=== PATIENT | male | born 1950 | race Caucasian/White ===

== ENCOUNTER → 2018-07-02 11:26 | Outpatient (CLI) | payer OTHER, SELFPAY ==
[2018-07-02 12:10] LABS: Add Manual Diff / Slide Review NO; Basophils Absolute Auto 0 /uL (0-100); Basophils Percent Auto 0.9 % (0-2); Eosinophils Absolute Auto 200 /uL (0-450); Eosinophils Percent Auto 4.7 % (2-4); Hematocrit 43.8 % (41-53); Hemoglobin 14.9 g/dL (13.5-17.5); Lymphocytes Absolute Auto 2100 /uL (1100-4500); Lymphocytes Percent Auto 40.2 % (25-40); Mean Corpuscular Hemoglobin 31.4 PG (26-34); Mean Corpuscular Volume 92.5 fL (80-100); Monocytes Absolute Auto 700 /uL (0-900); Monocytes Percent Auto 12.5 % (3-14); Neutrophils Absolute Auto 2200 /uL (1500-7000); Neutrophils Percent Auto 41.7 % (50-75); Platelet Count 160 X10^3/uL (150-400); Red Blood Cell Count 4.73 X10^6/uL (4.5-5.9); Red Cell Distribution Width 12.9 % (11.6-14.8); White Blood Cell Count 5.2 X10^3/uL (4.5-11.0)
[2018-07-02 12:20] LABS: Alanine Aminotransferase 47 IU/L (21-72); Albumin 4.5 g/dL (3.5-5.0); Albumin Globulin Ratio 1.4 (1.0-2.8); Alkaline Phosphatase 69 U/L (38-126); Aspartate Aminotransferase 51 IU/L (17-59); Bilirubin Total 0.7 mg/dL (0.2-1.3); Blood Urea Nitrogen 19 mg/dL (9-20); Calcium 9.7 mg/dL (8.4-10.2); Carbon Dioxide 25 mmol/L (22-32); Chloride 104 mmol/L (98-107); Cholesterol 238 mg/dL (140-199); Estimated Glomerular Filt Rate > 60.0 mL/min (>60); Globulin 3.2 g/dL (1.7-4.1); Glucose 109 mg/dL (80-110); HDL Cholesterol 63 mg/dL (40-60); HEMOLYSIS < 15 (0-50); LDL Cholesterol Calculated 155 mg/dL (<100); Potassium 4.4 mmol/L (3.4-5.1); Sodium 139 mmol/L (137-145); Total Protein 7.7 g/dL (6.3-8.2); Triglycerides 100 mg/dL (35-150)
[2018-07-02 12:51] LABS: Prostate Specific Antigen Scrn 0.784 ng/mL (0.1-4.0)
[2018-07-02 13:31] LABS: TSH w/ Reflex to FT4 2.02 uIU/mL (0.47-4.68)
== END ==
PROVIDERS: Family Provider Family Medicine; PCP Family Medicine; Visit Provider Family Medicine
DX: E78.5 Hyperlipidemia, unspecified (principal); E66.9 Obesity, unspecified; Z12.5 Encounter for screening for malignant neoplasm of prostate
CPT/HCPCS: 80053; 80061; 84443; 85025; G0103

== ENCOUNTER → 2018-09-27 09:24 | Outpatient (CLI) | payer OTHER, SELFPAY ==
[2018-09-27 10:07] LABS: Cholesterol 261 mg/dL (140-199); Glucose 110 mg/dL (80-110); HDL Cholesterol 90 mg/dL (40-60); LDL Cholesterol Calculated 146 mg/dL (<100); Triglycerides 123 mg/dL (35-150)
== END ==
PROVIDERS: PCP Family Medicine; Visit Provider Family Medicine
DX: E78.5 Hyperlipidemia, unspecified (principal); R73.03 Prediabetes
CPT/HCPCS: 36415; 80061; 82947

== ENCOUNTER 2019-05-19 23:50 | Emergency (ER) | payer OTHER, SELFPAY ==
--- NOTE | 2019-05-19 23:55 | ED_ITS ---
HPI - GI Bleed General Chief complaint: GI Bleed Stated complaint: bleeding from rectum Time Seen by Provider: 05/19/19 23:54 Source: patient and family Mode of arrival: Ambulatory Limitations: no limitations History of Present Illness HPI Narrative: 68-year-old male nonsmoker with history of lower extremity varicose veins presents with his and a chief complaint of painless rectal bleeding this evening. He states that he was preparing to have a bowel movement when he felt something drip on his leg and noted it was blood at which point he came to . He denies any dizziness, weakness or lightheadedness. He has had no diaphoresis, chest pain or shortness of breath. He denies any history of the same. He takes no blood thinners and states his last colonoscopy was 2 years ago and had no significant findings. He does admit to some firm stools alternating with diarrhea lately and has strain on the toilet, additionally he had a 5 [address] ride. He denies any abdominal pain. MD complaint: blood on toilet paper Onset (ago): minute(s) Pain Consistency: constant Severity: mild Relieving factors: none Exacerbating factors: none Treatments Prior to Arrival: none Related Data Home Medications Medication Instructions Recorded Confirmed omeprazole 20 mg PO QDAY #0 05/02/16 04/24/19 [calcium/magnesium] #0 03/27/17 04/24/19 [potassium otc] #0 03/27/17 04/24/19 vit C,E,zinc,copper-kokam3e 250 1 cap PO DAILY 08/15/18 04/24/19 mg-lutein 5 mg-zeaxanthin 1 mg capsule naproxen sodium 220 mg capsule 220 mg PO BID PRN 03/29/19 04/24/19 psyllium husk 3.4 gram/5.4 gram 1 tbsp PO DAILY 03/29/19 04/24/19 oral powder Previous Rx's Medication Instructions Recorded hydroxyzine HCl 25 mg tablet 25 mg PO BID PRN 30 Days #60 tab 04/24/19 hydrocortisone [Anusol-HC] 1 applictn CA BID-QID PRN #30 gram 05/20/19 Allergies Allergy/AdvReac Type Severity Reaction Status Date / Time No Known Drug Allergies Allergy Verified 04/24/19 15:21 Review of Systems Constitutional Constitutional: Denies chills, Denies fatigue, Denies fever(s), Denies frequent falls, Denies lethargy and Denies weakness Eyes Eyes: Denies change in vision, Denies eye discharge, Denies irritation and Denies loss of vision ENT Ears, Nose, Mouth, and Throat: Denies change in voice, Denies dizziness, Denies neck pain, Denies sore throat and Denies throat swelling Cardiovascular Cardiovascular: Denies chest pain, Denies irregular heart rhythm, Denies lightheadedness, Denies palpitations, Denies dyspnea, Denies dyspnea on exertion and Denies orthopnea Respiratory Respiratory: Denies cough, Denies dyspnea, Denies dyspnea on exertion and Denies wheezing Gastrointestinal Gastrointestinal: Denies abdominal pain, Denies change in bowel habits, Denies diarrhea, Denies nausea and Denies vomiting Comments: Bright red blood per rectum Genitourinary Genitourinary: Denies hematuria, Denies flank pain, Denies urinary incontinence and Denies urinary urgency Musculoskeletal Musculoskeletal: Denies back pain, Denies muscle weakness, Denies neck pain, Denies numbness and Denies tingling Integumentary/Breasts Skin/Breast: Denies pruritus, Denies erythema, Denies rash and Denies wounds Neurologic Neurologic: Denies behavioral changes, Denies confusion, Denies dizziness, Denies frequent falls, Denies loss of vision, Denies numbness, Denies tingling and Denies weakness Psychiatric Psychiatric: Denies anxiety, Denies behavioral changes, Denies confusion, Denies depression, Denies homicidal ideation and Denies suicidal ideation Endocrine Endocrine: Denies fatigue, Denies flushing and Denies palpitations Hematologic/Lymphatic Hematologic/Lymphatic: Denies easy bruising Allergic/Immunologic Allergic/Immunologic: Denies urticaria, Denies throat swelling and Denies wheezing Patient History Medical History Acne (Chronic 1961) Chicken pox (Resolved) Colon polyps (Resolved 2016) Eczema (Chronic 1950) GERD (gastroesophageal reflux disease) (Chronic) Hemorrhoids (Chronic) Hernia (Resolved 1987) Mumps (Resolved) Peripheral vascular disease (Chronic) Surgical History Anesthesia (Resolved) History of carpal tunnel repair (Resolved 04/26/17) History of colonoscopy with polypectomy (Resolved 2016) Status post hernia repair (Resolved 1997) Family History Brother Age: 75 Crohn's disease without complication, unspecified gastrointestinal tract location Father Alzheimer's dementia without behavioral disturbance, unspecified timing of dementia onset Tobacco use disorder Brother No problems noted. Grandfather No problems noted. Mother Hip fracture Social History Smoking Status: Never smoker Exam Narrative Exam Narrative: GEN: 68-year-old male appears stated age AOx3 and in mild distress EYES: Pupils are equal, round, and reactive to light and accommodation. Extraoccular muscles are intact bilaterally. There is no subconjunctival hemorrhage or exudate. CHEST: Lungs are clear to auscultation bilaterally and free of wheezes, rales, or rhonchi. Heart rate is regular rhythm, there are no murmurs, clicks, rubs, or gallops. There is no chest wall tenderness. ABD: Abdomen is soft and nontender. There is no guarding or rebound. Bowel sounds are normal in all 4 quadrants. There is no mass or organomegaly. RECTAL: Small external hemorrhoid with minimal bleeding. Small clout wiped away and mild bleeding noted. No thrombus. Rectal otherwise normal without pain or bleeding EXT: Full painless ROM of all extremities with no loss of sensation or strength. SKIN: Warm, pink, and dry. No erythema or rash Initial Vital Signs Initial Vital Signs: Vital Signs Temperature 97.5 F L 05/19/19 23:57 Pulse Rate 76 05/19/19 23:57 Respiratory Rate 18 05/19/19 23:57 Blood Pressure 168/94 H 05/19/19 23:57 Pulse Oximetry 97 05/19/19 23:57 Course Vital Signs Vital signs: Vital Signs - 8 hr 05/19/19 23:57 Temperature 97.5 F L Pulse Rate 76 Respiratory Rate 18 Blood Pressure 168/94 H Pulse Oximetry 97 Discharge Plan Departure Patient Disposition: Home Clinical Impression: Bleeding external hemorrhoids Instructions: DI for Hemorrhoids Activity Restrictions/Additional Instructions: *You have been diagnosed with [bleeding external hemorrhoid] *What to do: *Take medications as directed: Your prescription was sent to [facility]. There are multiple bwht-[id number] medications such as preparation H. also consider Sitz baths and a hemorrhoid donut *Follow up with your primary care provider in 2-3 days, call for an appointment. Let them know you were seen in the Emergency Department and that we ask that you be seen in follow up *Return to ER if you should have any new, worsening or concerning symptoms Prescriptions: New hydrocortisone [Anusol-HC] 2.5 % cream with perineal applicator 1 applictn CA BID-QID PRN (Reason: hemorrhoids) Qty: 30 RF: 0 No Action omeprazole 20 MG capsule,delayed release(DR/EC) 20 mg PO QDAY Qty: 0 RF: 0 [calcium/magnesium] Qty: 0 RF: 0 [potassium otc] Qty: 0 RF: 0 Ocuvite Adult 50 Plus 250-5-1 mg capsule 1 cap PO DAILY RF: 0 Metamucil 3.4 gram/5.4 gram powder 1 tbsp PO DAILY RF: 0 naproxen sodium [Aleve] 220 mg capsule 220 mg PO BID PRNRF: 0 hydroxyzine HCl 25 mg tablet 25 mg PO BID PRN (Reason: itching) 30 Days Qty: 60 RF: 0 Referrals: Emily Charles DO [Primary Care Provider] -
[2019-05-19 23:57] VITALS: BP 168/94; PULSE 76; RESP 18; TEMP 36.4; O2SAT 97
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
== END 2019-05-20 00:31 | disposition home or self-care (01) ==
PROVIDERS: Emergency Provider Emergency Medicine; PCP Family Medicine
DX: K64.4 Residual hemorrhoidal skin tags (principal); K62.5 Hemorrhage of anus and rectum
CPT/HCPCS: 99282

== ENCOUNTER → 2019-06-21 14:14 | Outpatient (CLI) | payer MEDICARE, SELFPAY ==
[2019-06-21 16:08] LABS: Blood Urea Nitrogen 15 mg/dL (9-20); Calcium 9.9 mg/dL (8.4-10.2); Carbon Dioxide 28 mmol/L (22-32); Chloride 100 mmol/L (98-107); Estimated Glomerular Filt Rate > 60.0 mL/min (>60); Glucose 122 mg/dL (80-110); HEMOLYSIS < 15 (0-50); Potassium 4.4 mmol/L (3.4-5.1); Sodium 138 mmol/L (137-145)
== END ==
PROVIDERS: PCP Family Medicine; Visit Provider Family Medicine
DX: R25.2 Cramp and spasm (principal)
CPT/HCPCS: 36415; 80048; 83735

== ENCOUNTER → 2019-08-26 09:20 | Outpatient (CLI) | payer MEDICARE, SELFPAY ==
[2019-08-26 10:19] LABS: Free T4, Direct Thyroxine 1.01 ng/dL (0.78-2.19)
[2019-08-26 10:33] LABS: Thyroid Stimulating Hormone 2.88 uIU/mL (0.47-4.68)
== END ==
PROVIDERS: PCP Family Medicine; Referring Provider Family Medicine; Visit Provider Family Medicine
DX: R53.83 Other fatigue (principal)
CPT/HCPCS: 36415; 84439; 84443; 84481

== ENCOUNTER → 2019-09-11 12:32 | Outpatient (CLI) | payer MEDICARE, SELFPAY ==
--- NOTE | 2019-09-11 12:34 | DI.MRI.S_ITS ---
PROCEDURE: MR BRAIN (IAC) WWO CON INDICATIONS: joint pain and parestesias TECHNIQUE: Noncontrast sagittal T1 spin echo, axial FLAIR, axial gradient echo, axial diffusion and ADC through the brain. Axial thin-slice 3D CISS, coronal TruFISP, axial T1 spin echo with fat saturation through the internal auditory canals. After the administration of contrast, thin slice axial and coronal T1 spin echo with fat saturation through the internal auditory canals, and axial T1 spin echo with fat saturation through the brain. COMPARISON: None. FINDINGS: Image quality: Excellent. Cerebellopontine angles: No cerebellopontine angle masses. Inner ear structures appear normally formed. No suspicious enhancement in the internal auditory canal or along the course of the 7th cranial nerve. CSF spaces: Ventricles are normal in size and shape. No extra-axial fluid collections. Basal cisterns are patent. Brain: No intracranial bleeds or mass effects. Guillory-white matter interface is intact. No abnormal intracranial enhancement. Diffusion weighted images demonstrate no acute ischemic insults. Brainstem appears normal. Normal intravascular flow voids are present. Skull and face: Calvarial marrow signal is normal. Orbits appear normal. Sinuses: Sinuses and mastoids are clear. IMPRESSION: Normal for age, source of current symptoms is not found. No skull base mass lesion or evidence of cranial nerve inflammation is seen. Minimal identifiable microvascular atherosclerotic change is seen within the deep white matter of each hemisphere. Dictated by: Jero Jenkins M.D. on 09/11/2019 at 14:21 Approved by: Jero Jenkins M.D. on 09/11/2019 at 14:24
== END ==
PROVIDERS: PCP Family Medicine; Referring Provider Family Medicine; Visit Provider Family Medicine
DX: M25.50 Pain in unspecified joint (principal); R20.2 Paresthesia of skin
CPT/HCPCS: 70553

== ENCOUNTER → 2019-09-16 11:24 | Outpatient (CLI) | payer MEDICARE, SELFPAY ==
--- NOTE | 2019-09-16 11:26 | DI.US.S_ITS ---
PROCEDURE: US SOFT TISSUE HEAD AND NECK INDICATIONS: TMJ TECHNIQUE: Real-time scanning was performed of the neck region of interest, with image documentation. Doppler imaging was also employed. COMPARISON: [facility], MR, MR BRAIN ([facility]) WWO CON, 09/11/2019, 12:52. FINDINGS: Scanning is performed at the area of clinical concern involving the left jaw to the left temporal region. Within this area, no masses or abnormal fluid collections are seen. A normal appearing lymph node can be seen. Comparison images were obtained of the right side and no significant abnormality can be seen. IMPRESSION: No masses or other significant abnormality can be seen within the area of clinical concern ultrasound. Dictated by: Bienvenido Sandoval M.D. on 09/16/2019 at 11:45 Approved by: Bienvenido Sandoval M.D. on 09/16/2019 at 11:47
== END ==
PROVIDERS: PCP Family Medicine; Referring Provider Family Medicine; Visit Provider Family Medicine
DX: M26.602 Left temporomandibular joint disorder, unspecified (principal)
CPT/HCPCS: 76536

== ENCOUNTER → 2019-12-25 12:16 | Outpatient (CLI) | payer MEDICARE, SELFPAY ==
[2019-12-25 13:44] LABS: Alanine Aminotransferase 38 IU/L (<50); Albumin 4.4 g/dL (3.5-5.0); Albumin Globulin Ratio 1.6 (1.0-2.8); Alkaline Phosphatase 77 U/L (38-126); Aspartate Aminotransferase 51 IU/L (17-59); BUN Creatinine Ratio 15.7 (6-22); Bilirubin Total 0.7 mg/dL (0.2-1.3); Blood Urea Nitrogen 14 mg/dL (9-20); Calcium 9.8 mg/dL (8.4-10.2); Carbon Dioxide 28 mmol/L (22-32); Chloride 104 mmol/L (98-107); Cholesterol 248 mg/dL (140-199); Estimated Glomerular Filt Rate > 60.0 mL/min (>60); Globulin 2.7 g/dL (1.7-4.1); Glucose 112 mg/dL (80-110); HDL Cholesterol 68 mg/dL (40-60); HEMOLYSIS < 15 (0-50); LDL Cholesterol Calculated 155 mg/dL (<100); Potassium 4.3 mmol/L (3.4-5.1); Sodium 138 mmol/L (137-145); Total Protein 7.1 g/dL (6.3-8.2); Triglycerides 125 mg/dL (35-150)
== END ==
PROVIDERS: PCP Family Medicine; Referring Provider Family Medicine; Visit Provider Family Medicine
DX: E66.9 Obesity, unspecified (principal); E78.5 Hyperlipidemia, unspecified; R03.0 Elevated blood-pressure reading, without diagnosis of hypertension; R73.03 Prediabetes
CPT/HCPCS: 36415; 80053; 80061

== ENCOUNTER → 2019-12-26 12:01 | Outpatient (CLI) | payer MEDICARE, SELFPAY ==
[2019-12-30 00:41] LABS: COVID19 Sendout Not Detected (Not Detected)
== END ==
PROVIDERS: PCP Family Medicine; Visit Provider Physician Assistant
DX: J02.9 Acute pharyngitis, unspecified (principal)
CPT/HCPCS: 87635

== ENCOUNTER → 2020-10-15 09:11 | Outpatient (CLI) | payer OTHER, SELFPAY ==
[2020-10-15 11:16] LABS: Alanine Aminotransferase 23 IU/L (<50); Albumin 4.5 g/dL (3.5-5.0); Albumin Globulin Ratio 1.5 (1.0-2.8); Alkaline Phosphatase 85 U/L (38-126); Aspartate Aminotransferase 36 IU/L (17-59); BUN Creatinine Ratio 13.4 (6-22); Bilirubin Total 0.8 mg/dL (0.2-1.3); Blood Urea Nitrogen 11 mg/dL (9-20); Calcium 9.8 mg/dL (8.4-10.2); Carbon Dioxide 25 mmol/L (22-32); Chloride 101 mmol/L (98-107); Cholesterol 273 mg/dL (140-199); Estimated Glomerular Filt Rate > 60.0 mL/min (>60); Glucose 120 mg/dL (80-110); HDL Cholesterol 86 mg/dL (40-60); HEMOLYSIS < 15 (0-50); LDL Cholesterol Calculated 157 mg/dL (<100); Sodium 135 mmol/L (137-145); Total Protein 7.5 g/dL (6.3-8.2); Triglycerides 152 mg/dL (35-150)
== END ==
PROVIDERS: PCP Family Medicine; Referring Provider Family Medicine; Visit Provider Family Medicine
DX: E66.9 Obesity, unspecified (principal); I10 Essential (primary) hypertension; E78.5 Hyperlipidemia, unspecified; R73.03 Prediabetes; S03.40XA Sprain of jaw, unspecified side, initial encounter
CPT/HCPCS: 36415; 80053; 80061

== ENCOUNTER → 2021-04-12 11:08 | Outpatient (CLI) | payer OTHER, SELFPAY ==
[2021-04-12 12:21] LABS: Alanine Aminotransferase 27 IU/L (<50); Albumin 4.6 g/dL (3.5-5.0); Albumin Globulin Ratio 1.4 (1.0-2.8); Alkaline Phosphatase 78 U/L (38-126); Aspartate Aminotransferase 48 IU/L (17-59); BUN Creatinine Ratio 14.9 (6-22); Bilirubin Total 0.2 mg/dL (0.2-1.3); Blood Urea Nitrogen 15 mg/dL (9-20); Calcium 9.6 mg/dL (8.4-10.2); Carbon Dioxide 25 mmol/L (22-32); Chloride 104 mmol/L (98-107); Estimated Glomerular Filt Rate > 60.0 mL/min (>60); Globulin 3.2 g/dL (1.7-4.1); Glucose 103 mg/dL (80-110); HEMOLYSIS < 15 (0-50); Sodium 140 mmol/L (137-145); Total Protein 7.8 g/dL (6.3-8.2)
[2021-04-12 14:55] LABS: Microalbumin Urine Random 1.5 mg/dL (0-1.6)
[2021-04-12 14:56] LABS: Creatinine Urine Random 117.8 mg/dL; Microalbumi Creatinin Ratio Ur 12.7 ug/mg CR (<30)
== END ==
PROVIDERS: PCP Family Medicine; Referring Provider Family Medicine; Visit Provider Family Medicine
DX: E66.9 Obesity, unspecified (principal); E78.5 Hyperlipidemia, unspecified; I10 Essential (primary) hypertension; R73.03 Prediabetes
CPT/HCPCS: 36415; 80053; 82043; 82570

== ENCOUNTER → 2021-06-01 09:11 | Outpatient (CLI) | payer OTHER, SELFPAY ==
[2021-06-02 09:36] LABS: Interpretation Negative (Negative)
== END ==
PROVIDERS: PCP Family Medicine; Referring Provider Family Medicine; Visit Provider Family Medicine
DX: K21.9 Gastro-esophageal reflux disease without esophagitis (principal)
CPT/HCPCS: 83013

== ENCOUNTER → 2021-09-28 09:05 | Outpatient (CLI) | payer OTHER, SELFPAY ==
[2021-09-28 10:17] LABS: Add Manual Diff / Slide Review NO; Basophils Absolute Auto 0 /uL (0-100); Basophils Percent Auto 0.8 % (0-2); Eosinophils Absolute Auto 200 /uL (0-450); Eosinophils Percent Auto 4.2 % (2-4); Hematocrit 38.5 % (41-53); Hemoglobin 12.6 g/dL (13.5-17.5); Lymphocytes Absolute Auto 1100 /uL (1100-4500); Lymphocytes Percent Auto 20.1 % (25-40); Mean Corpuscular HGB Conc 32.7 % (30-36); Mean Corpuscular Hemoglobin 26.9 PG (26-34); Mean Corpuscular Volume 82.2 fL (80-100); Monocytes Absolute Auto 900 /uL (0-900); Monocytes Percent Auto 15.6 % (3-14); Neutrophils Absolute Auto 3300 /uL (1500-7000); Neutrophils Percent Auto 59.3 % (50-75); Platelet Count 186 X10^3/uL (150-400); Red Blood Cell Count 4.68 X10^6/uL (4.5-5.9); Red Cell Distribution Width 15.9 % (11.6-14.8); White Blood Cell Count 5.5 X10^3/uL (4.5-11.0)
[2021-09-28 10:32] LABS: Alanine Aminotransferase 18 IU/L (<50); Albumin 4.7 g/dL (3.5-5.0); Albumin Globulin Ratio 1.4 (1.0-2.8); Alkaline Phosphatase 88 U/L (38-126); Aspartate Aminotransferase 27 IU/L (17-59); BUN Creatinine Ratio 12.2 (6-22); Bilirubin Total 0.6 mg/dL (0.2-1.3); Blood Urea Nitrogen 11 mg/dL (9-20); C-Reactive Protein Quant 0.6 mg/dL (<1.0); Calcium 9.5 mg/dL (8.4-10.2); Carbon Dioxide 25 mmol/L (22-32); Chloride 101 mmol/L (98-107); Cholesterol 254 mg/dL (140-199); Estimated Glomerular Filt Rate > 60.0 mL/min (>60); Globulin 3.4 g/dL (1.7-4.1); Glucose 127 mg/dL (80-110); HDL Cholesterol 69 mg/dL (40-60); HEMOLYSIS < 15 (0-50); LDL Cholesterol Calculated 153 mg/dL (<100); Potassium 4.2 mmol/L (3.4-5.1); Sodium 137 mmol/L (137-145); Total Protein 8.1 g/dL (6.3-8.2); Triglycerides 161 mg/dL (35-150)
[2021-09-28 10:49] LABS: Erythrocyte Sedimentation Rate 29 MM/HR (0-15)
== END ==
PROVIDERS: PCP Family Medicine; Referring Provider Family Medicine; Visit Provider Family Medicine
DX: E78.5 Hyperlipidemia, unspecified (principal); I10 Essential (primary) hypertension; R73.03 Prediabetes
CPT/HCPCS: 36415; 80053; 80061; 85025; 85651; 86140

== ENCOUNTER → 2021-11-10 11:29 | Outpatient (CLI) | payer OTHER, SELFPAY ==
[2021-11-12 11:09] LABS: Hemoglobin A1C% w Est Avg Glu 6.1 % (4.0-6.0)
[2021-11-12 11:21] LABS: HEMOLYSIS < 15 (0-50); Iron 79 ug/dL (49-181)
[2021-11-12 11:32] LABS: Percent Iron Saturation 18 % (20-50); Total Iron Binding Capacity 443 ug/dL (261-462); Transferrin 368 mg/dL (206-381)
[2021-11-12 11:52] LABS: TSH w/ Reflex to FT4 2.51 uIU/mL (0.47-4.68)
[2021-11-12 12:50] LABS: Ferritin 11 ng/mL (18-464)
== END ==
PROVIDERS: PCP Family Medicine; Referring Provider Family Medicine; Visit Provider Family Medicine
DX: E78.5 Hyperlipidemia, unspecified (principal); I10 Essential (primary) hypertension; E66.9 Obesity, unspecified; R73.03 Prediabetes
CPT/HCPCS: 36415; 82728; 83036; 83540; 83550; 84443

== ENCOUNTER → 2022-03-24 13:55 | Outpatient (CLI) | payer OTHER, SELFPAY ==
[2022-03-24 15:22] LABS: Add Manual Diff / Slide Review NO; Basophils Absolute Auto 100 /uL (0-100); Eosinophils Absolute Auto 300 /uL (0-450); Eosinophils Percent Auto 5.6 % (2-4); Hematocrit 37.7 % (41-53); Hemoglobin 12.6 g/dL (13.5-17.5); Lymphocytes Absolute Auto 2100 /uL (1100-4500); Lymphocytes Percent Auto 36.2 % (25-40); Mean Corpuscular HGB Conc 33.6 % (30-36); Mean Corpuscular Volume 83.5 fL (80-100); Monocytes Absolute Auto 800 /uL (0-900); Monocytes Percent Auto 13.1 % (3-14); Neutrophils Absolute Auto 2600 /uL (1500-7000); Neutrophils Percent Auto 44.1 % (50-75); Platelet Count 211 X10^3/uL (150-400); Red Blood Cell Count 4.51 X10^6/uL (4.5-5.9); Red Cell Distribution Width 15.4 % (11.6-14.8); White Blood Cell Count 5.8 X10^3/uL (4.5-11.0)
[2022-03-24 15:30] LABS: Hemoglobin A1C% w Est Avg Glu 5.9 % (4.0-6.0)
[2022-03-24 15:42] LABS: Alanine Aminotransferase 27 IU/L (<50); Albumin 4.3 g/dL (3.5-5.0); Albumin Globulin Ratio 1.3 (1.0-2.8); Alkaline Phosphatase 81 U/L (38-126); Aspartate Aminotransferase 44 IU/L (17-59); BUN Creatinine Ratio 13.7 (6-22); Bilirubin Total 0.4 mg/dL (0.2-1.3); Blood Urea Nitrogen 14 mg/dL (9-20); Calcium 9.3 mg/dL (8.4-10.2); Carbon Dioxide 26 mmol/L (22-32); Chloride 102 mmol/L (98-107); Estimated Glomerular Filt Rate > 60 mL/min (>60); Globulin 3.2 g/dL (1.7-4.1); Glucose 110 mg/dL (80-110); HEMOLYSIS < 15 (0-50); Potassium 4.6 mmol/L (3.4-5.1); Sodium 138 mmol/L (137-145); Total Protein 7.5 g/dL (6.3-8.2)
== END ==
PROVIDERS: PCP Family Medicine; Referring Provider Family Medicine; Visit Provider Family Medicine
DX: I10 Essential (primary) hypertension (principal); R05.9 Cough, unspecified
CPT/HCPCS: 36415; 80053; 83036; 85025

== ENCOUNTER → 2022-04-05 09:51 | Outpatient (CLI) | payer OTHER, SELFPAY ==
--- NOTE | 2022-04-05 09:51 | DI.CT.S_ITS ---
PROCEDURE: CT CHEST WO CON INDICATIONS: alf smoker, chronic cough TECHNIQUE: Noncontrast 2.0-2.5 mm thick sections acquired from the pulmonary apices to the posterior costophrenic angles. 7 mm thick axial MIP, and 5 mm coronal and sagittal reformats were then acquired. A low radiation dose technique was utilized. COMPARISON: None. FINDINGS: Image quality: Diagnostic, given the low radiation dose technique. Lungs and pleura: No acute airspace opacities. There is mild peripheral interlobular septal thickening which is more conspicuous on the right than on the left and is more confluent in the upper and mid lungs. No pulmonary nodules. A small region of calcified plaque is present at the right lung base. Mediastinum: Heart size is normal. No pericardial effusion. No mediastinal adenopathy by size criteria. Thoracic aorta and central pulmonary arteries are normal in size. Esophagus is normal in caliber. No hiatal hernia. Bones and chest wall: No suspicious bony lesions. No vertebral body compression fractures. No axillary or supraclavicular adenopathy by size criteria. Thyroid gland is unremarkable. Abdomen: Visualized upper abdomen solid organs and bowel loops appear normal in the absence of contrast. IMPRESSION: 1. Peripheral interlobular septal thickening suggesting early pulmonary fibrosis. 2. Subtle calcified pleural plaque at the right lung base raising the suspicion for prior asbestos exposure. LUNG-RADS 1; annual CT follow-up recommended. Dictated by: Pepper Carrion M.D. on 04/05/2022 at 12:09 Approved by: Pepper Carrion M.D. on 04/05/2022 at 12:15
== END ==
PROVIDERS: PCP Family Medicine; Referring Provider Family Medicine; Visit Provider Family Medicine
DX: R05.9 Cough, unspecified (principal); J92.9 Pleural plaque without asbestos; Z87.891 Personal history of nicotine dependence
CPT/HCPCS: 71250

== ENCOUNTER → 2022-06-22 10:20 | Outpatient (CLI) | payer OTHER, SELFPAY ==
[2022-06-22 13:10] LABS: COVID-19 CEPHEID 4-PLEX PCR Negative (Negative); Influenza A - CEPHEID Flu A NEGATIVE (NEGATIVE); Influenza B - CEPHEID Flu B NEGATIVE (NEGATIVE); Respiratory Syncytial Virus Negative (Negative)
== END ==
PROVIDERS: PCP Family Medicine; Visit Provider Physician Assistant Medical
DX: R05.1 Acute cough (principal)
CPT/HCPCS: 0241U

== ENCOUNTER → 2022-06-25 10:41 | Outpatient (CLI) | payer OTHER, SELFPAY ==
--- NOTE | 2022-06-25 | DI.CT.S_ITS ---
PROCEDURE: CT CHEST HIGH RESOLUTION INDICATIONS: Interstitial pulmonary disease, unspecified. Prior chest CT 04/05/22. 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 TECHNIQUE: Noncontrast 1.0 and 5.0 mm thick contiguous axial sections from the pulmonary apex to the posterior costophrenic angles, with 7 mm thick coronal and sagittal MIP reformats. 1 mm thick dynamic expiratory images acquired through the upper, mid, and lower lungs. 1.0 mm thick axial sections acquired from the leana to the posterior costophrenic angles in the prone end-inspiration position. For radiation dose reduction, the following was used: automated exposure control, adjustment of mA and/or kV according to patient size. COMPARISON: [facility], CT, CT CHEST WO [facility], 04/05/2022, 9:59. FINDINGS: Image quality: Excellent. Lungs: The previously identified nonspecific chronic interstitial prominence is consistent with prior smoking history. There is a new finding of mild patchy alveolitis scattered within the right mid and lower lung in a pattern suggestive of atypical/viral pneumonia. Pleura: No pleural effusions or pneumothorax. Mediastinum: Heart size is normal. No pericardial effusion. Thoracic aorta and central pulmonary arteries are normal in size. Esophagus is normal in caliber. Bones and chest wall: No suspicious bony lesions. No vertebral body compression fractures. Abdomen: Visualized upper abdominal solid organs and bowel loops appear normal. IMPRESSION: No lung mass is seen. Chronic mild interstitial prominence is consistent with longstanding smoking history. New finding of patchy right mid and lower lung alveolitis pattern consistent with possible early manifestation of atypical/viral pneumonia. Dictated by: Jero Jenkins M.D. on 06/25/2022 at 20:26 Approved by: Jero Jenkins M.D. on 06/25/2022 at 20:33
== END ==
PROVIDERS: PCP Family Medicine; Referring Provider Specialist; Visit Provider Specialist
DX: J84.9 Interstitial pulmonary disease, unspecified (principal); Z87.891 Personal history of nicotine dependence
CPT/HCPCS: 71250

== ENCOUNTER 2022-08-01 12:14 | Day surgery (SDC) | payer OTHER, SELFPAY ==
--- NOTE | 2022-08-01 | PATH_ITS ---
[facility] Accession Number: [id number] No. of containers..05 Tissue . 01 Material submitted: . PART A: duodenum - DUODENDUM PART B: stomach - ANTRUM PART C: stomach - BODY PART D: esophagus - DISTAL ESOPHAGUS PART E: colon - ASCENDING POLYPS . 01 Diagnosis: A. Duodenum, Biopsy: Duodenal mucosa with no diagnostic abnormality. Negative for active inflammation, features of sprue, dysplasia, or malignancy. . B. Stomach, Antrum, Biopsy: Antral mucosa with mild chronic gastritis. No evidence of Helicobacter organisms on H/E stain. Negative for intestinal metaplasia. Negative for dysplasia or malignancy. . C. Stomach, Body, Biopsy: Body-type mucosa with mild chronic inflammation and proton pump inhibitor-like changes. No evidence of Helicobacter organisms on H/E stain. Negative for intestinal metaplasia. Negative for dysplasia or malignancy. . D. Distal Esophagus, Biopsy: Squamocolumnar junctional mucosa with mild active inflammation. Negative for intestinal metaplasia. Negative for dysplasia and malignancy. . E. Ascending Colon, Polyps, Biopsies: Tubular adenoma in four of five fragments. [facility] 08/05/2022 1243 Local . 01 Electronically signed: . Berkley Fung MD, Pathologist NPI- [id number] . 01 Gross description: . Part A: DUODENDUM: Received in formalin are 2 fragment(s) of moralez, soft tissue measuring 0.3 x 0.2 x 0.1 cm to 0.2 x 0.2 x 0.2 cm submitted entirely in 1 cassette(s) Part B: ANTRUM: Received in formalin is 1 fragment(s) of moralez, soft tissue measuring 0.2 x 0.2 x 0.1 cm submitted entirely in 1 cassette(s) Part C: BODY: Received in formalin are multiple fragment(s) of moralez, soft tissue measuring 0.7 x 0.7 x 0.1 cm in aggregate submitted entirely in 1 cassette(s) Part D: DISTAL ESOPHAGUS: Received in formalin are 2 fragment(s) of moralez, soft tissue measuring 0.2 x 0.1 x 0.1 cm to 0.1 x 0.1 x 0.1 cm submitted entirely in 1 cassette(s) Part E: ASCENDING POLYPS: Received in formalin are multiple fragment(s) of moralez, soft tissue measuring 1.0 x 0.5 x 0.1 cm in aggregate submitted entirely in 1 cassette(s) /CPE 08/02/2022 0601 Local . 01 Pathologist provided ICD-10: D12.2, K21.9, Z86.010 . 01 CPT . 672923, 963480, 891727, [id number], [id number] Specimen Comment: A courtesy copy of this report has been sent to [phone] Performed at: 01 [facility] [address] [place] [address], [place], [place] [id number] MD Fan Chino MD Phone: [phone]
[2022-08-01 12:33] VITALS: BP 147/83; PULSE 83; RESP 16; TEMP 36.1; O2SAT 97; BMI 33.9
[2022-08-01] MEDS: LACTATED RINGERS 1,000 ML 100 ML IV ×2 (12:52→14:18)
--- NOTE | 2022-08-01 13:12 | PM.HP.1 ---
History of Present Illness History of Present Illness Date Patient Seen: 08/01/22 Time Patient Seen: 13:12 Chief complaint: SDC Narrative: I reviewed the office note from April 26, 2022. No significant changes. Patient History Medical History Acid reflux Acne (1961) Chicken pox Colon polyps (2016) Eczema (1950) Essential hypertension GERD (gastroesophageal reflux disease) Hemorrhoids Hernia (1987) Mumps Peripheral vascular disease Small bowel obstruction Surgical History Anesthesia History of carpal tunnel repair (04/26/17) History of colonoscopy with polypectomy (2016) Status post hernia repair (1997) Family & Social History Family History Brother Age: 78 Crohn's disease without complication, unspecified gastrointestinal tract location Father Alzheimer's dementia without behavioral disturbance, unspecified timing of dementia onset Tobacco use disorder Brother No problems noted. Grandfather No problems noted. Mother Hip fracture Social History: household members significant other Tobacco & Substance use: Smoking Status Former smoker alcohol intake current alcohol intake frequency 0-2 drinks per day Substance Use Type former substance user Meds Home Medications and Allergies Home Medications Medication Instructions Recorded Confirmed Type psyllium husk 3.4 gram/5.4 gram 1 tbsp PO DAILY 03/29/19 08/01/22 History oral powder (Metamucil) multivitamin 1 cap PO DAILY 06/21/19 08/01/22 History omeprazole 20 mg capsule,delayed 20 mg PO DAILY 10/19/20 08/01/22 History release amlodipine 10 mg tablet 10 mg PO DAILY #90 tabs 11/08/21 08/01/22 Rx Allergies Allergy/AdvReac Type Severity Reaction Status Date / Time No Known Drug Allergies Allergy Verified 08/01/22 12:52 Review of Systems Review of Systems ROS: Yes All systems reviewed with the patient and are negative except as otherwise documented Exam Vital Signs (past 8 hours): - 08/01/22 12:33 Temperature 97.0 F L Pulse Rate 83 Respiratory Rate 16 Blood Pressure 147/83 H Pulse Oximetry 97 Oxygen Delivery Method Room Air Oxygen Delivery Method Room Air Const General: cooperative HENMT Head: normal to inspection Eyes General: appearance normal, both eyes and all related structures Other: Subconjunctival hemorrhage on the right evident from recent ophthalmologic intervention. Neck Neck: normal visual inspection Chest Chest: normal inspection of the chest Resp Effort & Inspection: normal respiratory effort Cardio Rate: regular rate GI Inspection: normal to inspection Skin General: no rashes or lesions noted Neuro General: patient alert and patient awake Extrem General: normal to inspection and no pedal edema Psych Appearance: grossly normal Assessment & Plan Assessment & Plan narrative: 71-year-old male with a personal history of colon polyps. He also has a history of GERD and anemia. EGD and colonoscopy are pursued today. Time Spent With Patient Critical Care time: I spent a total of [] minutes of critical care time on this patient's care today; this time is exclusive of procedural time.
--- NOTE | 2022-08-01 13:15 | PM.PREOP ---
Pre-operative Note Interval Note History & Physical reviewed/Exam performed by Physician: Yes Changes to H&P: No ASA Class (for procedural sedation): II
--- NOTE | 2022-08-01 14:21 | P.OP.EGD&C_ITS ---
Operative Date/Time/Diagnoses Date of procedure: 08/01/22 Time of procedure: 14:21 Pre-op diagnosis: Anemia GERD history of colon polyps Post-op diagnosis: same Procedure & Clinicians Study performed: EGD with biopsies and colonoscopy with hot snare polypectomy, APC ablation, and cold forceps polypectomy. Same procedure as scheduled: Yes Indications: Anemia, GERD, personal history of colon polyps Surgeon: Jatinder Cherry Procedure Notes SCOAP/Timeout: Done Procedure in detail: After the risks and benefits were explained, written and verbal informed consent was obtained. The patient was brought into the procedure room and placed into the left lateral decubitus position. Please see anesthesia notes for sedation details. The scope was introduced into the mouth through the bite block and advanced under direct visualization to the 2nd portion of the duodenum. The scope was slowly withdrawn carefully examining the mucosa for any defects or lesions. Retroflexed views were accomplished in the stomach. The stomach was decompressed, the scope was then removed from the patient who tolerated the procedure well. The patient was then turned around a digital rectal examination accomplished no significant pathology appreciated. The scope was introduced into the rectum and advanced to the cecum as identified by the appendiceal orifice and ileocecal valve. The scope was slowly withdrawn to carefully examine the mucosa for any defects or lesions. Multiple direct views were made through the dentate line for exclusion of pathology. The colon was decompressed scope removed the patient who tolerated the procedure well. Adult colonoscope Bowel prep adequate Prolonged procedure secondary to challenges with navigation and right colon pathology. Scope withdrawal time: 10 minutes Sedation minutes: 59 Complications: none Impression: 1. Duodenum: This was visually normal from the bulb through the 2nd portion. Biopsies were taken from D2 for exclusion of sprue. 2. Stomach: No gastric outlet obstruction no ulcers no mass lesions. Mild gastropathy was appreciated and biopsies were therefore acquired from the antrum for exclusion of H pylori. The patient had a very nodular proximal stomach with several benign-appearing polyps. Multiple gastric biopsies were taken from the proximal mucosa for histopathologic analysis. 3. Esophagus: The squamocolumnar junction correlated with the top of the gastric folds for the most part. However there was some mild variability to the Z-line suggestive of possible non circumferential short-segment tongues of Barretts with a small island of Colunga's in the distal esophagus. Biopsies were acquired from the salmon-colored mucosa for histopathologic analysis. GE junction was at about 40 cm from the incisors. 4. Colon: Patient had a very lengthy redundant colon. Achieving cecal intubation was challenging requiring a stiffening tyson abdominal pressure and change to supine position. There were 2 subtle nonbleeding approximately 5-6 mm AVMs in the cecum ablated with a straight fire APC probe using 0.8 L per minute and 20 w setting. On the ileocecal valve was a sessile 6-7 mm polyp removed with hot snare. Residual polyp that seemed to have been left behind after the 1st excision was cold snared and then ablated with the tip of the polypectomy snare. There was an additional small diminutive polyp the opposite wall from the ileocecal valve removed with cold forceps and submitted together. Third polyp was thought to exist in this location but after careful inspection I only uncovered what appeared to be a subtle slightly everted shallow diverticulum so this was left alone. Grade 2 hemorrhoids were noted on direct views. Endoscopic diagnosis 1. Gastropathy 2. Gastric nodularity 3. Irregular Z-line 4. 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 Lengthy redundant colon Post-procedure Plan for aftercare: 1. Await histopathology. 2. Repeat colonoscopy 3 years considering findings in the right colon and personal history of colon polyps. 3. Follow up CBC in primary care. Should there be evidence of iron-deficiency anemia that persists, consider capsule endoscopy. 4. Surveillance EGD may be considered following pa thology review. Disposition: PACU
[2022-08-01 14:23] VITALS: BP 122/73; PULSE 60; RESP 15; TEMP 36.6; O2SAT 98
[2022-08-01 14:27] VITALS: BP 111/74; PULSE 61; RESP 15; O2SAT 96
[2022-08-01 14:32] VITALS: BP 126/77; PULSE 69; RESP 12; TEMP 36.6; O2SAT 98
[2022-08-01 14:36] VITALS: BP 126/77; PULSE 63; RESP 17; TEMP 36.6; O2SAT 98
== END 2022-08-01 14:51 | disposition home or self-care (01) ==
PROVIDERS: PCP Family Medicine; Referring Provider Internal Medicine Gastroenterology; Visit Provider Internal Medicine Gastroenterology
PROC: 0DJD8ZZ Inspection of Lower Intestinal Tract, Via Natural or Artificial Opening Endoscopic (ICD-10-PCS; CPT 45378; principal; 2022-08-01 13:15)
PROC: 0DJ08ZZ Inspection of Upper Intestinal Tract, Via Natural or Artificial Opening Endoscopic (ICD-10-PCS; CPT 43235; 2022-08-01 13:15)
DX: D64.9 Anemia, unspecified (principal); Z86.010 Personal history of colon polyps; K21.9 Gastro-esophageal reflux disease without esophagitis; K31.9 Disease of stomach and duodenum, unspecified; K22.70 Barrett's esophagus without dysplasia; Q27.39 Arteriovenous malformation, other site; K57.30 Diverticulosis of large intestine without perforation or abscess without bleeding; K64.1 Second degree hemorrhoids; K29.50 Unspecified chronic gastritis without bleeding; K20.90 Esophagitis, unspecified without bleeding; D12.2 Benign neoplasm of ascending colon
CPT/HCPCS: 43239; 45385; 45388; 45380; J2704; J3010

== ENCOUNTER → 2022-08-11 13:49 | Outpatient (CLI) | payer OTHER, SELFPAY ==
--- NOTE | 2022-08-17 10:15 | P.PFT.S_ITS ---
Pulmonary Function Test Referral & Results Date Patient Seen: 09/08/22 Requesting provider: Brooklynn Cadet Results: The spirometry demonstrates an FVC of 4.09 L which is 87% of predicted. The FEV1 was measured at 2.50 L which is 73% of predicted. The FEV1/FVC ratio was 61 which is 83% of predicted. Following the administration of bronchodilator there was a 14% improvement in FEV1 and a 36% improvement in FEF 25-75%. Lung volumes show an SVC of 4.31 L which is 89% of predicted. The diffusing capacity was measured at 23.76 which is 67% of predicted. No hemoglobin value was provided, so no correction for potential anemia could be made, if appropriate. The maximum voluntary ventilation was normal Interpretation: This study demonstrates mild obstructive lung disease based on reduction FEV1 although FEV1/FVC ratio is relatively preserved there is some evidence of benefit following bronchodilator administration particularly small airway flow as above based on improvement in FEF 25-75% There is a minimal reduction in lung volumes which suggest the possibility of very minimal restrictive lung disease There is a moderate reduction diffusing capacity suggesting disease at the capi llary alveolar level as well Clinical correlation suggested
== END ==
PROVIDERS: PCP Family Medicine; Referring Provider Specialist; Visit Provider Specialist
DX: J84.89 Other specified interstitial pulmonary diseases (principal); Z87.891 Personal history of nicotine dependence
CPT/HCPCS: 94060; 94726; 94729

== ENCOUNTER → 2023-04-03 11:25 | Outpatient (CLI) | payer OTHER, SELFPAY ==
--- NOTE | 2023-04-03 11:27 | DI.RAD.S_ITS ---
PROCEDURE: XR HIP W PEL IF DONE RT 2V INDICATIONS: eval Right hip pain TECHNIQUE: AP pelvis with lateral view(s) of the right hip(s). COMPARISON: None. FINDINGS: Bones: No fractures or dislocations. Mild degenerative changes of the bilateral hips. Pelvic ring appears intact. No suspicious bony lesions. Degenerative changes of the visualized lower lumbar spine and pubic symphysis. Soft tissues: The visualized bowel gas pattern is normal. No suspicious soft tissue calcifications. IMPRESSION: No acute osseous abnormalities. Mild degenerative changes of the bilateral hips. Dictated by: Todd Carlson M.D. on 04/03/2023 at 14:14 Approved by: Todd Carlson M.D. on 04/03/2023 at 14:15
== END ==
PROVIDERS: PCP Family Medicine; Referring Provider Family Medicine; Visit Provider Family Medicine
DX: M25.551 Pain in right hip (principal)
CPT/HCPCS: 73502

== ENCOUNTER 2023-05-31 11:29 | Emergency (ER) | payer OTHER, SELFPAY ==
[2023-05-31] VITALS (13 sets, daily range): BP systolic 127–175; BP diastolic 68–79; PULSE 50–83; RESP 16–18; TEMP 36.3; O2SAT 97–100; BMI 35.9
[2023-05-31 12:21] LABS: Add Manual Diff / Slide Review NO; Basophils Absolute Auto 100 /uL (0-100); Eosinophils Absolute Auto 200 /uL (0-450); Eosinophils Percent Auto 4.4 % (2-4); Lymphocytes Absolute Auto 1700 /uL (1100-4500); Lymphocytes Percent Auto 32.4 % (25-40); Mean Corpuscular HGB Conc 34.2 % (30-36); Mean Corpuscular Hemoglobin 30.6 PG (26-34); Mean Corpuscular Volume 89.3 fL (80-100); Monocytes Absolute Auto 900 /uL (0-900); Monocytes Percent Auto 16.6 % (3-14); Neutrophils Absolute Auto 2300 /uL (1500-7000); Neutrophils Percent Auto 45.6 % (50-75); Platelet Count 161 X10^3/uL (150-400); Red Blood Cell Count 3.92 X10^6/uL (4.5-5.9); Red Cell Distribution Width 14.8 % (11.6-14.8); White Blood Cell Count 5.1 X10^3/uL (4.5-11.0)
[2023-05-31 12:26] LABS: Prothrombin Time 11.7 SECONDS (9.4-12.5)
[2023-05-31 12:29] LABS: PTT Partial Thromboplastin Tim 28 SECONDS (25.1-36.5)
[2023-05-31 12:34] LABS: Alanine Aminotransferase 29 IU/L (<50); Albumin 3.9 g/dL (3.5-5.0); Albumin Globulin Ratio 1.2 (1.0-2.8); Alkaline Phosphatase 83 U/L (38-126); Aspartate Aminotransferase 41 IU/L (17-59); BUN Creatinine Ratio 17.1 (6-22); Bilirubin Total 0.6 mg/dL (0.2-1.3); Blood Urea Nitrogen 13 mg/dL (9-20); Calcium 9.4 mg/dL (8.4-10.2); Carbon Dioxide 23 mmol/L (22-32); Chloride 103 mmol/L (98-107); Estimated Glomerular Filt Rate > 60 mL/min (>60); Globulin 3.2 g/dL (1.7-4.1); Glucose 119 mg/dL (80-110); HEMOLYSIS < 15 (0-50); Potassium 3.7 mmol/L (3.4-5.1); Sodium 135 mmol/L (137-145); Total Protein 7.1 g/dL (6.3-8.2)
--- NOTE | 2023-05-31 19:22 | ED_ITS ---
HPI - GI Bleed General Chief complaint: GI Bleed Stated complaint: sent by PCP for pain in ABD and black stool Time Seen by Provider: 05/31/23 17:01 Source: patient Mode of arrival: Ambulatory History of Present Illness HPI Narrative: Patient is a 72-year-old male who was sent from his primary doctor's office for evaluation of black-colored stool and some lower abdominal pain. The black colored stools happened 2 times this morning. The abdominal discomfort was sharp and intermittent on the right side of his abdomen. No fevers. No nausea vomiting. No urinary symptoms. He does have a history of reflux disease. Is on a proton pump inhibitor. Had an upper endoscopy and colonoscopy within the past 2 years. He states that he does not remember anything being abnormal with them. He is not on blood thinners. Does take an aspirin. Did recently returned from a cruise. He contacted his primary doctor's office to schedule a follow-up appointment to discuss these symptoms and was told to come to the emergency department. Related Data Home Medications Medication Instructions Recorded Confirmed psyllium husk 3.4 gram/5.4 gram 1 tbsp PO DAILY 03/29/19 04/03/23 oral powder (Metamucil) multivitamin 1 cap PO DAILY 06/21/19 04/03/23 omeprazole 20 mg capsule,delayed 20 mg PO DAILY 10/19/20 04/03/23 release Previous Rx's Medication Instructions Recorded amlodipine 10 mg tablet 10 mg PO DAILY #90 tabs 12/29/22 Allergies Allergy/AdvReac Type Severity Reaction Status Date / Time No Known Drug Allergies Allergy Verified 04/03/23 11:18 Review of Systems Constitutional Constitutional: Reports system reviewed and no additional complaints, except as documented Cardiovascular Cardiovascular: Reports system reviewed and no additional complaints, except as documented Respiratory Respiratory: Reports system reviewed and no additional complaints, except as documented Gastrointestinal Gastrointestinal: Reports system reviewed and no additional complaints, except as documented Integumentary/Breasts Skin/Breast: Reports system reviewed and no additional complaints, except as documented Neurologic Neurologic: Reports system reviewed and no additional complaints, except as documented Hematologic/Lymphatic On Anticoagulants: No Patient History Medical History Chronic right hip pain Acid reflux Essential hypertension Small bowel obstruction Peripheral vascular disease Hernia (1987) Colon polyps (2016) GERD (gastroesophageal reflux disease) Hemorrhoids Mumps Chicken pox Acne (1961) Eczema (1950) Surgical History History of colonoscopy with polypectomy (2016) Anesthesia History of carpal tunnel repair (04/26/17) Status post hernia repair (1997) Family History Brother Age: 79 Crohn's disease without complication, unspecified gastrointestinal tract location Father Alzheimer's dementia without behavioral disturbance, unspecified timing of dementia onset Tobacco use disorder Brother No problems noted. Grandfather No problems noted. Mother Hip fracture Social History household members: significant other Smoking Status: Former smoker alcohol intake: current Smoking Status: Former smoker tobacco type: cigarettes alcohol intake frequency: 0-2 drinks per day Substance Use Type: marijuana Exam Initial Vital Signs Initial Vital Signs: Vital Signs Temperature 97.4 F L 05/31/23 11:36 Pulse Rate 75 05/31/23 11:36 Respiratory Rate 18 05/31/23 11:36 Blood Pressure 127/68 05/31/23 11:36 Pulse Oximetry 98 05/31/23 11:36 Oxygen Delivery Method Room Air 05/31/23 11:36 HENMT Head: normal to inspection and atraumatic Resp Effort & Inspection: normal respiratory effort Auscultation: clear to auscultation bilaterally Cardio Rate: regular rate Rhythm: regular rhythm GI Inspection: normal to inspection and non-distended Palpation: soft, No firm and No tender Back/Spine/Pelvis Back: No CVA tenderness Neuro General: patient alert, patient awake and moves all extremities Extrem General: capillary refill normal Course Orders Ordered: ED Orders 05/31/23 19:22 CT abdomen pelvis w con Stat Discontinued Medications Ondansetron HCl (Ondansetron 4 Mg/2 Ml Inj) 4 mg IV NOW PRN PRN Reason: Nausea And Vomiting Ondansetron HCl (Ondansetron 4 Mg Odt) 4 mg SL NOW PRN PRN Reason: Nausea And Vomiting Pantoprazole Sodium (Pantoprazole 40 Mg Vial) 80 mg IV NOW ONE Stop: 05/31/23 11:42 Last Admin: 05/31/23 21:10 Dose: Not Given Documented By: BS Vital Signs Vital signs: Vital Signs - 8 hr 05/31/23 17:30 05/31/23 17:31 05/31/23 17:31 Pulse Rate 83 81 Respiratory Rate Blood Pressure 175/71 H Pulse Oximetry 99 98 Oxygen Delivery Method Room Air 05/31/23 19:01 05/31/23 19:30 05/31/23 21:11 Pulse Rate 50 L 55 L 56 L Respiratory Rate 18 18 16 Blood Pressure 150/73 H 140/71 143/79 H Pulse Oximetry 98 97 98 Oxygen Delivery Method Room Air Room Air Room Air MDM - GI Bleed Medical Records Attestation: I reviewed the patient's medical records. Lab Data Attestation: I reviewed the patient's lab results. 05/31/23 12:03 05/31/23 12:03 Labs: Lab Results 05/31/23 Range/Units 12:03 WBC 5.1 (4.5-11.0) X10^3/uL RBC 3.92 L (4.5-5.9) X10^6/uL Hgb 12.0 L (13.5-17.5) g/dL Hct 35.0 L (41-53) % MCV 89.3 (80-100) fL MCH 30.6 (26-34) PG MCHC 34.2 (30-36) % RDW 14.8 (11.6-14.8) % Plt Count 161 (150-400) X10^3/uL Neut % (Auto) 45.6 L (50-75) % Lymph % (Auto) 32.4 (25-40) % [place] % (Auto) 16.6 H (3-14) % Eos % (Auto) 4.4 H (2-4) % Baso % (Auto) 1.0 (0-2) % Neut # (Auto) 2300 (5731-2673) /uL Lymph # (Auto) 1700 (7563-3014) /uL [place] # (Auto) 900 (0-900) /uL Eos # (Auto) 200 (0-450) /uL Baso # (Auto) 100 (0-100) /uL PT 11.7 (9.4-12.5) SECONDS INR 1.0 (0.9-1.3) APTT 28 (25.1-36.5) SECONDS Sodium 135 L (137-145) mmol/L Potassium 3.7 (3.4-5.1) mmol/L Chloride 103 (98-107) mmol/L Carbon Dioxide 23 (22-32) mmol/L BUN 13 (9-20) mg/dL Creatinine 0.76 (0.66-1.25) mg/dL Estimated GFR > 60 (>60) mL/min BUN/Creatinine Ratio 17.1 (6-22) Glucose 119 H (80-110) mg/dL Calcium 9.4 (8.4-10.2) mg/dL Total Bilirubin 0.6 (0.2-1.3) mg/dL AST 41 (17-59) IU/L ALT 29 (<50) IU/L Alkaline Phosphatase 83 (38-126) U/L Total Protein 7.1 (6.3-8.2) g/dL Albumin 3.9 (3.5-5.0) g/dL Globulin 3.2 (1.7-4.1) g/dL Albumin/Globulin Ratio 1.2 (1.0-2.8) Blood Type O Positive Antibody Screen Negative Point of Care Testing Stool Occult Blood Negative Urine Dip Bedside Urine Glucose Negative Bedside Urine Bilirubin - Negative Bedside Urine Ketone - Negative Urine Specific Barry 1.030 Bedside Urine Occult Blood - Negative Bedside Urine pH 6.0 Bedside Urine Protein - Negative Bedside Urine Urobilinogen - Negative Bedside Urine Nitrite - Negative Bedside Urine Leukocytes - Negative Esterase Imaging Data CT scan - abdomen/pelvis: Radiologist's Impression: PROCEDURE: CT ABDOMEN PELVIS W CON INDICATIONS: Rectal bleeding TECHNIQUE: After the administration of intravenous contrast, axial sections acquired from the lung bases to the pubic symphysis. Coronal and sagittal reformats were performed. For radiation dose reduction, the following was used: automated exposure control, adjustment of mA and/or kV according to patient size. COMPARISON: None. FINDINGS: Image quality: Excellent. Lung bases: Dependent atelectasis. Linear focal calcification along the right hemidiaphragm (2/10, 4/39). Heart: No significant findings. ABDOMEN: Liver: Focal calcification at the right hepatic dome, may represent Unremarkable. Gallbladder: Cholelithiasis. No CT evidence of acute cholecystitis. Biliary ducts: Unremarkable. Pancreas: Unremarkable. Spleen: Unremarkable. Adrenal Glands: Unremarkable. Kidneys and Ureters: Unremarkable. Stomach and Bowel: Stomach is normal. No small bowel obstruction. Scattered colonic diverticula without evidence of acute diverticulitis. No abnormal bowel wall thickening. Normal appearing appendix. Peritoneum: No abnormal intraperitoneal fluid. No free air. Ventral Wall: No hernias. Abdominal Nodes: No retroperitoneal or mesenteric adenopathy by size criteria. Vessels: Aorta and inferior vena cava are normal in size. PELVIS: Pelvic Organs: Unremarkable. Bladder: Unremarkable. Pelvic Nodes: No enlarged lymph nodes. Miscellaneous: No hernias are seen. Bones: No acute or suspicious osseous abnormality. IMPRESSION: No acute findings in the abdomen or pelvis to explain patient's symptoms. Minimal scattered colonic diverticula without CT evidence of acute diverticulitis. Cholelithiasis. No CT evidence of acute cholecystitis. ECG Data Attestation: I personally reviewed and interpreted this ECG as follows: Interpretation: Sinus rhythm Ventricular rate is 71 Normal axis Normal QRS Normal QTC No ST T wave changes MDM Narrative Medical decision making narrative: Vital signs unremarkable. Not anemic requiring transfusion. Not tachycardic. Not hypotensive. CT scan shows no acute pathology. It is reassuring that he is had an unremarkable colonoscopy within the past 2 years. Does have a history of reflux disease. Is on a proton pump inhibitor. We did discuss the possibility of this being a stomach ulcer and the limitations of CT scans picking up these times diagnoses. There was no indication for admission to indication for is appropriate antibiotics. Will have him contact his primary doctor for follow-up to discuss whether not he should have another colonoscopy or endoscopy. He was given return precautions. He expressed understanding and agreement. Discharge Plan Departure Patient Disposition: Home Clinical Impression: Melena Activity Restrictions/Additional Instructions: I do recommend that you continue with your omeprazole like we discussed. Contact your primary doctor for follow-up. You can also contact the providers who did your prior colonoscopy/endoscopy for follow-up as well. Return to the emergency department for new symptoms. Prescriptions: No Action amlodipine 10 mg tablet 10 mg PO DAILY Qty: 90 1RF Metamucil 3.4 gram/5.4 gram powder 1 tbsp PO DAILY multivitamin Capsule 1 cap PO DAILY omeprazole 20 mg capsule,delayed release(DR/EC) 20 mg PO DAILY Referrals: Eze Carranza MD [Primary Care Provider] - Stand Alone Forms: Patient Portal/API
== END 2023-05-31 21:11 | disposition home or self-care (01) ==
PROVIDERS: Emergency Medicine; Emergency Provider Emergency Medicine; PCP Family Medicine
DX: K92.1 Melena (principal); R10.30 Lower abdominal pain, unspecified; I10 Essential (primary) hypertension; Z87.891 Personal history of nicotine dependence
CPT/HCPCS: 36415; 74177; 80053; 81003; 82272; 85025; 85610; 85730; 86850; 86900; 86901; 93005; 93010; 99284; Q9967

== ENCOUNTER → 2023-06-24 08:54 | Outpatient (CLI) | payer OTHER, SELFPAY ==
[2023-06-24 09:18] LABS: Add Manual Diff / Slide Review NO; Basophils Absolute Auto 100 /uL (0-100); Basophils Percent Auto 1.5 % (0-2); Eosinophils Absolute Auto 400 /uL (0-450); Eosinophils Percent Auto 6.8 % (2-4); Hematocrit 39.2 % (41-53); Hemoglobin 13.2 g/dL (13.5-17.5); Lymphocytes Absolute Auto 2700 /uL (1100-4500); Lymphocytes Percent Auto 44.4 % (25-40); Mean Corpuscular HGB Conc 33.5 % (30-36); Mean Corpuscular Hemoglobin 29.1 PG (26-34); Mean Corpuscular Volume 86.8 fL (80-100); Monocytes Absolute Auto 700 /uL (0-900); Monocytes Percent Auto 12.1 % (3-14); Neutrophils Absolute Auto 2100 /uL (1500-7000); Neutrophils Percent Auto 35.2 % (50-75); Platelet Count 197 X10^3/uL (150-400); Red Blood Cell Count 4.52 X10^6/uL (4.5-5.9); Red Cell Distribution Width 14.2 % (11.6-14.8)
[2023-06-24 09:59] LABS: HEMOLYSIS < 15 (0-50); Iron 51 ug/dL (49-181)
[2023-06-24 10:09] LABS: Alanine Aminotransferase 30 IU/L (<50); Albumin 4.4 g/dL (3.5-5.0); Albumin Globulin Ratio 1.2 (1.0-2.8); Alkaline Phosphatase 81 U/L (38-126); Aspartate Aminotransferase 35 IU/L (17-59); BUN Creatinine Ratio 11.6 (6-22); Bilirubin Total 0.6 mg/dL (0.2-1.3); Blood Urea Nitrogen 10 mg/dL (9-20); Calcium 9.7 mg/dL (8.4-10.2); Carbon Dioxide 25 mmol/L (22-32); Cholesterol 221 mg/dL (140-199); Estimated Glomerular Filt Rate > 60 mL/min (>60); Globulin 3.6 g/dL (1.7-4.1); Glucose 107 mg/dL (80-110); HEMOLYSIS < 15 (0-50); Triglycerides 190 mg/dL (35-150)
[2023-06-24 10:11] LABS: Percent Iron Saturation 13 % (20-50); Total Iron Binding Capacity 385 ug/dL (261-462); Transferrin 324 mg/dL (206-381)
[2023-06-24 10:23] LABS: Chloride 104 mmol/L (98-107); HDL Cholesterol 62 mg/dL (40-60); LDL Cholesterol Calculated 121 mg/dL (<100); Sodium 138 mmol/L (137-145)
[2023-06-24 10:36] LABS: Ferritin 12 ng/mL (18-464)
[2023-06-24 10:47] LABS: Potassium 4.3 mmol/L (3.4-5.1)
[2023-06-26 08:16] LABS: Apolipoprotein B 108 mg/dL (<90)
== END ==
LOC: LAB 08:55
PROVIDERS: PCP Family Medicine; Referring Provider Family Medicine; Visit Provider Family Medicine
DX: E78.5 Hyperlipidemia, unspecified (principal); Z72.89 Other problems related to lifestyle; I10 Essential (primary) hypertension; R73.03 Prediabetes
CPT/HCPCS: 36415; 80053; 80061; 82172; 82728; 83540; 83550; 85025

== ENCOUNTER → 2023-10-26 10:43 | Outpatient (CLI) | payer OTHER, SELFPAY ==
--- NOTE | 2023-10-26 10:44 | DI.RAD.S_ITS ---
PROCEDURE: XR LUMBAR SPINE 2-3V INDICATIONS: LBP TECHNIQUE: 3 views of the lumbar spine were acquired. COMPARISON: [facility], CT, CT ABDOMEN PELVIS W CON, 05/31/2023, 19:27. FINDINGS: Bones: 5 [id number] vertebrae are present. There is normal bony alignment. Small vertebral body osteophytes. Lower lumbar spine facet joint hypertrophy. No vertebral body compression fractures. No suspicious bony lesions. Soft tissues: Overlying bowel gas pattern is normal. No suspicious soft tissue calcifications. IMPRESSION: Mild degenerative changes. Not significantly changed. Dictated by: Cj Covarrubias M.D. on 10/26/2023 at 12:42 Approved by: Cj Covarrubias M.D. on 10/26/2023 at 12:44
[2023-10-26 11:46] LABS: Add Manual Diff / Slide Review NO; Basophils Absolute Auto 0 /uL (0-100); Eosinophils Absolute Auto 300 /uL (0-450); Eosinophils Percent Auto 5.6 % (2-4); Hematocrit 34.9 % (41-53); Hemoglobin 11.6 g/dL (13.5-17.5); Lymphocytes Absolute Auto 1800 /uL (1100-4500); Lymphocytes Percent Auto 34.4 % (25-40); Mean Corpuscular HGB Conc 33.1 % (30-36); Mean Corpuscular Volume 81.5 fL (80-100); Monocytes Absolute Auto 800 /uL (0-900); Neutrophils Absolute Auto 2200 /uL (1500-7000); Platelet Count 208 X10^3/uL (150-400); Red Blood Cell Count 4.28 X10^6/uL (4.5-5.9); Red Cell Distribution Width 15.5 % (11.6-14.8); White Blood Cell Count 5.1 X10^3/uL (4.5-11.0)
[2023-10-26 12:17] LABS: Alanine Aminotransferase 20 IU/L (<50); Albumin 4.7 g/dL (3.5-5.0); Albumin Globulin Ratio 1.4 (1.0-2.8); Alkaline Phosphatase 103 U/L (38-126); Aspartate Aminotransferase 32 IU/L (17-59); BUN Creatinine Ratio 12.6 (6-22); Bilirubin Total 0.4 mg/dL (0.2-1.3); Blood Urea Nitrogen 11 mg/dL (9-20); Calcium 9.1 mg/dL (8.4-10.2); Carbon Dioxide 26 mmol/L (22-32); Chloride 104 mmol/L (98-107); Estimated Glomerular Filt Rate > 60 mL/min (>60); Globulin 3.3 g/dL (1.7-4.1); Glucose 130 mg/dL (80-110); HEMOLYSIS < 15 (0-50); Potassium 4.1 mmol/L (3.4-5.1); Sodium 137 mmol/L (137-145)
[2023-10-26 12:44] LABS: Prostate Specific Antigen Scrn 0.744 ng/mL (0.1-4.0)
[2023-10-26 12:48] LABS: Ferritin 9 ng/mL (18-464)
== END ==
PROVIDERS: PCP Family Medicine; Referring Provider Family Medicine; Visit Provider Family Medicine
DX: Z00.00 Encounter for general adult medical examination without abnormal findings (principal); Z12.5 Encounter for screening for malignant neoplasm of prostate; M47.816 Spondylosis without myelopathy or radiculopathy, lumbar region; J61 Pneumoconiosis due to asbestos and other mineral fibers; D64.9 Anemia, unspecified; J84.10 Pulmonary fibrosis, unspecified; E78.5 Hyperlipidemia, unspecified; I10 Essential (primary) hypertension; K92.1 Melena; R73.03 Prediabetes; R19.7 Diarrhea, unspecified; M54.50 Low back pain, unspecified
CPT/HCPCS: 36415; 72100; 80053; 82728; 85025; G0103

== ENCOUNTER → 2023-11-04 09:39 | Outpatient (CLI) | payer OTHER, SELFPAY ==
[2023-11-09 17:15] LABS: Calprotectin, Stool 82 ug/g (0-120)
[2023-11-10 10:09] LABS: Pancreatic Elastase, Fecal 228 (>200)
== END ==
PROVIDERS: PCP Family Medicine; Referring Provider Family Medicine; Visit Provider Family Medicine
DX: Z00.00 Encounter for general adult medical examination without abnormal findings (principal); J61 Pneumoconiosis due to asbestos and other mineral fibers; J84.10 Pulmonary fibrosis, unspecified; D64.9 Anemia, unspecified; E78.5 Hyperlipidemia, unspecified; I10 Essential (primary) hypertension; K92.1 Melena; R73.03 Prediabetes; R19.7 Diarrhea, unspecified
CPT/HCPCS: 82656; 83993; 87045; 87324

== ENCOUNTER → 2023-11-06 16:48 | Outpatient (CLI) | payer OTHER, SELFPAY ==
--- NOTE | 2023-11-06 16:36 | DI.MRI.S_ITS ---
PROCEDURE: MR LUMBAR SPINE WO CON INDICATIONS: LBP, paresthesias in his lower extremity TECHNIQUE: Noncontrast sagittal T1 spin echo and T2 fast echo, sagittal STIR, and T2 fast spin echo through the lumbar spine. In cases with scoliosis, additional coronal T2 fast spin echo may be performed. COMPARISON: [facility], CR, XR LUMBAR SPINE 2-3V, 10/26/2023, 10:49. FINDINGS: Image quality: Excellent. Alignment and Curvature: There is trace retrolisthesis of L2 on L3, L3 on L4. Bone Marrow: Marrow is of normal overall signal. No acute vertebral body compression fractures. Spinal Cord: Conus medullaris terminates at the L1 level. Visualized cord demonstrates normal signal and size. Paraspinous Soft Tissues: No paravertebral masses. Discs: Wkqi-uo-hmeghpbv disc desiccation most prominent L4-5. T12-L1: Minimal disc bulge without spinal stenosis. Minimal left foraminal narrowing with facet and ligamentum flavum hypertrophy. L1-L2: Minimal disc bulge without spinal stenosis. Mild bilateral foraminal narrowing with facet and ligamentum flavum hypertrophy. L2-L3: Mild disc bulge with gloo-vr-ovzphpsi spinal stenosis. Moderate bilateral foraminal narrowing with facet and ligamentum flavum hypertrophy. L3-L4: Mild disc bulge with hndb-nh-papbyyka spinal stenosis. Gxrl-by-tprlvzvh bilateral foraminal narrowing with facet and ligamentum flavum hypertrophy. Mild epidural lipomatosis. L4-L5: Mild disc bulge with moderate spinal stenosis. Moderate bilateral foraminal narrowing, right greater than left with facet and ligamentum flavum hypertrophy. L5-S1: Mild disc bulge without spinal stenosis. Moderate to severe right and amjl-yi-gdlaoxyp left foraminal narrowing with facet and ligamentum flavum hypertrophy. IMPRESSION: Multilevel disc bulges. Multilevel spinal stenosis most severe at L4-5 secondary to disc bulge with contributing effect of facet/ligamentum flavum arthropathy. Multilevel foraminal narrowing most severe at L5-S1 secondary to facet/ligamentum flavum arthropathy. Dictated by: Tona Menendez M.D. on 11/07/2023 at 9:18 Approved by: Tona Menendez M.D. on 11/07/2023 at 9:35
== END ==
LOC: MRI 16:48
PROVIDERS: PCP Family Medicine; Referring Provider Family Medicine; Visit Provider Family Medicine
DX: M51.36 Other intervertebral disc degeneration, lumbar region (principal); M51.37 Other intervertebral disc degeneration, lumbosacral region; M48.061 Spinal stenosis, lumbar region without neurogenic claudication; M48.07 Spinal stenosis, lumbosacral region; M47.816 Spondylosis without myelopathy or radiculopathy, lumbar region; M47.817 Spondylosis without myelopathy or radiculopathy, lumbosacral region; M54.50 Low back pain, unspecified; R20.2 Paresthesia of skin
CPT/HCPCS: 72148

== ENCOUNTER → 2023-11-14 | Outpatient (CLI) | payer OTHER, SELFPAY ==
--- NOTE | 2023-11-17 20:52 | DI.NM.S_ITS ---
DATE OF SERVICE: 11/14/2023 PROCEDURE: Exercise treadmill stress and rest myocardial perfusion imaging with gating to assess ejection fraction and regional wall motion. ORDERING PROVIDER: Dr. Eze Carranza INDICATIONS: The patient is a 73-year-old obese male with pulmonary fibrosis and exertional dyspnea and fatigue. CARDIAC STRESS: The patient was able to exercise for a total of 4 minutes 14 seconds on a standard Matteo protocol suggesting moderately reduced exercise capacity with an ZORAIDA of +25%, achieving 5.3 METS. He had a normal heart rate and blood pressure response to exercise, achieving a maximum heart rate of 140 bpm (96% of his predicted maximum). His oxygen saturation was 92% at peak exercise. He had no chest discomfort or other anginal symptoms. His resting ECG shows sinus rhythm with occasional PVCs but fairly normal ST segments. With stress, there are no significant ST-segment shifts and his PVCs appear to improve. At 3 minutes of exercise, at a heart rate of 128 BPM, 24.5 millicuries of technetium-99m Myoview was injected and he was imaged 15 minutes later using a gated SPECT acquisition protocol. Three days earlier while at rest, he had been injected with 25.2 millicuries of technetium- 99m Myoview, was imaged 15 minutes later, again using a gated SPECT acquisition protocol. FINDINGS: 1. Raw data. There is marginal tracer uptake with some attenuation artifact noted, likely due to the patient's body habitus. The lung/heart ratio is elevated at 0.57, which could be a sign of pulmonary congestion, but is not visually evident and thus is nonspecific. The TID ratio is normal at 0.80. 2. Quantitated gated SPECT: Post-stress ejection fraction is estimated at 66% without any focal wall motion abnormality and specifically the inferior wall has good contractility. The resting ejection fraction is 69% with moderately increased left ventricular volumes with resting an end-diastolic volume of 150 mL. 3. Myocardial perfusion imaging: Post-stress supine images show a fairly normal myocardial perfusion pattern except for a very subtle inferior defect that completely resolves on the prone images, most consistent with diaphragmatic attenuation artifact. There are no other perfusion defects. The resting images show a fairly similar perfusion pattern, although with slight improvement in the inferior wall. IMPRESSION: 1. Probable normal myocardial perfusion study. 2. Mild, slightly reversible inferior perfusion defect that completely resolves on prone imaging, most consistent with diaphragmatic attenuation artifact. A small volume of mild ischemia in the inferior wall cannot be entirely excluded but is unlikely and still is low risk. 3. Normal left ventricular systolic function without focal wall motion abnormality, although with moderately increased left ventricular volumes. 4. Moderately reduced exercise capacity without angina or ECG evidence of ischemia. He had rare PVCs at rest that resolved with exercise. Oxygen saturation remained at 92% at peak exercise. Fabian Westfall - RS/honey/[employer] doc#: [id number]/job#: [id number] dd: 11/17/2023 13:16:00 dt: 11/17/2023 20:26:00 DICTATING /COPIES TO: William Montano MD; Eze Carranza, NED MNE: ZACHARY;
== END ==
PROVIDERS: PCP Family Medicine; Referring Provider Family Medicine; Visit Provider Family Medicine
DX: R06.09 Other forms of dyspnea (principal); R53.82 Chronic fatigue, unspecified
CPT/HCPCS: 78452; 93017; A9502

== ENCOUNTER → 2023-11-21 13:25 | Outpatient (CLI) | payer OTHER, SELFPAY ==
[2023-11-23 23:10] LABS: C difficie Toxins A and B, EIA Negative (Negative)
== END ==
PROVIDERS: PCP Family Medicine; Referring Provider Family Medicine; Visit Provider Family Medicine
DX: Z00.00 Encounter for general adult medical examination without abnormal findings (principal); J61 Pneumoconiosis due to asbestos and other mineral fibers; J84.10 Pulmonary fibrosis, unspecified; D64.9 Anemia, unspecified; E78.5 Hyperlipidemia, unspecified; I10 Essential (primary) hypertension; K92.1 Melena; R73.03 Prediabetes; R19.7 Diarrhea, unspecified
CPT/HCPCS: 87324

== ENCOUNTER → 2023-11-22 15:45 | Outpatient (CLI) | payer OTHER, SELFPAY ==
[2023-11-22 16:32] LABS: Add Manual Diff / Slide Review NO; Basophils Absolute Auto 0 /uL (0-100); Basophils Percent Auto 0.8 % (0-2); Eosinophils Absolute Auto 200 /uL (0-450); Eosinophils Percent Auto 3.9 % (2-4); Hematocrit 34.6 % (41-53); Hemoglobin 11.5 g/dL (13.5-17.5); Lymphocytes Absolute Auto 2600 /uL (1100-4500); Lymphocytes Percent Auto 41.9 % (25-40); Mean Corpuscular HGB Conc 33.2 % (30-36); Mean Corpuscular Hemoglobin 27.2 PG (26-34); Mean Corpuscular Volume 81.9 fL (80-100); Monocytes Absolute Auto 900 /uL (0-900); Monocytes Percent Auto 14.8 % (3-14); Neutrophils Absolute Auto 2400 /uL (1500-7000); Neutrophils Percent Auto 38.6 % (50-75); Platelet Count 201 X10^3/uL (150-400); Red Blood Cell Count 4.22 X10^6/uL (4.5-5.9); Red Cell Distribution Width 16.1 % (11.6-14.8); White Blood Cell Count 6.2 X10^3/uL (4.5-11.0)
[2023-11-22 16:54] LABS: Hemoglobin A1C% w Est Avg Glu 5.9 % (4.0-6.0)
[2023-11-22 16:57] LABS: HEMOLYSIS < 15 (0-50); Iron 169 ug/dL (49-181)
[2023-11-22 17:03] LABS: Alanine Aminotransferase 25 IU/L (<50); Albumin 4.5 g/dL (3.5-5.0); Albumin Globulin Ratio 1.6 (1.0-2.8); Alkaline Phosphatase 88 U/L (38-126); Aspartate Aminotransferase 42 IU/L (17-59); BUN Creatinine Ratio 16.5 (6-22); Bilirubin Total 0.7 mg/dL (0.2-1.3); Blood Urea Nitrogen 16 mg/dL (9-20); Calcium 9.1 mg/dL (8.4-10.2); Carbon Dioxide 26 mmol/L (22-32); Chloride 103 mmol/L (98-107); Estimated Glomerular Filt Rate > 60 mL/min (>60); Globulin 2.8 g/dL (1.7-4.1); Glucose 124 mg/dL (80-110); HEMOLYSIS < 15 (0-50); Potassium 4.1 mmol/L (3.4-5.1); Sodium 134 mmol/L (137-145); Total Protein 7.3 g/dL (6.3-8.2)
[2023-11-22 17:09] LABS: Percent Iron Saturation 43 % (20-50); Total Iron Binding Capacity 390 ug/dL (261-462); Transferrin 313 mg/dL (206-381)
== END ==
PROVIDERS: PCP Family Medicine; Referring Provider Family Medicine; Visit Provider Family Medicine
DX: D64.9 Anemia, unspecified (principal); R73.03 Prediabetes; I10 Essential (primary) hypertension; R73.9 Hyperglycemia, unspecified; E66.9 Obesity, unspecified
CPT/HCPCS: 36415; 80053; 83036; 83540; 83550; 85025

== ENCOUNTER → 2024-03-14 10:11 | Outpatient (CLI) | payer OTHER, SELFPAY ==
--- NOTE | 2024-03-14 10:12 | DI.ECHO.S_ITS ---
[facility]+ [facility] : : [address] : [place] : : [id number] : : Phone: [phone] Echocardiogram Report + + :Name: DAIN ROLLE Study Date: 03/14/2024 Height: 72 in : :Hospital ReadingLocation: Weight: 230 lb : : Gender: Male BSA: 2.3 m2 : :: 1950 Age: 73 yrs BP: 120/70 mmHg: :Reason For Study: OTHER FORMS OF DYPSNEA : :Ordering Physician: SUBHASH, : :SANDRA Performed By: Alok Manuel : :Referring: SANDRA CULLEN : + + Interpretation Summary Left ventricular wall thickness is mildly increased. The ejection fraction is estimated to be 50-55%. Diastolic function could not be accurately assessed due to contradictory data. The left atrium is mildly dilated. The right ventricle is normal in size and function. No significant valvular abnormalities. Pulmonary artery pressures cannot be estimated because of the lack of a measurable TR jet velocity but the IVC suggests a CVP of around 3 mmHg. The ascending aorta is mildly enlarged, 4.1 cm. Procedure: A two-dimensional transthoracic echocardiogram with color flow and Doppler was performed. The study quality was technically good. There is no prior echocardiogram noted for this patient. The patient was in normal sinus rhythm during the exam. Left Ventricle: The left ventricle is normal in size. Left ventricular wall thickness is mildly increased. There is no ventricular septal defect visualized. The ejection fraction is estimated to be 50-55%. There are no focal wall motion abnormalities. Diastolic function could not be accurately assessed due to contradictory data. Right Ventricle: The right ventricle is normal in size and function. Atria: The left atrium is mildly dilated. Right atrial size is normal. There is no Doppler evidence for an atrial septal defect. Mitral Valve: The mitral valve is normal in structure and function. There is trace mitral regurgitation. Aortic Valve: The aortic valve is trileaflet. The aortic valve opens well. The aortic valve is mildly calcified. There is no aortic valve stenosis. No aortic regurgitation is present. Tricuspid Valve: The tricuspid valve is normal in structure and function. There is trace tricuspid regurgitation. Pulmonary artery pressures cannot be estimated because of the lack of a measurable TR jet velocity but the IVC suggests a CVP of around 3 mmHg. Pulmonic Valve: The pulmonic valve is normal in structure and function. There is trace pulmonic regurgitation. Great Vessels: The aortic root is mildly dilated. The ascending aorta is mildly enlarged. The pulmonary artery is normal size. The IVC is of normal diameter and collapses greater than 50% with a sniff. This suggests a low right atrial pressure of 3 mm Hg. Pericardium/ Pleura There is no pericardial effusion. There is no pleural effusion. MMode/2D Measurements & Calculations LVIDd: 4.8 cm LVOT diam: 2.3 cm LVIDs: 3.0 cm Ao root diam: 4.0 cm FS: 38.1 % asc Aorta Diam: 4.1 cm EPSS: 0.89 cm Ao Arch Diam (Prox Trans): 2.4 cm IVSd: 1.1 cm LVPWd: 1.1 cm LV davis. diameter/BSA (cm/m^2): 2.1 LV sys. diameter/BSA (cm/m^2): 1.3 LA A2 area: 26.2 cm2 RA long axis: 5.2 cm LA A4 area: 27.9 cm2 RA area: 14.3 cm2 LA length (vol): 6.9 cm RA vol: 33.5 ml LA vol: 89.6 ml RA : 14.8 ml/m2 LA vol index: 39.6 ml/m2 IVC diam: 1.8 cm RVD1 (basal): 3.7 cm RVD2 (mid): 2.9 cm TAPSE: 2.4 cm Doppler Measurements & Calculations Ao V2 max: 112.8 cm/sec LVOT Max Pancho: 74.2 cm/sec Ao V2 mean: 79.9 cm/sec LV V1 max P.2 mmHg Ao max P.1 mmHg LV V1 VTI: 19.0 cm Ao mean P.8 mmHg BALJINDER(I,D): 3.1 cm2 Ao V2 VTI: 26.5 cm BALJINDER(V,D): 2.8 cm2 sev ratio: 0.72 BALJINDER indexed to BSA (cm^2/m^2): 1.4 MV E max pancho: 53.1 cm/sec TR max pancho: 198.2 cm/sec MV A max pancho: 78.6 cm/sec TR max P.7 mmHg MV E/A: 0.68 PA V2 max: 65.0 cm/sec Med Peak E' Pancho: 5.5 cm/sec PA V2 mean: 48.1 cm/sec E/E' med: 9.6 PA mean P.0 mmHg Lat Peak E' Pancho: 5.8 cm/sec PA pr(Accel): 36.2 mmHg E/E' lat: 9.2 E/e' average: 9.4 MV dec time: 0.35 sec SV(LVOT): 81.6 ml Reading Physician:12:55 PM
== END ==
PROVIDERS: PCP Family Medicine; Referring Provider Family Medicine; Visit Provider Family Medicine
DX: I77.810 Thoracic aortic ectasia (principal); I77.89 Other specified disorders of arteries and arterioles; R06.09 Other forms of dyspnea; R53.82 Chronic fatigue, unspecified
CPT/HCPCS: 93306

== ENCOUNTER → 2024-04-23 09:49 | Outpatient (CLI) | payer OTHER, SELFPAY ==
[2024-04-23 11:17] LABS: Add Manual Diff / Slide Review NO; Basophils Absolute Auto 0 /uL (0-100); Basophils Percent Auto 0.7 % (0-2); Eosinophils Absolute Auto 400 /uL (0-450); Eosinophils Percent Auto 5.7 % (2-4); Hematocrit 43.3 % (41-53); Hemoglobin 14.8 g/dL (13.5-17.5); Lymphocytes Absolute Auto 2200 /uL (1100-4500); Lymphocytes Percent Auto 33.4 % (25-40); Mean Corpuscular HGB Conc 34.2 % (30-36); Mean Corpuscular Hemoglobin 30.9 PG (26-34); Mean Corpuscular Volume 90.3 fL (80-100); Monocytes Absolute Auto 800 /uL (0-900); Monocytes Percent Auto 12.7 % (3-14); Neutrophils Absolute Auto 3200 /uL (1500-7000); Neutrophils Percent Auto 47.5 % (50-75); Platelet Count 220 X10^3/uL (150-400); Red Cell Distribution Width 13.7 % (11.6-14.8); White Blood Cell Count 6.6 X10^3/uL (4.5-11.0)
[2024-04-23 11:42] LABS: Alanine Aminotransferase 15 IU/L (<50); Albumin 4.3 g/dL (3.5-5.0); Albumin Globulin Ratio 1.3 (1.0-2.8); Alkaline Phosphatase 67 U/L (38-126); Aspartate Aminotransferase 24 IU/L (17-59); BUN Creatinine Ratio 14.4 (6-22); Bilirubin Total 0.6 mg/dL (0.2-1.3); Blood Urea Nitrogen 15 mg/dL (9-20); Calcium 10.1 mg/dL (8.4-10.2); Carbon Dioxide 27 mmol/L (22-32); Chloride 102 mmol/L (98-107); Cholesterol 194 mg/dL (140-199); Estimated Glomerular Filt Rate > 60 mL/min (>60); Globulin 3.3 g/dL (1.7-4.1); Glucose 105 mg/dL (80-110); HDL Cholesterol 52 mg/dL (40-60); HEMOLYSIS < 15 (0-50); Iron 96 ug/dL (49-181); LDL Cholesterol Calculated 114 mg/dL (<100); Sodium 136 mmol/L (137-145); Total Protein 7.6 g/dL (6.3-8.2); Triglycerides 142 mg/dL (35-150)
[2024-04-23 11:53] LABS: Percent Iron Saturation 29 % (20-50); Total Iron Binding Capacity 332 ug/dL (261-462); Transferrin 281 mg/dL (206-381)
[2024-04-23 12:14] LABS: Ferritin 25 ng/mL (18-464)
== END ==
PROVIDERS: PCP Family Medicine; Referring Provider Family Medicine; Visit Provider Family Medicine
DX: R73.03 Prediabetes (principal); D64.9 Anemia, unspecified; J84.10 Pulmonary fibrosis, unspecified; I83.93 Asymptomatic varicose veins of bilateral lower extremities; R73.9 Hyperglycemia, unspecified; I10 Essential (primary) hypertension; E66.9 Obesity, unspecified; Z68.30 Body mass index [BMI] 30.0-30.9, adult
CPT/HCPCS: 36415; 80053; 80061; 82728; 83540; 83550; 85025

== ENCOUNTER → 2024-11-25 07:21 | Outpatient (CLI) | payer MEDICARE, SELFPAY ==
[2024-11-25 07:57] LABS: Add Manual Diff / Slide Review NO; Basophils Absolute Auto 0 /uL (0-100); Eosinophils Absolute Auto 300 /uL (0-450); Eosinophils Percent Auto 6.6 % (2-4); Hematocrit 39.8 % (41-53); Hemoglobin 13.7 g/dL (13.5-17.5); Lymphocytes Absolute Auto 2300 /uL (1100-4500); Lymphocytes Percent Auto 48.9 % (25-40); Mean Corpuscular HGB Conc 34.4 % (30-36); Mean Corpuscular Hemoglobin 32.2 PG (26-34); Mean Corpuscular Volume 93.7 fL (80-100); Monocytes Absolute Auto 600 /uL (0-900); Monocytes Percent Auto 13.4 % (3-14); Neutrophils Absolute Auto 1400 /uL (1500-7000); Neutrophils Percent Auto 30.1 % (50-75); Platelet Count 169 X10^3/uL (150-400); Red Blood Cell Count 4.25 X10^6/uL (4.5-5.9); Red Cell Distribution Width 12.9 % (11.6-14.8); White Blood Cell Count 4.8 X10^3/uL (4.5-11.0)
[2024-11-25 08:14] LABS: Alanine Aminotransferase 20 IU/L (<50); Albumin 4.3 g/dL (3.5-5.0); Albumin Globulin Ratio 1.7 (1.0-2.8); Alkaline Phosphatase 78 U/L (38-126); Aspartate Aminotransferase 30 IU/L (17-59); BUN Creatinine Ratio 23.7 (6-22); Bilirubin Total 0.8 mg/dL (0.2-1.3); Blood Urea Nitrogen 23 mg/dL (9-20); Calcium 9.7 mg/dL (8.4-10.2); Carbon Dioxide 23 mmol/L (22-32); Chloride 107 mmol/L (98-107); Cholesterol 247 mg/dL (140-199); Estimated Glomerular Filt Rate > 60 mL/min (>60); Globulin 2.5 g/dL (1.7-4.1); Glucose 113 mg/dL (70-99); HDL Cholesterol 73 mg/dL (40-60); HEMOLYSIS < 15 (0-50); LDL Cholesterol Calculated 147 mg/dL (<100); Potassium 4.6 mmol/L (3.4-5.1); Sodium 140 mmol/L (137-145); Total Protein 6.8 g/dL (6.3-8.2); Triglycerides 133 mg/dL (35-150)
[2024-11-25 08:40] LABS: TSH w/ Reflex to FT4 1.99 uIU/mL (0.47-4.68)
[2024-11-25 08:43] LABS: Prostate Specific Antigen Scrn 0.308 ng/mL (0.1-4.0)
[2024-11-26 05:14] LABS: Apolipoprotein B 115 mg/dL (<90)
[2024-11-26 10:51] LABS: Creatinine Urine Random 77.19 mg/dL
[2024-11-26 11:02] LABS: Microalbumin Urine Random < 0.6 mg/dL (0-1.6)
== END ==
PROVIDERS: PCP Family Medicine; Referring Provider Family Medicine; Visit Provider Family Medicine
DX: Z12.5 Encounter for screening for malignant neoplasm of prostate (principal); J01.00 Acute maxillary sinusitis, unspecified; I10 Essential (primary) hypertension; R73.9 Hyperglycemia, unspecified; J06.9 Acute upper respiratory infection, unspecified
CPT/HCPCS: 36415; 80053; 80061; 82043; 82172; 82570; 84443; 85025; G0103

== ENCOUNTER 2025-04-14 06:09 | Inpatient (IN) | payer MEDICARE, SELFPAY ==
[2025-04-14] VITALS (12 sets, daily range): BP systolic 169–207; BP diastolic 79–110; PULSE 68–89; RESP 12–21; TEMP 34.6–37.1; O2SAT 92–98; BMI 31.8; BMI 33.6
--- NOTE | 2025-04-14 06:19 | EKG_ITS ---
[address] [address] Test Date: 2025-04-14 Pat Name: Fabian Westfall Department: Room: Gender: Male Manager Psychiatry: LEAH ETHEL : 1950 Requested By: Order Number: [id number] Reading MD: Wilfred Timmons Measurements Intervals [place] Rate: 70 P: 57 ND: 184 QRS: 54 QRSD: 84 T: 39 QT: 402 QTc: 434 Interpretive Statements Sinus rhythm with occasional premature ventricular complexes Septal infarct , age undetermined Electronically Signed On 04-14-2025 14:47:25 PDT by Wilfred Timmons
[2025-04-14] MEDS: ONDANSETRON 4 MG/2 ML INJ IV (06:25)
--- NOTE | 2025-04-14 06:28 | ED_ITS ---
HPI - Abdominal Pain <Abdirahman Stubbs MD - Last Filed: 04/16/25 06:38> General Chief Complaint: Abdominal Pain Stated Complaint: Abdominal Pain Time Seen by Provider: 04/14/25 06:23 Source: patient Mode of arrival: Ambulatory History of Present Illness HPI narrative: 74-year-old male with no prior medical history presents with mid abdominal pain that started around 11 last yesterday evening and is progressively getting worse. She has some nausea and 1 case of vomiting along with it. He denies any other symptoms. He claims to have had a similar episode approximately 5 years ago that sounds like a small bowel obstruction. Related Data Home Medications ?Medication ?Instructions ?Recorded ?Confirmed omeprazole 20 mg capsule,delayed 20 mg PO DAILY 04/14/25 release naproxen sodium 220 mg tablet 440 mg PO DAILY PRN pain 04/14/25 04/14/25 (Aleve) Previous Rx's ?Medication ?Instructions ?Recorded tirzepatide (weight loss) 5 mg/0.5 5 mg (0.5 mL) SUBCU T QWEEK #2 mL 12/19/24 mL subcutaneous solution (Zepbound) tirzepatide (weight loss) 7.5 7.5 mg (0.5 mL) SUBCUT Q WEEK #2 mL 12/26/24 mg/0.5 mL subcutaneous solution (Zepbound) Allergies Allergy/AdvReac Type Severity Reaction Status Date / Time No Known Drug Allergies Allergy Verified 04/14/25 06:19 <Jatinder Mackey MD - Last Filed: 04/14/25 15:34> History of Present Illness HPI narrative: 74-year-old male with no prior medical history presents with mid abdominal pain that started around 11 last yesterday evening and is progressively getting worse. She has some nausea and 1 case of vomiting along with it. He denies any other symptoms. He claims to have had a similar episode approximately 5 years ago that sounds like a small bowel obstruction. I assumed his care at 7:00 a.m. shift change. Verified history as above. No fevers. Previous left inguinal hernia repair. No urinary symptoms. No chest pain or shortness of breath. Did not require surgery for his previous bowel obstruction, pain was improved with initial treatment in the emergency department. States he had a bowel movement earlier this morning, has not been passing gas since. Review of Systems <Abdirahman Stubbs MD - Last Filed: 04/16/25 06:38> Review of Systems ROS Unobtainable: All systems reviewed & are unremarkable except as noted in HPI and below Patient History <Abdirahman Stubbs MD - Last Filed: 04/16/25 06:38> Medical History (Updated 04/15/25 @ 07:01 by Marquis Mendoza MD) Small bowel obstruction History of melena Chronic right hip pain Acid reflux Essential hypertension Peripheral vascular disease Hernia (1987) Colon polyps (2016) GERD (gastroesophageal reflux disease) Hemorrhoids Mumps Chicken pox Acne (1961) Eczema (1950) Surgical History (Updated 04/14/25 @ 19:11 by Harish Timmons MD) H/O vein stripping History of colonoscopy with polypectomy (2016) Anesthesia History of carpal tunnel repair (04/26/17) Status post hernia repair (1997) Family History Brother Age: 81 Crohn's disease without complication, unspecified gastrointestinal tract location Father Alzheimer's dementia without behavioral disturbance, unspecified timing of dementia onset Tobacco use disorder Brother No problems noted. Grandfather No problems noted. Mother Hip fracture Social History household members: significant other Smoking Status: Former smoker alcohol intake: current Smoking Status: Former smoker tobacco type: cigarettes alcohol intake frequency: 0-2 drinks per day Exam <Abdirahman Stubbs MD - Last Filed: 04/16/25 06:38> Narrative Exam Narrative: General: Patient appears to be in mild distress Head: normocephalic, atraumatic, HEENT: Pupils equal round reactive, eyes tracking well, neck supple, no JVD Heart: regular rate and rhythm, no murmurs, rubs, or gallops heard Lungs: clear to auscultation, no adventitious sounds Abdomen: soft , tenderness to palpation in mid abdominal area, no rebound, no guarding, decreased bowel sounds Neurological: no focal neurological signs, moving all extremities well, alert and oriented x3, Psych: good judgment ,good insight, mood is normal. Initial Vital Signs Initial Vital Signs: Vital Signs Temperature 94.3 F L 04/14/25 06:19 Pulse Rate 83 04/14/25 06:19 Respiratory Rate 17 04/14/25 06:19 Blood Pressure 207/110 H 04/14/25 06:19 Pulse Oximetry 97 04/14/25 06:19 Oxygen Delivery Method Room Air 04/14/25 06:19 <Jatinder Mackey MD - Last Filed: 04/14/25 15:34> Initial Vital Signs Initial Vital Signs: Vital Signs Temperature 94.3 F L 04/14/25 06:19 Pulse Rate 83 04/14/25 06:19 Respiratory Rate 17 04/14/25 06:19 Blood Pressure 207/110 H 04/14/25 06:19 Pulse Oximetry 97 04/14/25 06:19 Oxygen Delivery Method Room Air 04/14/25 06:19 Course <Abdirahman Stubbs MD - Last Filed: 04/16/25 06:38> Orders Ordered: Enoxaparin Sodium (Enoxaparin 40 Mg/0.4 Ml Syringe) 40 mg SUBCUT DAILY [facility] Last Admin: 04/15/25 08:12 Dose: Not Given Documented By: NELLY Hydromorphone HCl (Hydromorphone Hcl 0.5 Mg/0.5 Ml Syringe) 0.5 mg IV Q2H PRN PRN Reason: Pain, Severe (7-10) Last Admin: 04/15/25 20:09 Dose: 0.5 mg Documented By: Admin: 04/15/25 15:50 Dose: 0.5 mg Documented By: Admin: 04/15/25 03:22 Dose: 0.5 mg Documented By: Admin: 04/14/25 22:40 Dose: 0.5 mg Documented By: Admin: 04/14/25 12:55 Dose: 0.5 mg Documented By: KAUSHAL Sodium Chloride (Normal Saline 0.9%) 1,000 mls @ 125 mls/hr IV CONT [facility] Last Admin: 04/16/25 01:25 Dose: 125 mls/hr Documented By: Infusion: 04/16/25 01:25 Dose: Infused Documented By: Admin: 04/15/25 17:30 Dose: 125 mls/hr Documented By: Infusion: 04/15/25 17:28 Dose: Infused Documented By: Admin: 04/15/25 08:16 Dose: 125 mls/hr Documented By: Infusion: 04/15/25 06:13 Dose: Infused Documented By: Admin: 04/14/25 22:13 Dose: 125 mls/hr Documented By: Infusion: 04/14/25 20:50 Dose: Infused Documented By: Admin: 04/14/25 12:50 Dose: 125 mls/hr Documented By: KAUSHAL Ceftriaxone Sodium 2,000 mg/ (Sodium Chloride) 100 mls @ 200 mls/hr IV Q24H [facility] Last Infusion: 04/15/25 17:28 Dose: Infused Documented By: Admin: 04/15/25 15:50 Dose: 200 mls/hr Documented By: Infusion: 04/14/25 16:48 Dose: Infused Documented By: Admin: 04/14/25 15:37 Dose: 200 mls/hr Documented By: NELLY Metronidazole (Flagyl) 500 mg in 100 mls @ 100 mls/hr IV Q6H [facility] Last Infusion: 04/16/25 02:24 Dose: Infused Documented By: Admin: 04/16/25 01:24 Dose: 100 mls/hr Documented By: Infusion: 04/15/25 21:08 Dose: Infused Documented By: Admin: 04/15/25 20:08 Dose: 100 mls/hr Documented By: Infusion: 04/15/25 18:42 Dose: Infused Documented By: Admin: 04/15/25 17:29 Dose: 100 mls/hr Documented By: Infusion: 04/15/25 12:59 Dose: Infused Documented By: Admin: 04/15/25 08:16 Dose: 100 mls/hr Documented By: Infusion: 04/15/25 04:20 Dose: Infused Documented By: Admin: 04/15/25 03:20 Dose: 100 mls/hr Documented By: Infusion: 04/14/25 21:50 Dose: Infused Documented By: Admin: 04/14/25 20:50 Dose: 100 mls/hr Documented By: Infusion: 04/14/25 17:59 Dose: Infused Documented By: Admin: 04/14/25 16:50 Dose: 100 mls/hr Documented By: NELLY Naloxone HCl (Naloxone 0.4 Mg/Ml Vial) 0.2 mg IV Q2MIN PRN PRN Reason: Opiate Reversal Ondansetron HCl (Ondansetron 4 Mg/2 Ml Inj) 4 mg IV NOW PRN PRN Reason: Nausea And Vomiting Last Admin: 04/14/25 06:25 Dose: 4 mg Documented By: TRUONG Ondansetron HCl (Ondansetron 4 Mg Odt) 4 mg PO NOW PRN PRN Reason: Nausea And Vomiting Ondansetron HCl (Ondansetron 4 Mg/2 Ml Inj) 4 mg IV Q8HR PRN PRN Reason: Nausea And Vomiting Pantoprazole Sodium (Pantoprazole Dr 20 Mg Tablet) 20 mg PO 0600 [facility] Discontinued Medications Bupivacaine HCl/Epinephrine Bitart (Bupivacaine 0.25% W/ Epi (Pf) 30 Ml Vial) 60 ml INJ NOW ONE Stop: 04/15/25 12:16 Last Admin: 04/15/25 12:05 Dose: 60 ml Documented By: EVANGELISTA Hydromorphone HCl (Hydromorphone 1 Mg/Ml Syringe) 0 mg IV Q5MIN PRN PRN Reason: Pain, Moderate (4-6) Hydromorphone HCl (Hydromorphone 1 Mg/Ml Syringe) 0 mg IV Q5MIN PRN PRN Reason: Pain, Mild (1-3) Hydromorphone HCl (Hydromorphone 1 Mg/Ml Syringe) 0 mg IV Q5MIN PRN PRN Reason: Pain, Severe (7-10) Sodium Chloride (Normal Saline 0.9%) 1,000 mls @ 1,000 mls/hr IV BOLUS ONE Stop: 04/14/25 08:16 Last Infusion: 04/14/25 11:22 Dose: Infused Documented By: Admin: 04/14/25 07:21 Dose: 1,000 mls/hr Documented By: EB Lactated Ringer's (Lactated Ringers) 1,000 mls @ 42 mls/hr IV CONT [facility] Last Infusion: 04/15/25 15:56 Dose: Infused Documented By: Infusion: 04/15/25 13:00 Dose: 0 mls/hr Documented By: Admin: 04/15/25 11:00 Dose: 42 mls/hr Documented By: TP Acetaminophen (Ofirmev) 1,000 mg in 100 mls @ 400 mls/hr IV NOW ONE Stop: 04/15/25 12:31 Last Infusion: 04/15/25 12:10 Dose: Infused Documented By: Admin: 04/15/25 12:05 Dose: 400 mls/hr Documented By: RYLEY Iopamidol (Iopamidol 30 Ml Vial) 30 ml INJ NOW ONE Stop: 04/15/25 12:29 Last Admin: 04/15/25 12:28 Dose: 30 ml Documented By: EVANGELISTA Morphine Sulfate (Morphine 2 Mg/Ml Inj) 2 mg IV NOW ONE Stop: 04/14/25 06:29 Last Admin: 04/14/25 06:36 Dose: Not Given Documented By: TRUONG Morphine Sulfate (Morphine 4 Mg/Ml Inj) 4 mg IV NOW ONE Stop: 04/14/25 06:33 Last Admin: 04/14/25 06:35 Dose: 4 mg Documented By: TRUONG Ondansetron HCl (Ondansetron 4 Mg/2 Ml Inj) 4 mg IV NOW PRN PRN Reason: Nausea And Vomiting Vital Signs Vital signs: Vital Signs - 8 hr 04/14/25 06:19 04/14/25 06:21 04/14/25 06:30 Temperature 94.3 F L Pulse Rate 83 74 75 Respiratory Rate 17 12 Blood Pressure 207/110 H Pulse Oximetry 97 95 98 Oxygen Delivery Method Room Air 04/14/25 06:30 04/14/25 06:59 04/14/25 06:59 Temperature Pulse Rate 82 Respiratory Rate 19 Blood Pressure 200/80 H 176/84 H Pulse Oximetry 96 Oxygen Delivery Method 04/14/25 07:00 04/14/25 07:00 Temperature Pulse Rate 83 Respiratory Rate 21 Blood Pressure 169/79 H Pulse Oximetry 98 Oxygen Delivery Method <Jatinder Mackey MD - Last Filed: 04/14/25 15:34> Orders Ordered: Enoxaparin Sodium (Enoxaparin 40 Mg/0.4 Ml Syringe) 40 mg SUBCUT DAILY [facility] Last Admin: 04/15/25 08:12 Dose: Not Given Documented By: NELLY Hydromorphone HCl (Hydromorphone Hcl 0.5 Mg/0.5 Ml Syringe) 0.5 mg IV Q2H PRN PRN Reason: Pain, Severe (7-10) Last Admin: 04/15/25 20:09 Dose: 0.5 mg Documented By: Admin: 04/15/25 15:50 Dose: 0.5 mg Documented By: Admin: 04/15/25 03:22 Dose: 0.5 mg Documented By: Admin: 04/14/25 22:40 Dose: 0.5 mg Documented By: Admin: 04/14/25 12:55 Dose: 0.5 mg Documented By: KAUSHAL Sodium Chloride (Normal Saline 0.9%) 1,000 mls @ 125 mls/hr IV CONT [facility] Last Admin: 04/16/25 01:25 Dose: 125 mls/hr Documented By: Infusion: 04/16/25 01:25 Dose: Infused Documented By: Admin: 04/15/25 17:30 Dose: 125 mls/hr Documented By: Infusion: 04/15/25 17:28 Dose: Infused Documented By: Admin: 04/15/25 08:16 Dose: 125 mls/hr Documented By: Infusion: 04/15/25 06:13 Dose: Infused Documented By: Admin: 04/14/25 22:13 Dose: 125 mls/hr Documented By: Infusion: 04/14/25 20:50 Dose: Infused Documented By: Admin: 04/14/25 12:50 Dose: 125 mls/hr Documented By: KAUSHAL Ceftriaxone Sodium 2,000 mg/ (Sodium Chloride) 100 mls @ 200 mls/hr IV Q24H [facility] Last Infusion: 04/15/25 17:28 Dose: Infused Documented By: Admin: 04/15/25 15:50 Dose: 200 mls/hr Documented By: Infusion: 04/14/25 16:48 Dose: Infused Documented By: Admin: 04/14/25 15:37 Dose: 200 mls/hr Documented By: NELLY Metronidazole (Flagyl) 500 mg in 100 mls @ 100 mls/hr IV Q6H [facility] Last Infusion: 04/16/25 02:24 Dose: Infused Documented By: Admin: 04/16/25 01:24 Dose: 100 mls/hr Documented By: Infusion: 04/15/25 21:08 Dose: Infused Documented By: Admin: 04/15/25 20:08 Dose: 100 mls/hr Documented By: Infusion: 04/15/25 18:42 Dose: Infused Documented By: Admin: 04/15/25 17:29 Dose: 100 mls/hr Documented By: Infusion: 04/15/25 12:59 Dose: Infused Documented By: Admin: 04/15/25 08:16 Dose: 100 mls/hr Documented By: Infusion: 04/15/25 04:20 Dose: Infused Documented By: Admin: 04/15/25 03:20 Dose: 100 mls/hr Documented By: Infusion: 04/14/25 21:50 Dose: Infused Documented By: Admin: 04/14/25 20:50 Dose: 100 mls/hr Documented By: Infusion: 04/14/25 17:59 Dose: Infused Documented By: Admin: 04/14/25 16:50 Dose: 100 mls/hr Documented By: NELLY Naloxone HCl (Naloxone 0.4 Mg/Ml Vial) 0.2 mg IV Q2MIN PRN PRN Reason: Opiate Reversal Ondansetron HCl (Ondansetron 4 Mg/2 Ml Inj) 4 mg IV NOW PRN PRN Reason: Nausea And Vomiting Last Admin: 04/14/25 06:25 Dose: 4 mg Documented By: TRUONG Ondansetron HCl (Ondansetron 4 Mg Odt) 4 mg PO NOW PRN PRN Reason: Nausea And Vomiting Ondansetron HCl (Ondansetron 4 Mg/2 Ml Inj) 4 mg IV Q8HR PRN PRN Reason: Nausea And Vomiting Pantoprazole Sodium (Pantoprazole Dr 20 Mg Tablet) 20 mg PO 0600 [facility] Discontinued Medications Bupivacaine HCl/Epinephrine Bitart (Bupivacaine 0.25% W/ Epi (Pf) 30 Ml Vial) 60 ml INJ NOW ONE Stop: 04/15/25 12:16 Last Admin: 04/15/25 12:05 Dose: 60 ml Documented By: EVANGELISTA Hydromorphone HCl (Hydromorphone 1 Mg/Ml Syringe) 0 mg IV Q5MIN PRN PRN Reason: Pain, Moderate (4-6) Hydromorphone HCl (Hydromorphone 1 Mg/Ml Syringe) 0 mg IV Q5MIN PRN PRN Reason: Pain, Mild (1-3) Hydromorphone HCl (Hydromorphone 1 Mg/Ml Syringe) 0 mg IV Q5MIN PRN PRN Reason: Pain, Severe (7-10) Sodium Chloride (Normal Saline 0.9%) 1,000 mls @ 1,000 mls/hr IV BOLUS ONE Stop: 04/14/25 08:16 Last Infusion: 04/14/25 11:22 Dose: Infused Documented By: Admin: 04/14/25 07:21 Dose: 1,000 mls/hr Documented By: EB Lactated Ringer's (Lactated Ringers) 1,000 mls @ 42 mls/hr IV CONT [facility] Last Infusion: 04/15/25 15:56 Dose: Infused Documented By: Infusion: 04/15/25 13:00 Dose: 0 mls/hr Documented By: Admin: 04/15/25 11:00 Dose: 42 mls/hr Documented By: TP Acetaminophen (Ofirmev) 1,000 mg in 100 mls @ 400 mls/hr IV NOW ONE Stop: 04/15/25 12:31 Last Infusion: 04/15/25 12:10 Dose: Infused Documented By: Admin: 04/15/25 12:05 Dose: 400 mls/hr Documented By: RC Iopamidol (Iopamidol 30 Ml Vial) 30 ml INJ NOW ONE Stop: 04/15/25 12:29 Last Admin: 04/15/25 12:28 Dose: 30 ml Documented By: BW Morphine Sulfate (Morphine 2 Mg/Ml Inj) 2 mg IV NOW ONE Stop: 04/14/25 06:29 Last Admin: 04/14/25 06:36 Dose: Not Given Documented By: LS Morphine Sulfate (Morphine 4 Mg/Ml Inj) 4 mg IV NOW ONE Stop: 04/14/25 06:33 Last Admin: 04/14/25 06:35 Dose: 4 mg Documented By: LS Ondansetron HCl (Ondansetron 4 Mg/2 Ml Inj) 4 mg IV NOW PRN PRN Reason: Nausea And Vomiting Reevaluation(s) Reevaluation #1: About 7:15 a.m., patient is reexamined. He is in no distress reports it as pain is improved and he is not nauseated presently. Abdomen is mildly distended bowel sounds are diminished abdomen is soft without focal tenderness. Normal respiratory effort normal heart rate. Hypertension was improved. Consultations Consultation #1: Case was discussed with , general surgery who will consult. Requested met by Medicine. Consultation #2: Case discussed with the hospitalist, Dr. Timmons who will admit. Vital Signs Vital signs: Vital Signs - 8 hr 04/14/25 06:19 04/14/25 06:21 04/14/25 06:30 Temperature 94.3 F L Pulse Rate 83 74 75 Respiratory Rate 17 12 Blood Pressure 207/110 H Pulse Oximetry 97 95 98 Oxygen Delivery Method Room Air 04/14/25 06:30 04/14/25 06:59 04/14/25 06:59 Temperature Pulse Rate 82 Respiratory Rate 19 Blood Pressure 200/80 H 176/84 H Pulse Oximetry 96 Oxygen Delivery Method 04/14/25 07:00 04/14/25 07:00 Temperature Pulse Rate 83 Respiratory Rate 21 Blood Pressure 169/79 H Pulse Oximetry 98 Oxygen Delivery Method MDM - Abdominal Pain <Abdirahman Stubbs MD - Last Filed: 04/16/25 06:38> Lab Data 04/15/25 04:35 04/15/25 04:35 Labs: Lab Results 04/14/25 Range/Units 06:23 WBC 16.6 H (4.5-11.0) X10^3/uL RBC 4.95 (4.5-5.9) X10^6/uL Hgb 15.9 (13.5-17.5) g/dL Hct 46.0 (41-53) % MCV 92.9 (80-100) fL MCH 32.1 (26-34) PG MCHC 34.6 (30-36) % RDW 13.3 (11.6-14.8) % Plt Count 210 (150-400) X10^3/uL Neut % (Auto) 71.2 (50-75) % Lymph % (Auto) 18.0 L (25-40) % [place] % (Auto) 8.7 (3-14) % Eos % (Auto) 1.8 L (2-4) % Baso % (Auto) 0.3 (0-2) % Neut # (Auto) 62305 H (8891-2877) /uL Lymph # (Auto) 3000 (2179-2555) /uL [place] # (Auto) 1400 H (0-900) /uL Eos # (Auto) 300 (0-450) /uL Baso # (Auto) 100 (0-100) /uL Sodium 137 (137-145) mmol/L Potassium 3.8 (3.4-5.1) mmol/L Chloride 102 (98-107) mmol/L Carbon Dioxide 22 (22-32) mmol/L BUN 16 (9-20) mg/dL Creatinine 1.00 (0.66-1.25) mg/dL Estimated GFR > 60 (>60) mL/min BUN/Creatinine Ratio 16.0 (6-22) Glucose 204 H (70-99) mg/dL Lactate 2.6 H (0.7-2.1) mmol/L Calcium 9.8 (8.4-10.2) mg/dL Total Bilirubin 0.9 (0.2-1.3) mg/dL AST 33 (17-59) IU/L ALT 25 (<50) IU/L Alkaline Phosphatase 99 (38-126) U/L Troponin I < 0.012 (0.01-0.034) ng/mL Total Protein 8.9 H (6.3-8.2) g/dL Albumin 5.0 (3.5-5.0) g/dL Globulin 3.9 (1.7-4.1) g/dL Albumin/Globulin Ratio 1.3 (1.0-2.8) Lipase 121 (23-300) U/L [facility] Narrative Medical decision making narrative: 74-year-old male with no prior medical history comes in with mid abdominal pain has worsened throughout the evening. Patient being worked up for abdominal pain at this time. Case signed out to next physician Dr Enmanuel Mackey. <Jatinder Mackey MD - Last Filed: 04/14/25 15:34> Lab Data Lab results narrative: Patient has a leukocytosis with a white count of 16.6. Normal hemoglobin and platelets. Chemistries are reassuring although his random glucose is 204. Lactic acid is elevated at 2.6. Lipase is normal. Labs: Lab Results 04/14/25 Range/Units 06:23 WBC 16.6 H (4.5-11.0) X10^3/uL RBC 4.95 (4.5-5.9) X10^6/uL Hgb 15.9 (13.5-17.5) g/dL Hct 46.0 (41-53) % MCV 92.9 (80-100) fL MCH 32.1 (26-34) PG MCHC 34.6 (30-36) % RDW 13.3 (11.6-14.8) % Plt Count 210 (150-400) X10^3/uL Neut % (Auto) 71.2 (50-75) % Lymph % (Auto) 18.0 L (25-40) % [place] % (Auto) 8.7 (3-14) % Eos % (Auto) 1.8 L (2-4) % Baso % (Auto) 0.3 (0-2) % Neut # (Auto) 15475 H (5062-9517) /uL Lymph # (Auto) 3000 (6936-0081) /uL [place] # (Auto) 1400 H (0-900) /uL Eos # (Auto) 300 (0-450) /uL Baso # (Auto) 100 (0-100) /uL Sodium 137 (137-145) mmol/L Potassium 3.8 (3.4-5.1) mmol/L Chloride 102 (98-107) mmol/L Carbon Dioxide 22 (22-32) mmol/L BUN 16 (9-20) mg/dL Creatinine 1.00 (0.66-1.25) mg/dL Estimated GFR > 60 (>60) mL/min BUN/Creatinine Ratio 16.0 (6-22) Glucose 204 H (70-99) mg/dL Lactate 2.6 H (0.7-2.1) mmol/L Calcium 9.8 (8.4-10.2) mg/dL Total Bilirubin 0.9 (0.2-1.3) mg/dL AST 33 (17-59) IU/L ALT 25 (<50) IU/L Alkaline Phosphatase 99 (38-126) U/L Troponin I < 0.012 (0.01-0.034) ng/mL Total Protein 8.9 H (6.3-8.2) g/dL Albumin 5.0 (3.5-5.0) g/dL Globulin 3.9 (1.7-4.1) g/dL Albumin/Globulin Ratio 1.3 (1.0-2.8) Lipase 121 (23-300) U/L Imaging Data CT scan - abdomen/pelvis: My Impression: Independently reviewed CT abdomen and pelvis. There is a gallstone in the neck of the gallbladder. There are no surrounding signs of inflammation to suggest acute cholecystitis on CT. Stomach is mildly distended, there are dilated fluid-filled loops of small bowel. It appears to be that this patient has a small bowel obstruction. Radiologist's Impression: [address] [address] [address] Scan Report Signed Patient: Fabian Westfall MR#: [id number] : 1950 Acct:[id number] Age/Sex: 74 / M Date of Service: 04/14/25 Loc: ICU 229-1 Accession Number: [id number] Procedure: CT abdomen pelvis w con Ordering Provider: Abdirahman Stubbs MD PROCEDURE: CT ABDOMEN PELVIS W CON INDICATIONS: abdominal pain TECHNIQUE: After the administration of intravenous contrast, axial sections acquired from the lung bases to the pubic symphysis. Coronal and sagittal reformats were performed. For radiation dose reduction, the following was used: automated exposure control, adjustment of mA and/or kV according to patient size. COMPARISON: [facility], CT, CT ABDOMEN PELVIS W CON, 05/31/2023, 19:27. FINDINGS: Image quality: Diagnostic. Lower Chest: Coronary artery calcifications. Fluid noted in the lower thoracic esophagus. Wall thickening with calcifications noted in lung bases. ABDOMEN: Liver: No solid mass. Gallbladder: Gallstones without obvious wall thickening or pericholecystic inflammation. Biliary ducts: No biliary dilation. Pancreas: No ductal dilation. Spleen: Size is within normal limits. Adrenal Glands: No adrenal nodules. Kidneys and Ureters: No contour deforming renal masses or enhancing lesions. No renal or ureteral stone. Stomach and Bowel: Colonic diverticulosis noted without wall thickening or pericolonic inflammation. Large bowel is largely decompressed. Normal appendix. Multiple dilated small bowel loops with air-fluid levels and mesenteric edema. Relative transition point in the distal small bowel best seen on image 3, 40 and 2, 87 with associated mild small bowel wall thickening and hyperemia fills. Decompressed distal small bowel in the right lower quadrant on image 113. Peritoneum: Small volume ascites. No pneumoperitoneum. Ventral Wall: No significant ventral hernia. Abdominal Nodes: Aorta and inferior vena cava are normal in size. Moderate atheromatous plaques are noted in the nonaneurysmal abdominal aorta. Vessels: Aorta and inferior vena cava are normal in size. PELVIS: Pelvic Organs: Punctate prostate calcifications are noted. Otherwise unremarkable. Bladder: No bladder wall thickening, accounting for underdistention. Pelvic Nodes: No enlarged lymph nodes. Miscellaneous: Small left inguinal fat containing hernia. No right inguinal hernia during Bones: No aggressive osseous abnormality. Multilevel degenerative disc disease and facet arthopathy noted. IMPRESSION: Multiple dilated small bowel loops with an apparent transition point in the quadrant. Imaging findings concerning for partial small bowel obstruction or less likely ileus. Mesenteric edema noted. Diverticulosis. Normal appendix. No large bowel inflammation. Dictated by: Federica Robertson M.D. on 04/14/2025 at 8:27 Approved by: Federica Robertson M.D. on 04/14/2025 at 8:36 US - abdomen: Radiologist's Impression: [address] [address] Ultrasound Report Signed Patient: Fabian Westfall MR#: [id number] : 1950 Acct:[id number] Age/Sex: 74 / M Date of Service: 04/14/25 Loc: 90A-1 Accession Number: [id number] Procedure: US abdomen limited Ordering Provider: Jatinder Mackey MD PROCEDURE: US ABDOMEN LIMITED INDICATIONS: abd pain gallstone TECHNIQUE: Real-time scanning was performed of the abdominal and retroperitoneal organs, with image documentation. COMPARISON: [facility], CT, CT ABDOMEN PELVIS W CON, 04/14/2025, 6:43. FINDINGS: Liver: The liver demonstrates diffusely increased echotexture without focal abnormalities consistent with chronic hepatocellular disease/hepatic steatosis. Gallbladder: There is a large gallstone lodged within the cystic duct/common bile duct junction. This measures approximately 1.2 cm in size. There is mild wall thickening measuring up to 4 mm. Small amount of pericholecystic fluid. No sonographic Cunha sign reported. Biliary ducts: Intrahepatic bile ducts are non-dilated. Extrahepatic bile duct caliber measures 3 mm. Normal is 6-7 mm or less in diameter, or 10 mm or less post-cholecystectomy. Pancreas: Visualized portions of the pancreas are sonographically normal. Miscellaneous: No free abdominal fluid. IMPRESSION: A 1.2 cm gallstone lodged within the cystic duct/common bile duct junction with wall thickening and small amount of pericholecystic fluid. No reported abnormal sonographic Cunha sign. Findings may represent cholelithiasis with early acute cholecystitis. Dictated by: Pola Anaya M.D. on 04/14/2025 at 8:15 Approved by: Pola Anaya M.D. on 04/14/2025 at 8:18 ECG Data Interpretation: ECG shows sinus rhythm at 70 normal intervals, no acute ST elevation old septal infarct based on Q's in V1 and V2 MDM Narrative Medical decision making narrative: 74-year-old male with no prior medical history comes in with mid abdominal pain has worsened throughout the evening. Patient being worked up for abdominal pain at this time. Case signed out to next physician Dr Enmanuel Mackey. Workup showed evidence of a small-bowel obstruction which is consistent with the history. Differential diagnosis considered but felt less likely includes acute cholecystitis, pancreatitis, perforated viscus, urinary tract infection. Lactic acid is noted to be elevated and he does have a leukocytosis sepsis is considered at this point I have not identified an infectious source and have not started empiric antibiotics in a patient who I do not think he is septic. I have started fluids. General surgery will consult and Medicine will admit. Discharge Plan Departure Patient Disposition: Admitted as Observation Clinical Impression: Complete small bowel obstruction Abdominal pain Qualifiers: Abdominal location: generalized Qualified Code(s): R10.84 - Generalized abdominal pain Admit Date/Time: 04/14/25 07:31 Admit Provider: Harish Timmons
[2025-04-14 06:31] LABS: Add Manual Diff / Slide Review NO; Hematocrit 46.0 % (41-53); Hemoglobin 15.9 g/dL (13.5-17.5); Lymphocytes Absolute Auto 3000 /uL (1100-4500); Mean Corpuscular HGB Conc 34.6 % (30-36); Mean Corpuscular Hemoglobin 32.1 PG (26-34); Mean Corpuscular Volume 92.9 fL (80-100); Platelet Count 210 X10^3/uL (150-400)
[2025-04-14] MEDS: MORPHINE 4 MG/ML INJ IV (06:35)
[2025-04-14 06:41] LABS: Alanine Aminotransferase 25 IU/L (<50); Albumin 5.0 g/dL (3.5-5.0); Albumin Globulin Ratio 1.3 (1.0-2.8); Alkaline Phosphatase 99 U/L (38-126); Blood Urea Nitrogen 16 mg/dL (9-20); Calcium 9.8 mg/dL (8.4-10.2); Carbon Dioxide 22 mmol/L (22-32); Chloride 102 mmol/L (98-107); Estimated Glomerular Filt Rate > 60 mL/min (>60); Globulin 3.9 g/dL (1.7-4.1); Glucose 204 mg/dL (70-99); HEMOLYSIS < 15 (0-50); Lipase 121 U/L (23-300); Potassium 3.8 mmol/L (3.4-5.1); Sodium 137 mmol/L (137-145); Total Protein 8.9 g/dL (6.3-8.2)
[2025-04-14 06:52] LABS: Troponin I < 0.012 ng/mL (0.01-0.034)
--- NOTE | 2025-04-14 07:17 | DI.US.S_ITS ---
PROCEDURE: US ABDOMEN LIMITED INDICATIONS: abd pain gallstone TECHNIQUE: Real-time scanning was performed of the abdominal and retroperitoneal organs, with image documentation. COMPARISON: [facility], CT, CT ABDOMEN PELVIS W CON, 04/14/2025, 6:43. FINDINGS: Liver: The liver demonstrates diffusely increased echotexture without focal abnormalities consistent with chronic hepatocellular disease/hepatic steatosis. Gallbladder: There is a large gallstone lodged within the cystic duct/common bile duct junction. This measures approximately 1.2 cm in size. There is mild wall thickening measuring up to 4 mm. Small amount of pericholecystic fluid. No sonographic Cunha sign reported. Biliary ducts: Intrahepatic bile ducts are non-dilated. Extrahepatic bile duct caliber measures 3 mm. Normal is 6-7 mm or less in diameter, or 10 mm or less post-cholecystectomy. Pancreas: Visualized portions of the pancreas are sonographically normal. Miscellaneous: No free abdominal fluid. IMPRESSION: A 1.2 cm gallstone lodged within the cystic duct/common bile duct junction with wall thickening and small amount of pericholecystic fluid. No reported abnormal sonographic Cunha sign. Findings may represent cholelithiasis with early acute cholecystitis. Dictated by: Pola Anaya M.D. on 04/14/2025 at 8:15 Approved by: Pola Anaya M.D. on 04/14/2025 at 8:18
[2025-04-14 07:20] LABS: Lactate (Lactic Acid) 2.6 mmol/L (0.7-2.1)
[2025-04-14] MEDS: SODIUM CHLORIDE 0.9% 1,000 ML 1000 ML IV (07:21)
--- NOTE | 2025-04-14 07:26 | DI.RAD.S_ITS ---
PROCEDURE: XR CHEST 1V INDICATIONS: abd pain TECHNIQUE: One view of the chest was acquired. COMPARISON: [facility], , CHEST 2 VIEW, 05/02/2016, 10:16. FINDINGS: Surgical changes and devices: None. Lungs and pleura: Lungs are clear. No pleural effusions or pneumothorax. Mediastinum: Mediastinal contours appear normal. Heart size is normal. Bones and chest wall: No suspicious bony lesions. Overlying soft tissues appear unremarkable. IMPRESSION: No acute cardiopulmonary abnormality is seen. Dictated by: Kyle Robertson M.D. on 04/14/2025 at 7:37 Approved by: Kyle Robertson M.D. on 04/14/2025 at 7:37
--- NOTE | 2025-04-14 08:43 | PM.CN.IH.1 ---
History of Present Illness Consult details Date Patient Seen: 04/14/25 Time Patient Seen: 08:43 Chief complaint: Abdominal Pain Reason for consult: SBO Requesting provider: Abdirahman Stubbs Narrative: Surgery consult requested by ED for small bowel obstruction. The patient had inguinal hernia repair but no abdominal surgery in the past. History of small-bowel obstruction that resolved without surgery. The patient developed sharp abdominal pain yesterday with nausea and vomiting. Decreased BM and flatus. WBC 16.6. NLR 3. LFTs normal, lactate 2.6 CT: Multiple dilated small bowel loops with air-fluid levels and mesenteric edema. Relative transition point in the distal small bowel best seen on image 3, 40 and 2, 87 with associated mild small bowel wall thickening and hyperemia fills. Decompressed distal small bowel in the right lower quadrant on image 113. US: A 1.2 cm gallstone lodged within the cystic duct/common bile duct junction with wall thickening and small amount of pericholecystic fluid. No reported abnormal sonographic Cunha sign. Findings may represent cholelithiasis with early acute cholecystitis. Meds Home Medications and Allergies Home Medications ?Medication ?Instructions ?Recorded ?Confirmed ?Type omeprazole 20 mg capsule,delayed 20 mg PO DAILY 10/19/20 11/22/24 History release magnesium citrate 100 mg tablet mg PO 10/26/23 11/22/24 History tirzepatide (weight loss) 5 mg/0.5 5 mg (0.5 mL) SUBCUT QWEEK #2 mL 12/19/24 Rx mL subcutaneous solution (Zepbound) tirzepatide (weight loss) 7.5 7.5 mg (0.5 mL) SUBCUT QWEEK #2 mL 12/26/24 Rx mg/0.5 mL subcutaneous solution (Zepbound) Allergies Allergy/AdvReac Type Severity Reaction Status Date / Time No Known Drug Allergies Allergy Verified 04/14/25 06:19 Exam Vital Signs (past 8 hours): - 04/14/25 06:19 04/14/25 06:21 04/14/25 06:30 Temperature 94.3 F L Pulse Rate 83 74 75 Respiratory Rate 17 12 Blood Pressure 207/110 H Pulse Oximetry 97 95 98 Oxygen Delivery Method Room Air 04/14/25 06:30 04/14/25 06:59 04/14/25 06:59 Temperature Pulse Rate 82 Respiratory Rate 19 Blood Pressure 200/80 H 176/84 H Pulse Oximetry 96 Oxygen Delivery Method 04/14/25 07:00 04/14/25 07:00 Temperature Pulse Rate 83 Respiratory Rate 21 Blood Pressure 169/79 H Pulse Oximetry 98 Oxygen Delivery Method Oxygen Delivery Method Room Air Narrative Exam Narrative: Const General: healthy appearing, comfortable and no acute distress Orientation: alert and oriented x3 HENMT Ears: hearing grossly normal bilaterally Eyes Visual Montoya: normal visual montoya by confrontation Conjunctivae: conjunctivae normal Sclera: sclerae normal EOM: EOM intact bilaterally Resp Effort & Inspection: normal respiratory effort and able to speak in complete sentences Cardio Rate: regular rate GI Palpation: distended, +tympany, diffusely tender but not peritoneal, no abd scars Extrem General: no pedal edema and no calf tenderness Objective Labs 04/14/25 06:23 04/14/25 06:23 Labs: Laboratory Results - last 24 hr 04/14/25 06:23 WBC 16.6 H RBC 4.95 Hgb 15.9 Hct 46.0 MCV 92.9 MCH 32.1 MCHC 34.6 RDW 13.3 Plt Count 210 Neut % (Auto) 71.2 Lymph % (Auto) 18.0 L [place] % (Auto) 8.7 Eos % (Auto) 1.8 L Baso % (Auto) 0.3 Neut # (Auto) 89494 H Lymph # (Auto) 3000 [place] # (Auto) 1400 H Eos # (Auto) 300 Baso # (Auto) 100 Sodium 137 Potassium 3.8 Chloride 102 Carbon Dioxide 22 BUN 16 Creatinine 1.00 Estimated GFR > 60 BUN/Creatinine Ratio 16.0 Glucose 204 H Lactate 2.6 H Calcium 9.8 Total Bilirubin 0.9 AST 33 ALT 25 Alkaline Phosphatase 99 Troponin I < 0.012 Total Protein 8.9 H Albumin 5.0 Globulin 3.9 Albumin/Globulin Ratio 1.3 Lipase 121 [facility] Medical History History of melena Chronic right hip pain Acid reflux Essential hypertension Small bowel obstruction Peripheral vascular disease Hernia (1987) Colon polyps (2016) GERD (gastroesophageal reflux disease) Hemorrhoids Mumps Chicken pox Acne (1961) Eczema (1950) Surgical History History of colonoscopy with polypectomy (2017) Anesthesia History of carpal tunnel repair (04/26/17) Status post hernia repair (1997) Family History Brother Age: 81 Crohn's disease without complication, unspecified gastrointestinal tract location Father Alzheimer's dementia without behavioral disturbance, unspecified timing of dementia onset Tobacco use disorder Brother No problems noted. Grandfather No problems noted. Mother Hip fracture Social History household members: significant other Tobacco & Substance Use Smoking Status: Former smoker alcohol intake: current Assessment & Plan Assessment and plan (1) Cholecystitis with cholelithiasis: Qualifiers: Cholelithiasis location: gallbladder Cholecystitis acuity: acute Biliary obstruction: without biliary obstruction Qualified Code(s): K80.00 - Calculus of gallbladder with acute cholecystitis without obstruction Status: Acute Plan SBO - no prior abd surgery, h/o prior SBO that resolved without surgery, recommend NPO, NGT, gastrografin challenge tomorrow after decompression, recommend electrolyte replacement as indicated (K, Mg, Phos). Cholecystitis - recommend IV antibiotics (ie ceftriaxone/flagyl) based on u/s, elevated WBC, unclear if related to SBO, seems unlikely, monitor improvement on IV abx Will follow Time-Based Coding :: [TOTAL MINUTES] spent with patient and on the chart (including review of chart, obtaining history, exam, reviewing outside data, placing orders, documenting exam and treatment plan, and counseling patient) on [DATE]. PROFEE Charge Codes Inpatient or Observation consultation: [id number]
[2025-04-14 08:48] LABS: Reflexed Lactate in 2 Hours Y
--- NOTE | 2025-04-14 09:17 | DI.RAD.S_ITS ---
PROCEDURE: XR CHEST 1V INDICATIONS: Post NG tube placement TECHNIQUE: One view of the chest was acquired. COMPARISON: [facility], CR, XR CHEST 1V, 04/14/2025, 7:22. FINDINGS: Surgical changes and devices: Interval placement of nasogastric tube. Distal tip is coiled within the expected location of the stomach. Nasogastric tube extends below the level of the gastroesophageal junction. Lungs and pleura: Lungs are clear. No pleural effusions or pneumothorax. Mediastinum: Mediastinal contours appear normal. Heart size is normal. Bones and chest wall: No suspicious bony lesions. Overlying soft tissues appear unremarkable. IMPRESSION: Interval placement of nasogastric tube which appears to be in adequate position. Incidental note of coiling of the distal tip. Dictated by: Pola Anaya M.D. on 04/14/2025 at 9:37 Approved by: Pola Anaya M.D. on 04/14/2025 at 9:38
[2025-04-14 10:21] LABS: Lactate 2HR (Lactic Acid Rflx) 1.5 mmol/L (0.7-2.1)
--- NOTE | 2025-04-14 12:23 | PM.HP.1 ---
History of Present Illness History of Present Illness Date Patient Seen: 04/14/25 Chief complaint: Abdominal Pain Narrative: This is a 74-year-old male with a history of small-bowel obstruction, left inguinal hernia repair, macular degeneration, Zepbound for weight loss and osteoarthritis who presents with nausea/vomiting/abdominal pain beginning at 11:00 p[address] last night. The CT shows a small bowel obstruction and the ultrasound shows cholelithiasis/cholecystitis with a 1.2 cm stone impacted in the cystic duct/common bile duct junction. The white blood count is 16.6. The lipase is 121. The total protein is 8.9. Surgery has seen him and is treating him with NG tube aspiration, bowel rest and antibiotics for the cholecystitis also. Assessment and plan: Small-bowel obstruction, present on admission. Active. -likely related to cholelithiasis/cholecystitis. -being followed by General surgery -NG tube -IV metronidazole/ceftriaxone. -follow leukocytosis and blood cultures. Cholelithiasis/cholecystitis, present on admission. Active. -being followed by General surgery -continue IV metronidazole/ceftriaxone. Enoxaparin for DVT prevention [facility] Medical History (Updated 04/14/25 @ 08:48 by Marquis Mendoza MD) History of melena Chronic right hip pain Acid reflux Essential hypertension Small bowel obstruction Peripheral vascular disease Hernia (1987) Colon polyps (2016) GERD (gastroesophageal reflux disease) Hemorrhoids Mumps Chicken pox Acne (1961) Eczema (1950) Surgical History (Updated 04/14/25 @ 19:11 by Harish Timmons MD) H/O vein stripping History of colonoscopy with polypectomy (2016) Anesthesia History of carpal tunnel repair (04/26/17) Status post hernia repair (1997) Family History Brother Age: 81 Crohn's disease without complication, unspecified gastrointestinal tract location Father Alzheimer's dementia without behavioral disturbance, unspecified timing of dementia onset Tobacco use disorder Brother No problems noted. Grandfather No problems noted. Mother Hip fracture Social History household members: significant other Smoking Status: Former smoker alcohol intake: current Meds Home Medications and Allergies Home Medications ?Medication ?Instructions ?Recorded ?Confirmed ?Type omeprazole 20 mg capsule,delayed 20 mg PO DAILY 10/19/20 04/14/25 History release tirzepatide (weight loss) 5 mg/0.5 5 mg (0.5 mL) SUBCUT QWEEK #2 mL 12/19/24 04/14/25 Rx mL subcutaneous solution (Zepbound) tirzepatide (weight loss) 7.5 7.5 mg (0.5 mL) SUBCUT QWEEK #2 mL 12/26/24 04/14/25 Rx mg/0.5 mL subcutaneous solution (Zepbound) naproxen sodium 220 mg tablet 440 mg PO DAILY PRN pain 04/14/25 04/14/25 History (Aleve) Allergies Allergy/AdvReac Type Severity Reaction Status Date / Time No Known Drug Allergies Allergy Verified 04/14/25 06:19 Review of Systems Review of Systems Narrative: Positive for abdominal pain, nausea, vomiting and toe numbness. Negative for fevers, chills, sweats, coughing, diarrhea, bleeding, rash, headache, sore throat. Exam Vital Signs (past 8 hours): - 04/14/25 06:19 04/14/25 06:21 04/14/25 06:30 Temperature 94.3 F L Pulse Rate 83 74 75 Respiratory Rate 17 12 Blood Pressure 207/110 H Pulse Oximetry 97 95 98 Oxygen Delivery Method Room Air 04/14/25 06:30 04/14/25 06:59 04/14/25 06:59 Temperature Pulse Rate 82 Respiratory Rate 19 Blood Pressure 200/80 H 176/84 H Pulse Oximetry 96 Oxygen Delivery Method 04/14/25 07:00 04/14/25 07:00 Temperature Pulse Rate 83 Respiratory Rate 21 Blood Pressure 169/79 H Pulse Oximetry 98 Oxygen Delivery Method Oxygen Delivery Method Room Air Narrative Exam Narrative: Alert and oriented. Moderate distress from NG tube and abdominal pain. Pupils are equally round and reactive to light and accommodation. Extraocular muscles are intact. Sclerae are pink and nonicteric. No lymph nodes are felt head, neck, supraclavicular area. There is no thyromegaly. JVD is less than 6 cm. NG tube is in the left nostril. No carotid bruits are heard. Lungs are clear to auscultation bilaterally. Heart is regular rate and rhythm without murmur. Abdomen is obese, nontender, no organomegaly, bowel sounds active. Skin has no rash. Cranial nerves 2-12 test intact. Motor function is 5/5 throughout. There is no tremor. Diminished sensation in the feet. Skin is cool to the touch. Objective Labs 04/14/25 06:23 04/14/25 06:23 Labs: Laboratory Results - last 24 hr 04/14/25 04/14/25 06:23 10:00 WBC 16.6 H RBC 4.95 Hgb 15.9 Hct 46.0 MCV 92.9 MCH 32.1 MCHC 34.6 RDW 13.3 Plt Count 210 Neut % (Auto) 71.2 Lymph % (Auto) 18.[address] [place] % (Auto) 8.7 Eos % (Auto) 1.8 L Baso % (Auto) 0.3 Neut # (Auto) 16934 H Lymph # (Auto) 3000 [place] # (Auto) 1400 H Eos # (Auto) 300 Baso # (Auto) 100 Sodium 137 Potassium 3.8 Chloride 102 Carbon Dioxide 22 BUN 16 Creatinine 1.00 Estimated GFR > 60 BUN/Creatinine Ratio 16.0 Glucose 204 H Lactate 2.6 H 1.5 Calcium 9.8 Total Bilirubin 0.9 AST 33 ALT 25 Alkaline Phosphatase 99 Troponin I < 0.012 Total Protein 8.9 H Albumin 5.0 Globulin 3.9 Albumin/Globulin Ratio 1.3 Lipase 121 Assessment & Plan Time-Based Coding :: [TOTAL MINUTES] spent with patient and on the chart (including review of chart, obtaining history, exam, reviewing outside data, placing orders, documenting exam and treatment plan, and counseling patient) on [DATE].
[2025-04-14] MEDS: SODIUM CHLORIDE 0.9% 1,000 ML 125 ML IV ×2 (12:50→22:13)
[2025-04-14 12:59] LABS: MRSA (Nasal) PCR NOT DETECTED (Not Detect)
[2025-04-14] MEDS: cefTRIAXone 2,000 MG in SODIUM CHLORIDE 0.9% 100 ML 200 MG IV (15:37)
[2025-04-14] MEDS: metroNIDAZOLE 500 MG/100 ML PIGGYBACK 100 MG IV ×2 (16:50→20:50)
--- NOTE | 2025-04-14 18:50 | CM.MNRNOTE ---
Admit Note Patient arrived to room at 0949. Walked to bed from stretcher without issue. NG tube in place and connected to LIS. Denies pain, denies nausea. Cell phone at bedside, shoes, wallet, and clothing with pt, declines to lock up any valuables.. BP up to the 180s systolic, Dr. Timmons notified. Oriented to room and to call light/bed/tv controls. Call light within reach, using appropriately to make needs known.
[2025-04-15] VITALS (10 sets, daily range): BP systolic 157–196; BP diastolic 75–92; PULSE 61–84; RESP 15–24; TEMP 36.2–36.5; O2SAT 93–99
--- NOTE | 2025-04-15 | PATH_ITS ---
[facility] Accession Number: [id number] No. of containers..02 Tissue . 01 Material submitted: . PART A: gallbladder - GALLBLADDER PART B: small bowel - SMALL BOWEL MASS . 01 Diagnosis: A. GALLBLADDER, CHOLECYSTECTOMY: Cholelithiasis with mild chronic cholecystitis. No evidence of neoplasm. . B. SMALL BOWEL, SEGMENTAL RESECTION: Well-differntiated neuroendocrine tumor, G2; see case summary. . . CASE SUMMARY - SMALL BOWEL NEUROENDOCRINE TUMOR Specimen Procedure: Segmental resection. Tumor Tumor site: Distal ileum. Histologic type and grade: G2, well-differentiated neuroendocrine tumor. Histologic grade determination Ki-67 labeling index: 3-20%. Tumor size: 1.7 cm in greatest dimension. Tumor focality: Unifocal. Tumor extent: Invades visceral peritoneum. Lymphovascular invasion: Not identified. Perineural invasion: Not identified. Large mesenteric masses: Not identified. Margins Margin status: All margins negative for tumor. Closest margin to tumor: Cannot be determined - unoriented. Distance from tumor to closest margin: 0.4 cm on glass slide. Regional lymph nodes Regional lymph node status: Not applicable - no regional lymph nodes submited or found. Distant metastases: Not applicable. pTNM classification (AJCC version 9) pT category: pT4 pN category: pN not assigned. [facility] 04/30/2025 1029 Local . 01 Comment: B. As part of routine air quality instrument specialist, Dr. Barrett has reviewed part B of this case and agrees with the diagnosis of well-differentiated neuroendocrine tumor, grade 2, extending to the serosa. The findings in this case were discussed between Dr. Mendoza and Dr. Matt on 04/29/2025 at 4:50 p.m. . 01 Electronically signed: . Sam Matt MD, PhD, Pathologist NPI- [id number] . 01 Gross description: . A. Received in formalin with two patient identifiers and gallbladder and consists of an 8.1 x 4.1 x 3.0 cm unopened gallbladder. The serosal surface is moralez-purple with a moderate amount of attached yellow lobulated unremarkable adipose tissue and slightly congested serosal vessels. There is a 0.3 x 0.3 cm clipped probe-patent cystic duct which is inked blue. The specimen is opened to show an intact gallbladder wall that ranges from 0.1 up to 0.2 cm in thickness. The mucosa is moralez-green, finely granular, and free of polyps or masses. The lumen on the gallbladder is filled with approximately 30 mL of green viscous bile and a 3.5 x 2.8 x 2.4 cm aggregate of yellow to green, ovoid, multifaceted gallstones. The attached serosal adipose tissue is further examined to show a yellow, lobulated, unremarkable cut surface. No palpable lymphoid material is appreciated. Ophthalmic Dispenser sections are submitted in cassette A1 to include cystic duct. B. Received in formalin with two patient identifiers and small bowel mass and consists of a 4.5 cm in length by 2.7 cm in diameter segment of small bowel which is stapled at both ends. The serosal surface is moralez-pink, smooth and glistening with a 1.0 x 0.7 cm white, firm, retracted serosal nodule which is further located 0.8 cm from the nearest black-inked stapled resection margin. In addition, there is a 6 cm in length by 1.5 cm in diameter attached segment of mesenteric adipose tissue. The specimen is inked as follows: The resection margins are inked black and blue, the mesenteric radial margin is inked green, and the retracted white firm serosal surface is inked orange. The specimen is opened to show a 1.7 x 1.1 cm, centrally ulcerated white firm focally hemorrhagic nodule which extends 0.4 cm into the underlying bowel wall, however, does not penetrate the bowel wall. This nodular mass is further located 1 cm from the black-inked staple resection margin. The remaining intestinal mucosa is moralez, slightly green, finely granular, and free of additional masses or lesions. The uninvolved bowel wall is uniformly thick and ranges from 0.1 up to 0.2 cm in thickness. The attached mesenteric adipose tissue is further examined to show a yellow lobulated unremarkable cut surface. No satellite nodules or lymph nodes are appreciated. Ophthalmic Dispenser sections are submitted as follows: B1: Tumor to black inked closest resection margin (perpendicular sections). B2: Tumor nodule to orange-inked serosal surface and underlying bowel wall. B3: Tumor nodule to adjacent uninvolved small bowel. B4: Radial mesenteric margin (shave). B5: Blue-inked staple line resection margin. B6: Ophthalmic Dispenser section of uninvolved small bowel. ([id number]) /MRV 04/16/2025 1849 Local . 01 Microscopic: . Sections are of small bowel with a proliferation of epithelioid cells in a nested growth pattern infiltrating through the lamina propria, muscularis propria up to the serosa. The neoplastic cells are strongly and diffusely positive for JAMARCUS (pancytokeratin), chromogranin, synaptophysin, CDX2, and villin immunoreactivity, consistent with a well-differentiated neuroendocrine tumor of gastrointestinal origin. The Ki-67 proliferative index is approximately 5%, consistent with a grade of G2. All controls stains show appropriate reactivity. . * This test was developed and the performance characteristics were validated by [employer]. It has not been cleared or approved by the U.S. Food and Drug Administration. . 01 Pathologist provided ICD-10: K80.60, D3A.012 . 01 CPT . 466012, 076048, Y82901, V55129 Specimen Comment: A courtesy copy of this report has been sent to [facility] Performed at: [address] [address], [place], [place] [id number] MD Fan Chino MD Phone: [phone]
--- NOTE | 2025-04-15 | DI.RAD.S_ITS ---
PROCEDURE: XR CHOLANGIOGRAM OPERATIVE INDICATIONS: lap clayton COMPARISON: [facility], CT, CT ABDOMEN PELVIS W CON, 04/14/2025, 6:43. [facility], US, US ABDOMEN LIMITED, 04/14/2025, 8:04. FINDINGS: Biliary ducts: The surgeon injected contrast into the biliary ducts after cannulation of the cystic duct stump. Visualized intra- and extrahepatic bile ducts are normal in caliber, without strictures. No intraluminal filling defects to suggest retained ductal stones or sludge. No evidence for iatrogenic ductal injury. Duodenum: Contrast flows promptly through the sphincter of Oddi into the duodenum, which appears normal in caliber. IMPRESSION: No evidence of biliary leak. No intraluminal filling defects in the common bile duct. Dictated by: Federica Robertson M.D. on 04/16/2025 at 8:17 Approved by: Federica Robertson M.D. on 04/16/2025 at 8:18
[2025-04-15] MEDS: metroNIDAZOLE 500 MG/100 ML PIGGYBACK 100 MG IV ×4 (03:20→20:08)
[2025-04-15 05:19] LABS: Add Manual Diff / Slide Review NO; Hematocrit 41.0 % (41-53); Hemoglobin 14.1 g/dL (13.5-17.5); Lymphocytes Absolute Auto 1900 /uL (1100-4500); Mean Corpuscular HGB Conc 34.4 % (30-36); Mean Corpuscular Hemoglobin 32.0 PG (26-34); Mean Corpuscular Volume 93.0 fL (80-100); Platelet Count 162 X10^3/uL (150-400)
[2025-04-15 05:33] LABS: Alanine Aminotransferase 18 IU/L (<50); Albumin 4.3 g/dL (3.5-5.0); Albumin Globulin Ratio 1.4 (1.0-2.8); Alkaline Phosphatase 68 U/L (38-126); Blood Urea Nitrogen 11 mg/dL (9-20); Calcium 8.9 mg/dL (8.4-10.2); Carbon Dioxide 25 mmol/L (22-32); Chloride 102 mmol/L (98-107); Estimated Glomerular Filt Rate > 60 mL/min (>60); Globulin 3.1 g/dL (1.7-4.1); Glucose 114 mg/dL (70-99); HEMOLYSIS < 15 (0-50); Potassium 4.0 mmol/L (3.4-5.1); Sodium 136 mmol/L (137-145); Total Protein 7.4 g/dL (6.3-8.2)
--- NOTE | 2025-04-15 06:24 | PC.NURSE ---
pt A&Ox4, up with assist to bathroom, BMx1, abd soft round with BS noted on R side, c/o pain in throat from NG tube, NG draining mod amt thin bile fluid, meds and labs as ordered, call mane within reach, care ongoing
--- NOTE | 2025-04-15 06:59 | PM.PN.IH.1 ---
Subjective Subjective Date Patient Seen: 04/15/25 Time Patient Seen: 06:59 Interval history: No new c/o this morning. Wants NGT out Exam Vital Signs (past 8 hours): Oxygen Delivery Method Room Air Oxygen Flow Rate 0 Narrative Exam Narrative: Const General: comfortable and no acute distress Orientation: alert and oriented x3 Eyes Sclera: sclerae normal, non-icteric Resp Effort & Inspection: normal respiratory effort and able to speak in complete sentences Cardio Rate: regular rate GI Palpation: soft, less distended, non-peritoneal Extrem General: no pedal edema and no calf tenderness Objective Labs 04/15/25 04:35 04/15/25 04:35 Labs: Laboratory Results - last 24 hr 04/14/25 04/14/25 04/14/25 06:23 10:00 11:25 WBC RBC Hgb Hct MCV MCH MCHC RDW Plt Count Neut % (Auto) Lymph % (Auto) [place] % (Auto) Eos % (Auto) Baso % (Auto) Neut # (Auto) Lymph # (Auto) [place] # (Auto) Eos # (Auto) Baso # (Auto) Sodium Potassium Chloride Carbon Dioxide BUN Creatinine Estimated GFR BUN/Creatinine Ratio Glucose Lactate 2.6 H 1.5 Calcium Total Bilirubin AST ALT Alkaline Phosphatase Total Protein Albumin Globulin Albumin/Globulin Ratio Nasal Screen MRSA (PCR) Not detected 04/15/25 04:35 WBC 6.1 D RBC 4.41 L Hgb 14.1 Hct 41.0 MCV 93.0 MCH 32.0 MCHC 34.4 RDW 13.2 Plt Count 162 Neut % (Auto) 51.2 D Lymph % (Auto) 31.3 [place] % (Auto) 13.4 Eos % (Auto) 3.4 Baso % (Auto) 0.7 Neut # (Auto) 3100 Lymph # (Auto) 1900 [place] # (Auto) 800 Eos # (Auto) 200 Baso # (Auto) 0 Sodium 136 L Potassium 4.0 Chloride 102 Carbon Dioxide 25 BUN 11 Creatinine 0.80 Estimated GFR > 60 BUN/Creatinine Ratio 13.8 Glucose 114 H Lactate Calcium 8.9 Total Bilirubin 0.8 AST 25 ALT 18 Alkaline Phosphatase 68 Total Protein 7.4 Albumin 4.3 Globulin 3.1 Albumin/Globulin Ratio 1.4 Nasal Screen MRSA (PCR) [facility] Medical History (Updated 04/15/25 @ 07:01 by Marquis Mendoza MD) Small bowel obstruction History of melena Chronic right hip pain Acid reflux Essential hypertension Peripheral vascular disease Hernia (1987) Colon polyps (2017) GERD (gastroesophageal reflux disease) Hemorrhoids Mumps Chicken pox Acne (2) Eczema (1950) Surgical History (Updated 04/14/25 @ 19:11 by Harish Timmons MD) H/O vein stripping History of colonoscopy with polypectomy (2016) Anesthesia History of carpal tunnel repair (04/26/17) Status post hernia repair (1997) Family History Brother Age: 81 Crohn's disease without complication, unspecified gastrointestinal tract location Father Alzheimer's dementia without behavioral disturbance, unspecified timing of dementia onset Tobacco use disorder Brother No problems noted. Grandfather No problems noted. Mother Hip fracture Social History household members: significant other Smoking Status: Former smoker alcohol intake: current Assessment & Plan Assessment and plan (1) Cholecystitis with cholelithiasis: Qualifiers: Cholelithiasis location: gallbladder Cholecystitis acuity: acute Biliary obstruction: without biliary obstruction Qualified Code(s): K80.00 - Calculus of gallbladder with acute cholecystitis without obstruction Status: Acute Plan Acute cholecystitis Ileus vs SBO Plan lap choley today with cholangiogram. Abdominal distention decreased, NGT output low. Plan to run bowel at lap choley to differentiate ileus vs SBO. The improvement in distention suggests laparoscopy possible. If he does have an adhesive band, could address during laparoscopy. The risks, benefits and options regarding the procedure were explained to the patient in detail. Risk discussion included but not limited to: open incision, bleeding, infection, injury to bile duct, drain, bile leak, abscess. The patient was encouraged to ask questions and they were answered to their satisfaction. The patient understands and is agreeable to proceed. Time-Based Coding :: [TOTAL MINUTES] spent with patient and on the chart (including review of chart, obtaining history, exam, reviewing outside data, placing orders, documenting exam and treatment plan, and counseling patient) on [DATE]. Quality VTE Deep Vein Thrombosis/Pulmonary Embolism Present on Admission: No [facility]H PROFEE Fisher Purse Seine Document charge(s): Yes Charge Codes Subsequent inpatient/observation care: [id number]
[2025-04-15] MEDS: SODIUM CHLORIDE 0.9% 1,000 ML 125 ML IV ×2 (08:16→17:30)
--- NOTE | 2025-04-15 08:32 | PM.PN.1 ---
Subjective Subjective Date Patient Seen: 04/15/25 Interval history: This is a 74-year-old male with a history of small-bowel obstruction, left inguinal hernia repair, macular degeneration, Zepbound for weight loss and osteoarthritis who presents with nausea/vomiting/abdominal pain beginning at 11:00 p[address] last night. The CT shows a small bowel obstruction and the ultrasound shows cholelithiasis/cholecystitis with a 1.2 cm stone impacted in the cystic duct/common bile duct junction. The white blood count is 16.6. The lipase is 121. The total protein is 8.9. Surgery has seen him and is treating him with NG tube aspiration, bowel rest and antibiotics for the cholecystitis also. 04/15: After NG tube relief of the bowel obstruction the patient underwent laparoscopic cholecystectomy today. 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 His CBC and BMP were normal today. Assessment and plan: Small-bowel obstruction, present on admission. Active. -likely related to cholelithiasis/cholecystitis and distal ileum small bowel tumor found during surgery. -laparoscopic cholecystectomy/resection of small bowel tumor and terminal ileum 04/15 -NG tube out now -continue IV metronidazole/ceftriaxone. -follow leukocytosis and blood cultures. Cholelithiasis/cholecystitis, present on admission. Active. -surgical treatment on 04/15 -continue IV metronidazole/ceftriaxone. Enoxaparin for DVT prevention Exam Vital Signs (past 8 hours): Oxygen Delivery Method Room Air Oxygen Flow Rate 0 Narrative Exam Narrative: He is seen postoperatively in his room and appears quite uncomfortable. He is relieved to have the NG tube out. Heart is regular rate and rhythm without murmur. Lungs are clear to auscultation bilaterally. Extremities have no ankle edema. Abdomen remains mildly tender and distended as expected postoperatively. Bowel sounds are soft. Objective Labs 04/15/25 04:35 04/15/25 04:35 Labs: Laboratory Results - last 24 hr 04/14/25 04/14/25 04/15/25 10:00 11:25 04:35 WBC 6.1 D RBC 4.41 L Hgb 14.1 Hct 41.0 MCV 93.0 MCH 32.0 MCHC 34.4 RDW 13.2 Plt Count 162 Neut % (Auto) 51.2 D Lymph % (Auto) 31.3 [place] % (Auto) 13.4 Eos % (Auto) 3.4 Baso % (Auto) 0.7 Neut # (Auto) 3100 Lymph # (Auto) 1900 [place] # (Auto) 800 Eos # (Auto) 200 Baso # (Auto) 0 Sodium 136 L Potassium 4.0 Chloride 102 Carbon Dioxide 25 BUN 11 Creatinine 0.80 Estimated GFR > 60 BUN/Creatinine Ratio 13.8 Glucose 114 H Lactate 1.5 Calcium 8.9 Total Bilirubin 0.8 AST 25 ALT 18 Alkaline Phosphatase 68 Total Protein 7.4 Albumin 4.3 Globulin 3.1 Albumin/Globulin Ratio 1.4 Nasal Screen MRSA (PCR) Not detected [facility] Medical History (Updated 04/15/25 @ 07:01 by Marquis Mendoza MD) Small bowel obstruction History of melena Chronic right hip pain Acid reflux Essential hypertension Peripheral vascular disease Hernia (1987) Colon polyps (2016) GERD (gastroesophageal reflux disease) Hemorrhoids Mumps Chicken pox Acne (1961) Eczema (1950) Surgical History (Updated 04/14/25 @ 19:11 by Harish Timmons MD) H/O vein stripping History of colonoscopy with polypectomy (2016) Anesthesia History of carpal tunnel repair (04/26/17) Status post hernia repair (1997) Family History Brother Age: 81 Crohn's disease without complication, unspecified gastrointestinal tract location Father Alzheimer's dementia without behavioral disturbance, unspecified timing of dementia onset Tobacco use disorder Brother No problems noted. Grandfather No problems noted. Mother Hip fracture Social History household members: significant other Smoking Status: Former smoker alcohol intake: current Assessment & Plan Time-Based Coding :: [TOTAL MINUTES] spent with patient and on the chart (including review of chart, obtaining history, exam, reviewing outside data, placing orders, documenting exam and treatment plan, and counseling patient) on [DATE]. Quality VTE Deep Vein Thrombosis/Pulmonary Embolism Present on Admission: No
[2025-04-15] MEDS: LACTATED RINGERS 1,000 ML 42 ML IV (11:00)
--- NOTE | 2025-04-15 11:15 | SUR.OPER ---
Supine on padded OR bed, head on pillow, left arm secured on padded arm board at <90 degrees abduction, right arm tucked with gel pad at side, legs uncrossed, safety belt at thigh, foot board secured for positioning, final positioning approved by provider.
[2025-04-15] MEDS: BUPivacaine 0.25% W/ EPI (PF) 30 ML VIAL 60 ML INJ (12:05)
[2025-04-15] MEDS: ACETAMINOPHEN IV 1,000 MG/100 ML VIAL 400 MG IV (12:05)
--- NOTE | 2025-04-15 13:25 | PC.NURSE ---
LATE ENTRY for 04/14/25 at 1850: Admit Note Patient arrived to room at 0949. Walked to bed from stretcher without issue. NG tube in place and connected to LIS. Denies pain, denies nausea. Cell phone at bedside, shoes, wallet, and clothing with pt, declines to lock up any valuables.. BP up to the 180s systolic, Dr. Timmons notified. Oriented to room and to call light/bed/tv controls. Call light within reach, using appropriately to make needs known.
--- NOTE | 2025-04-15 13:29 | P.OP_ITS ---
Operative Date/Time/Diagnoses Date of procedure: 04/15/25 Time of procedure: 13:30 Pre-op diagnosis: Acute cholecystitis Post-op diagnosis: other (Acute cholecystitis, small bowel tumor in terminal ileum) Procedure & Clinicians Procedure: Laparoscopic cholecystectomy with intra-operative cholangiogram, resection of small bowel tumor Same procedure(s) as scheduled: Yes Indications: 74yo M presented to ED with SBO, acute cholecystitis Surgeon: Marquis Mendoza Assisted?: Yes Open Tenter Operator: Buster Null Anesthesia Type: General Operative Notes Findings: Acute and chronic cholecystitis, omental adhesions to gallbladder, acute and chronic inflammation, cholangiogram normal, small bowel tumor in distal ileum Closure Type: primary Specimen(s): other (gallbladder, small bowel tumor) Applied: none Estimated Blood Loss (mL): 20 Blood products transfused: none Procedure in detail: After informed consent and satisfactory general endotracheal anesthesia, the abdomen was prepped and draped in the usual sterile manner.? The patient received appropriate preoperative antibiotics and DVT prophylaxis.? Surgical time-out was performed with all team members in agreement.? The pneumoperitoneum was established under direct vision using the Sanders direct trocar cutdown technique.? An 0 Vicryl [id number] suture was placed on the umbilical fascia.? The 10 mm 30 degree lens was inserted and no trauma secondary to the trocar insertion was noted.? We performed bilateral laparoscopic TAP blocks using 25 cc of 0.25% Marcaine with epinephrine.? The additional 10 cc of local was used in the skin and subcutaneous tissues at the incision sites for a total of 60 cc of local.? The patient was placed in reverse Trendelenburg, [id number] position.? The gallbladder had extensive omental adhesions. There was a lot of acute and chronic inflammation and very edematous consistent with cholecystitis. The omental adhesions were taken down carefully with hook cautery. We had to aspirate 100 cc of dark bile to aid in grasping the gallbladder. The fundus of the gallbladder was grasped and retracted over the liver.? The infundibulum was retracted laterally for proper exposure of the cystic duct and artery.? Critical view of safety was achieved with 2 distinct structures entering the gallbladder and segment 5 of the liver posterior.? A cholangiogram was performed using a yellow ureteral catheter through the Borden clamp.? The cystic duct and cystic artery were skeletonized with hook cautery.? A clip was placed on the cystic duct next to the gallbladder.? A ductotomy was made with laparoscopic Metzenbaum scissors.? The cholangiogram was normal.? It demonstrated normal caliber right and left hepatic ducts, common hepatic duct and common bile duct without filling defect, mass or stricture.? The contrast flowed unobstructed into the duodenum.? The cholangiogram catheter was removed and the cystic duct was doubly clipped and divided.? The cystic artery was similarly skeletonized, doubly clipped and divided with laparoscopic Metzenbaum scissors.? The adhesions between the gallbladder and the liver were divided with hook cautery.? The gallbladder was placed into an endo-pouch and removed.? The gallbladder bed and clips were inspected and no bleeding or bile drainage was noted.? Since the patient was admitted with a small-bowel obstruction and transition point, I then ran the bowel from the ileocecal valve. Normal caliber collapsed distal bowel then came to a small bowel tumor and the bowel was dilated proximal to this consistent with partial obstruction. We then widened the infraumbilical incision so that the small bowel tumor could be externalized. We then removed the tumor by windowing the mesentery proximal and distal and divided the bowel with a YOVANI a 75 blue load. The mesentery was controlled with 2-0 Vicryl ties. We then performed the anastomosis by cutting off the stapled corners on the anti mesenteric side and firing a 3rd staple there load to create the [id number] anastomosis. The resulting defect was closed using 3-0 Vicryl running and this was oversewn with a 2nd layer imbricating the suture line with interrupted 3-0 Vicryl suture. A crotch stitch was placed to minimize the risk for leak. The anastomosis was palpably wide open. Hemostasis was good. This anastomosis was then returned to the peritoneal cavity. The trocars were removed and there was no bleeding noted at the trocar sites.? The umbilical fascia was closed using 2-O PDS interrupted without fascical defect. The subcutaneous layer was closed using 3-O Vicryl interrupted. The skin incisions were closed using 4-0 Monocryl in a subcuticular manner.? Dermabond glue was applied as a final dressing.? The estimated blood loss was minimal.? The instrument sponge and needle counts were all correct x2.? The patient tolerated the procedure well and was extubated in the operating room and transported to the recovery area in stable condition. Complications: none Post-operative Condition: stable Disposition: PACU Plan for aftercare: PACU then rivera
--- NOTE | 2025-04-15 13:41 | CM.DANOTE ---
B DCP Assessment note pt is a 74yo M admitted with SBO/cholecystitis with stone. plan is for lap [place] with surgeon this afternoon. had an NG tube, NG tube likely to be dc'd. PROCESS DESCRIPTION WRITER reviewed EMR. per chart, pt lives indep with partner Renu in [place]. no DME at baseline. per RN report, does not anticipate any DCP/CM needs. anticipate home when medically stable Pt in surgery during attempted assessment P: dc home with partner and OP f/u as needed. no identified barriers to safe dc home at this time. will continue to follow as needed in case any barriers should arise LISSETTE Sanchez Discharge Planning/Care Management CM Discharge Assessment Start: 04/14/25 07:36 Freq: Status: Active Protocol: Document 04/15/25 13:40 SL (Rec: 04/15/25 13:41 [id number]) Discharge Planning Assessment Assigned Discharge LISSETTE Saucedo Braille Operator Provider Carlos Carranza [facility] DPOA/Assigned Renu, partner Designee Name Contact Information [phone] Advance Directives? No History Provided By Patient Prior Living House Arrangements Household Members significant other Type of Drives own vehicle transporation used prior to admit Independent with ADL Yes 's Is patient alert and Yes oriented? Discharge Plan Home Referrals Initiated None needed Review Status In Process Please Provide Date 04/15/25 Initial DC Assessment Was Performed Next Review Type Continued Stay Review
[2025-04-15] MEDS: cefTRIAXone 2,000 MG in SODIUM CHLORIDE 0.9% 100 ML 200 MG IV (15:50)
--- NOTE | 2025-04-15 18:10 | PC.NURSE ---
Day Shift Note Pt alert and oriented x3. NPO for surgery, denies pain, NG tube to LIS. Down to surgery at 1020 and returned from PACU at 1400. Alert and oriented, RA in the upper 90s, BP 180s systolic initally but now down to the 160s systolic. Dilaudid IV given for pt report of abdominal pain. 3 lap sites from mid-abdomen to the the right side, incision to umbilicus, all intact, skin glue in place, open to air. Tolerated clear liquid diet without issue, up to bathroom SBA. Call light within reach, using appropriately to make needs known.
[2025-04-16] MEDS: metroNIDAZOLE 500 MG/100 ML PIGGYBACK 100 MG IV ×3 (01:24→15:27)
[2025-04-16] MEDS: SODIUM CHLORIDE 0.9% 1,000 ML 125 ML IV (01:25)
--- NOTE | 2025-04-16 07:49 | PM.PN.IH.1 ---
Subjective Subjective Date Patient Seen: 04/16/25 Time Patient Seen: 07:49 Interval history: POD#1 lap choley, normal cholangiogram, resection small bowel tumor Feels great Tolerated clears without n/v, wants more food, hungry Exam Vital Signs (past 8 hours): Oxygen Delivery Method Room Air Oxygen Flow Rate 0 Const General: comfortable Orientation: alert, awake and oriented x3 Resp Effort & Inspection: normal respiratory effort and able to speak in complete sentences Cardio Rate: regular rate GI Other: ABD: soft, tenderness appropriate for postop, incisions CDI Objective Labs 04/15/25 04:35 04/15/25 04:35 [facility] Medical History (Updated 04/16/25 @ 07:54 by Marquis Mendoza MD) Small bowel obstruction History of melena Chronic right hip pain Acid reflux Essential hypertension Peripheral vascular disease Hernia (1987) Colon polyps (2016) GERD (gastroesophageal reflux disease) Hemorrhoids Mumps Chicken pox Acne (1961) Eczema (1950) Surgical History (Updated 04/14/25 @ 19:11 by Harish Timmons MD) H/O vein stripping History of colonoscopy with polypectomy (2016) Anesthesia History of carpal tunnel repair (04/26/17) Status post hernia repair (1997) Family History Brother Age: 81 Crohn's disease without complication, unspecified gastrointestinal tract location Father Alzheimer's dementia without behavioral disturbance, unspecified timing of dementia onset Tobacco use disorder Brother No problems noted. Grandfather No problems noted. Mother Hip fracture Social History household members: significant other Smoking Status: Former smoker alcohol intake: current Assessment & Plan Assessment and plan (1) Cholecystitis with cholelithiasis: Qualifiers: Cholelithiasis location: gallbladder Cholecystitis acuity: acute Biliary obstruction: without biliary obstruction Qualified Code(s): K80.00 - Calculus of gallbladder with acute cholecystitis without obstruction Status: Acute (2) Small bowel mass: Status: Acute Plan POD#1 lap choley, normal cholangiogram, resection small bowel mass Tolerated clears, advance diet Likely home later today if tolerates diet Await small bowel path Time-Based Coding :: [TOTAL MINUTES] spent with patient and on the chart (including review of chart, obtaining history, exam, reviewing outside data, placing orders, documenting exam and treatment plan, and counseling patient) on [DATE]. Quality VTE Deep Vein Thrombosis/Pulmonary Embolism Present on Admission: No IH PROFEE Field Sales Manager Document charge(s): Yes Charge Codes Subsequent inpatient/observation care: [id number]
[2025-04-16] MEDS: ENOXAPARIN 40 MG/0.4 ML SYRINGE SUBCUT (09:13)
[2025-04-16] MEDS: PANTOPRAZOLE DR 20 MG TABLET PO (09:13)
[2025-04-16 09:16] VITALS: BP 191/77; PULSE 74; RESP 18; O2SAT 96
--- NOTE | 2025-04-16 12:33 | CM.DPNOTE ---
DCP Continued: Reviewed EMR and team rounds for pt?s medical status. Per surgeon, pt progressing well after surgery, advancing diet, and awaiting pathology of tumor that was resected in surgery (possibly could be reviewed outpatient). Per Hospitalist, pt suspected to discharge home today, 04/16 if still feeling well. No discharge needs identified at this time. Plan: Anticipating discharge home with partner to transport on 04/16 or when medically cleared. CM Team will continue to follow for coordination of discharge plans. LUZ Schaeffer
[2025-04-16] MEDS: cefTRIAXone 2,000 MG in SODIUM CHLORIDE 0.9% 100 ML 200 MG IV (14:46)
--- NOTE | 2025-04-16 15:48 | P.DS_ITS ---
History of Present Illness History of Present Illness Date Patient Seen: 04/16/25 Time Patient Seen: 15:48 Chief complaint: Abdominal Pain Narrative: Admitted with acute cholecystitis/SBO Discharge Providers Provider Date of admission: 04/14/25 07:31 Discharge Date: 04/16/25 Primary care physician: Eze Carranza MD Consults: 04/14/25 07:21 Consult to General Surgery Stat Comment: Consulting Provider: Marquis Mendoza Reason for consultation: sbo Has provider been notified: Yes Discharge provider: Marquis Mendoza MD Summary Hospital Course Discharge Diagnosis: Acute cholecystitis, small bowel tumor Hospital Course: Admitted with SBO, found to have acute cholecystitis. 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 Patient tolerated clear liquids that night and regular later same afternoon so was discharged. See d/c instructions. Status at Discharge Cognitive/behavioral status at discharge: oriented Functional status at discharge: independent ambulation Overall status at discharge: patient is progressing back to baseline Time Spent with Patient Time spent: Greater than 30 minutes Exam Vital Signs (past 8 hours): - 04/16/25 08:00 04/16/25 09:16 Pulse Rate 74 Respiratory Rate 18 Blood Pressure 191/77 H Pulse Oximetry 96 Oxygen Delivery Method Room Air Oxygen Flow Rate 0 Oxygen Delivery Method Room Air Oxygen Flow Rate 0 Narrative Exam Narrative: Const General: healthy appearing, comfortable and no acute distress Orientation: alert and oriented x3 HENMT Ears: hearing grossly normal bilaterally Eyes Visual Montoya: normal visual montoya by confrontation Conjunctivae: conjunctivae normal Sclera: sclerae normal EOM: EOM intact bilaterally Resp Effort & Inspection: normal respiratory effort and able to speak in complete sentences Cardio Rate: regular rate GI Palpation: soft, incisions CDI, appropriate tenderness Extrem General: no pedal edema and no calf tenderness Objective Labs 04/15/25 04:35 04/15/25 04:35 [facility] Medical History (Updated 04/16/25 @ 07:54 by Marquis Mendoza MD) Small bowel obstruction History of melena Chronic right hip pain Acid reflux Essential hypertension Peripheral vascular disease Hernia (1987) Colon polyps (2016) GERD (gastroesophageal reflux disease) Hemorrhoids Mumps Chicken pox Acne (1961) Eczema (1950) Surgical History (Updated 04/14/25 @ 19:11 by Harish Timmons MD) H/O vein stripping History of colonoscopy with polypectomy (2016) Anesthesia History of carpal tunnel repair (04/26/17) Status post hernia repair (1997) Family History Brother Age: 81 Crohn's disease without complication, unspecified gastrointestinal tract location Father Alzheimer's dementia without behavioral disturbance, unspecified timing of dementia onset Tobacco use disorder Brother No problems noted. Grandfather No problems noted. Mother Hip fracture Social History household members: significant other Smoking Status: Former smoker alcohol intake: current Discharge Assessment & Plan Assessment and Plan Assessment: S/P laparoscopic cholecystectomy, small bowel resection for acute cholecystitis, small bowel resection Plan of Treatment: Home today F/U in office in 2 weeks Discharge Plan Discharge Plan Patient Disposition: Home Provider Discharge Comment: Diet as tolerated Shower OK, no swimming for 2 weeks No lifting > 10lbs for 6 weeks to reduce risk for hernia Stitches dissolving Skin glue will work itself off in 1-2 weeks Will notify you when we receive report from small bowel mass Please call [phone] to make office appointment in 2 weeks Discharge orders & Medications Prescriptions: New hydrocodone-acetaminophen 5-325 mg tablet 1 tab PO Q4H PRN (Reason: pain) Qty: 10 0RF Continued Zepbound 5 mg/0.5 mL solution 5 mg SUBCUT QWEEK Qty: 2 0RF Zepbound 7.5 mg/0.5 mL solution 7.5 mg SUBCUT QWEEK Qty: 2 1RF omeprazole 20 mg capsule,delayed release(DR/EC) 20 mg PO DAILY naproxen sodium [Aleve] 220 mg tablet 440 mg PO DAILY PRN (Reason: pain) Follow up/Referrals: Eze Carranza MD [Primary Care Provider, Family Practice] Marquis Mendoza MD [Physician, General Surgery] - 2 Weeks Diet/Activity/Treatments Diet: Diet as Tolerated Skin/Wound/Dressing Care Report to your healthcare provider any signs of infection, such as:: chills, fever, night sweats, increased pain, unusual drainage and unusual redness Visit Report/Discharge Packet Instructions: DI for Prescription Opioid Use, DI for Laparoscopic Cholecystectomy Stand Alone Forms: Patient Portal/API, Stroke Signs & Symptoms Discharge Data Primary Care Provider: Eze Carranza Quality VTE Deep Vein Thrombosis/Pulmonary Embolism Present on Admission: No IH PROFEE Charge Codes Discharge inpatient/observation: [id number]
--- NOTE | 2025-04-16 15:51 | P.DS_ITS ---
History of Present Illness History of Present Illness Date Patient Seen: 04/16/25 Chief complaint: Abdominal Pain Narrative: Chief complaint: Abdominal pain small-bowel obstruction and cholecystitis History of present illness: 04/14: 74-year-old male with a history of small-bowel obstruction, left inguinal hernia repair, macular degeneration, Zepbound for weight loss and osteoarthritis who presents with nausea/vomiting/abdominal pain beginning at 11:00 p[address] last night. The CT shows a small bowel obstruction and the ultrasound shows cholelithiasis/cholecystitis with a 1.2 cm stone impacted in the cystic duct/common bile duct junction. The white blood count is 16.6. The lipase is 121. The total protein is 8.9. Surgery has seen him and is treating him with NG tube aspiration, bowel rest and antibiotics for the cholecystitis also. Hospital course: 04/15: Patient underwent cholecystectomy and resection of the distal small bowel tumor: Procedure: Laparoscopic cholecystectomy with intra-operative cholangiogram, resection of small bowel tumor Same procedure(s) as scheduled: Yes 04/16: No complications postoperatively patient tolerating diet passing flatus having bowel movement discharged home Assessment and plan: Small-bowel obstruction, present on admission. Active. -likely related to cholelithiasis/cholecystitis and distal ileum small bowel tumor found during surgery. -laparoscopic cholecystectomy/resection of small bowel tumor and terminal ileum 04/15 Disposition: Discharge to home Time based billing: * 35 minutes were involved in the discharge of this patient including [id number] evaluation review of notes in objective laboratory and imaging Discharge Providers Provider Date of admission: 04/14/25 07:31 Discharge Date: 04/16/25 Primary care physician: Eze Carranza MD Consults: 04/14/25 07:21 Consult to General Surgery Stat Comment: Consulting Provider: Marquis Mendoza Reason for consultation: sbo Has provider been notified: Yes Discharge provider: Jero Krishnan MD Exam Vital Signs (past 8 hours): - 04/16/25 08:00 04/16/25 09:16 Pulse Rate 74 Respiratory Rate 18 Blood Pressure 191/77 H Pulse Oximetry 96 Oxygen Delivery Method Room Air Oxygen Flow Rate 0 Oxygen Delivery Method Room Air Oxygen Flow Rate 0 Objective Labs 04/15/25 04:35 04/15/25 04:35 [facility] Medical History (Updated 04/16/25 @ 07:54 by Marquis Mendoza MD) Small bowel obstruction History of melena Chronic right hip pain Acid reflux Essential hypertension Peripheral vascular disease Hernia (1987) Colon polyps (2017) GERD (gastroesophageal reflux disease) Hemorrhoids Mumps Chicken pox Acne (1961) Eczema (1950) Surgical History (Updated 04/14/25 @ 19:11 by Harish Timmons MD) H/O vein stripping History of colonoscopy with polypectomy (2016) Anesthesia History of carpal tunnel repair (04/26/17) Status post hernia repair (1997) Family History Brother Age: 81 Crohn's disease without complication, unspecified gastrointestinal tract location Father Alzheimer's dementia without behavioral disturbance, unspecified timing of dementia onset Tobacco use disorder Brother No problems noted. Grandfather No problems noted. Mother Hip fracture Social History household members: significant other Smoking Status: Former smoker alcohol intake: current Discharge Assessment & Plan Assessment and Plan Assessment: S/P laparoscopic cholecystectomy, small bowel resection for acute cholecystitis, small bowel resection Plan of Treatment: Home today F/U in office in 2 weeks Discharge Plan Discharge Plan Patient Disposition: Home Provider Discharge Comment: Diet as tolerated Shower OK, no swimming for 2 weeks No lifting > 10lbs for 6 weeks to reduce risk for hernia Stitches dissolving Skin glue will work itself off in 1-2 weeks Will notify you when we receive report from small bowel mass Please call [phone] to make office appointment in 2 weeks Discharge orders & Medications Prescriptions: New hydrocodone-acetaminophen 5-325 mg tablet 1 tab PO Q4H PRN (Reason: pain) Qty: 10 0RF Continued Zepbound 5 mg/0.5 mL solution 5 mg SUBCUT QWEEK Qty: 2 0RF Zepbound 7.5 mg/0.5 mL solution 7.5 mg SUBCUT QWEEK Qty: 2 1RF omeprazole 20 mg capsule,delayed release(DR/EC) 20 mg PO DAILY naproxen sodium [Aleve] 220 mg tablet 440 mg PO DAILY PRN (Reason: pain) Follow up/Referrals: Eze Carranza MD [Primary Care Provider, Family Practice] Marquis Mendoza MD [Physician, General Surgery] - 2 Weeks Visit Report/Discharge Packet Stand Alone Forms: Patient Portal/API, Stroke Signs & Symptoms Discharge Data Primary Care Provider: Eze Carranza VTE Deep Vein Thrombosis/Pulmonary Embolism Present on Admission: No
--- NOTE | 2025-04-16 16:37 | PC.NURSE ---
Discharge Note Patient discharged to home at 1635, escorted to hospital exit by staff member, pt drove self to hospital. Alert and oriented x3, no narcotics administered this shift to patient, denies pain and declines pain medication. Independently walking in halls prior to discharge. Written and verbal d/c instructions given on lap [place], activity restrictions, alcohol restrictions, hydrocodone, follow up, and symptoms of concern. Acknowledged understanding. All belongings with pt including cell phone, wallet, keys, shoes, and clothing.
== END 2025-04-16 16:35 | disposition home or self-care (01) | DRG 330 ==
LOC: ED 06:51 → AC 07:58 → ICU 10:53 → AC 04-16 10:27 → ICU 04-16 10:27
PROVIDERS: Family Medicine; Surgery; Admitting Provider Family Medicine; Emergency Provider Emergency Medicine; PCP Family Medicine; Referring Provider Emergency Medicine; Visit Provider Family Medicine
PROC: 0FT44ZZ Resection of Gallbladder, Percutaneous Endoscopic Approach (ICD-10-PCS; CPT 47563; principal; 2025-04-15 16:15)
DX: K56.51 Intestinal adhesions [bands], with partial obstruction (principal); K80.12 Calculus of gallbladder with acute and chronic cholecystitis without obstruction; K82.8 Other specified diseases of gallbladder; D49.0 Neoplasm of unspecified behavior of digestive system; K21.9 Gastro-esophageal reflux disease without esophagitis; M19.90 Unspecified osteoarthritis, unspecified site; Z87.891 Personal history of nicotine dependence
CPT/HCPCS: 36415; 44120; 47563; 71045; 74177; 74300; 76705; 80053; 83605; 83690; 84484; 85025; 87040; 87797; 93005; 96374; 96375; 99233; 99284; J0131; J0330; J0696; J1100; J1171; J1650; J2272; J2405; J2704; J3010; J7030; J7050; J7120; Q9967

== ENCOUNTER 2025-04-21 15:57 | Observation (INO) | payer MEDICARE, SELFPAY ==
[2025-04-14 15:39] VITALS: BMI 33.6
[2025-04-21] VITALS (11 sets, daily range): BP systolic 138–160; BP diastolic 66–73; PULSE 62–74; RESP 15–23; TEMP 36.1–36.6; O2SAT 98–100; BMI 32.9; BMI 32.8
--- NOTE | 2025-04-21 16:18 | ED_ITS ---
HPI - GI Bleed
--- NOTE | 2025-04-21 16:18 | ED.GIBLEED ---
HPI - GI Bleed General Chief complaint: GI Bleed Stated complaint: Post op, gi bleed Time Seen by Provider: 04/21/25 16:11 Source: patient Mode of arrival: Ambulatory History of Present Illness HPI Narrative: 74y M recent hx of SBO, L inguinal hernia, macular degeneration, zepbound for weight loss, and OA was admitted and discharged for laparoscopic cholecystectomy resection of small bowel tumor presents with blood clots with movements since being discharged numerous bouts for the past 2 days. He missed his call from the surgeon we attempted to call him back but came in today. He denies any headache dizziness chest pain shortness breath hematuria back pain nausea vomiting constipation diarrhea fever chills body aches. He denies any denies any NSAID use or being on any anticoagulants. Other than what is stated 14 point review of system is negative. Related Data Home Medications ?Medication ?Instructions ?Recorded ?Confirmed omeprazole 20 mg capsule,delayed 20 mg PO DAILY 10/19/20 04/17/25 release naproxen sodium 220 mg tablet 440 mg PO DAILY PRN pain 04/14/25 04/17/25 (Aleve) Previous Rx's ?Medication ?Instructions ?Recorded tirzepatide (weight loss) 5 mg/0.5 5 mg (0.5 mL) SUBCUT QWEEK #2 mL 12/19/24 mL subcutaneous solution (Zepbound) tirzepatide (weight loss) 7.5 7.5 mg (0.5 mL) SUBCUT QWEEK #2 mL 12/26/24 mg/0.5 mL subcutaneous solution (Zepbound) hydrocodone 5 mg-acetaminophen 325 1 tab PO Q4H PRN pain #10 tabs 04/16/25 mg tablet Allergies Allergy/AdvReac Type Severity Reaction Status Date / Time No Known Drug Allergies Allergy Verified 04/14/25 06:19 Review of Systems Review of Systems ROS Unobtainable: All systems reviewed & are unremarkable except as noted in HPI and below Patient History Medical History (Updated 04/16/25 @ 07:54 by Marquis Mendoza MD) Small bowel obstruction History of melena Chronic right hip pain Acid reflux Essential hypertension Peripheral vascular disease Hernia (1987) Colon polyps (2016) GERD (gastroesophageal reflux disease) Hemorrhoids Mumps Chicken pox Acne (1961) Eczema (1950) Surgical History (Updated 04/14/25 @ 19:11 by Harish Timmons MD) H/O vein stripping History of colonoscopy with polypectomy (2016) Anesthesia History of carpal tunnel repair (04/26/17) Status post hernia repair (1997) Family History Brother Age: 81 Crohn's disease without complication, unspecified gastrointestinal tract location Father Alzheimer's dementia without behavioral disturbance, unspecified timing of dementia onset Tobacco use disorder Brother No problems noted. Grandfather No problems noted. Mother Hip fracture Social History household members: significant other alcohol intake: current tobacco type: cigarettes alcohol intake frequency: 0-2 drinks per day Exam Narrative Exam Narrative: GENERAL: [74] year old patient appears stated age. Well-developed patient, in mild distress. HEAD: Atraumatic. Normocephalic. EYES: Pupils equal round and reactive. Extraocular motions intact. No scleral icterus. No injection or drainage. ENT: Nose without bleeding, purulent drainage. Throat without erythema, tonsillar hypertrophy or exudate. Airway patent. NECK: Trachea midline. Non tender CARDIOVASCULAR: Regular rate and rhythm without murmurs, gallops, or rubs. RESPIRATORY: Clear to auscultation. Breath sounds equal bilaterally. No wheezes, rales, or rhonchi. GASTROINTESTINAL: Abdomen soft, non-tender, nondistended. Rectal: No anal fissure hemorrhoids seen guaiac-positive EXTREMITIES: No edema or joint tenderness. BACK: Nontender without deformity or crepitance. No flank tenderness. NEURO: AOx3. SKIN: No rash or erythema of visible areas Initial Vital Signs Initial Vital Signs: Vital Signs Temperature 97.9 F 04/21/25 16:07 Pulse Rate 74 04/21/25 16:07 Respiratory Rate 18 04/21/25 16:07 Blood Pressure 145/69 H 04/21/25 16:07 Pulse Oximetry 99 04/21/25 16:07 Oxygen Delivery Method Room Air 04/21/25 16:07 Course Orders Ordered: ED Orders 04/21/25 16:19 Complete Blood Count AUTO DIFF Stat Comprehensive Metabolic Panel Stat Lipase Stat PTT Partial Thromboplastin Delvis Stat Prothrombin Time INR Stat Type and Screen Stat 04/21/25 16:36 CT abdomen pelvis w con Stat 04/21/25 16:37 EKG-12 Lead Stat Ondansetron HCl (Ondansetron 4 Mg/2 Ml Inj) 4 mg IV NOW PRN PRN Reason: Nausea And Vomiting Ondansetron HCl (Ondansetron 4 Mg Odt) 4 mg PO NOW PRN PRN Reason: Nausea And Vomiting Discontinued Medications Ondansetron HCl (Ondansetron 4 Mg Odt) 4 mg PO NOW PRN PRN Reason: Nausea And Vomiting Ondansetron HCl (Ondansetron 4 Mg/2 Ml Inj) 4 mg IV NOW PRN PRN Reason: Nausea And Vomiting Vital Signs Vital signs: Vital Signs - 8 hr 04/21/25 16:07 04/21/25 16:31 04/21/25 16:32 Temperature 97.9 F Pulse Rate 74 70 Respiratory Rate 18 Blood Pressure 145/69 H Pulse Oximetry 99 99 99 Oxygen Delivery Method Room Air 04/21/25 16:32 04/21/25 17:00 04/21/25 17:11 Temperature Pulse Rate 66 62 Respiratory Rate 20 23 Blood Pressure 160/70 H Pulse Oximetry 98 99 Oxygen Delivery Method 04/21/25 17:11 04/21/25 17:30 04/21/25 17:30 Temperature Pulse Rate 63 Respiratory Rate 21 Blood Pressure 152/67 H 139/66 Pulse Oximetry 99 Oxygen Delivery Method 04/21/25 18:00 04/21/25 18:00 Temperature Pulse Rate 62 Respiratory Rate 16 Blood Pressure 143/68 H Pulse Oximetry 100 Oxygen Delivery Method MDM - GI Bleed Lab Data 04/21/25 16:19 04/21/25 16:19 Labs: Lab Results 04/21/25 Range/Units 16:19 WBC 6.0 (4.5-11.0) X10^3/uL RBC 3.62 L (4.5-5.9) X10^6/uL Hgb 11.6 L (13.5-17.5) g/dL Hct 33.6 L (41-53) % MCV 92.8 (80-100) fL MCH 32.1 (26-34) PG MCHC 34.6 (30-36) % RDW 12.8 (11.6-14.8) % Plt Count 206 (150-400) X10^3/uL Neut % (Auto) 41.7 L (50-75) % Lymph % (Auto) 37.1 (25-40) % Antelope % (Auto) 13.6 (3-14) % Eos % (Auto) 6.5 H (2-4) % Baso % (Auto) 1.1 (0-2) % Neut # (Auto) 2500 (5280-2482) /uL Lymph # (Auto) 2200 (5842-2324) /uL Antelope # (Auto) 800 (0-900) /uL Eos # (Auto) 400 (0-450) /uL Baso # (Auto) 100 (0-100) /uL PT 11.0 (9.4-12.5) SECONDS INR 1.0 (0.9-1.3) APTT 28 (25.1-36.5) SECONDS Sodium 136 L (137-145) mmol/L Potassium 4.1 (3.4-5.1) mmol/L Chloride 103 (98-107) mmol/L Carbon Dioxide 26 (22-32) mmol/L BUN 17 (9-20) mg/dL Creatinine 0.98 (0.66-1.25) mg/dL Estimated GFR > 60 (>60) mL/min BUN/Creatinine Ratio 17.3 (6-22) Glucose 116 H (70-99) mg/dL Calcium 9.0 (8.4-10.2) mg/dL Total Bilirubin 0.4 (0.2-1.3) mg/dL AST 31 (17-59) IU/L ALT 27 (<50) IU/L Alkaline Phosphatase 62 (38-126) U/L Total Protein 7.3 (6.3-8.2) g/dL Albumin 4.3 (3.5-5.0) g/dL Globulin 3.0 (1.7-4.1) g/dL Albumin/Globulin Ratio 1.4 (1.0-2.8) Lipase 126 (23-300) U/L Blood Type O Positive Antibody Screen Negative Point of Care Testing Stool Occult Blood Positive Imaging Data CT scan - abdomen/pelvis: Radiologist's Impression: [address] [address] [address] Scan Report Signed Patient: Fabian Westfall MR#: [id number] : 1950 Acct:[id number] Age/Sex: 74 / M Date of Service: 04/21/25 Loc: ED Accession Number: [id number] Procedure: CT abdomen pelvis w con Ordering Provider: Mike Villasenor D.O. PROCEDURE: CT ABDOMEN PELVIS W CON INDICATIONS: gi bleed TECHNIQUE: After the administration of intravenous contrast, axial sections acquired from the lung bases to the pubic symphysis. Coronal and sagittal reformats were performed. For radiation dose reduction, the following was used: automated exposure control, adjustment of mA and/or kV according to patient size. COMPARISON: [facility], CT, CT ABDOMEN PELVIS W CON, 04/14/2025, 6:43. FINDINGS: Image quality: Diagnostic. Lower Chest: No significant findings. ABDOMEN: Liver: No solid mass. Gallbladder: Interval cholecystectomy. Biliary ducts: No biliary dilation. Pancreas: No ductal dilation. Spleen: Size is within normal limits. Adrenal Glands: No adrenal nodules. Kidneys and Ureters: No hydronephrosis. No solid mass. No complex renal cystic lesion which requires follow up. Stomach and Bowel: Interval focal small-bowel resection with widely patent anastomosis and no residual or recurrent bowel obstruction noted. Bowel is otherwise unremarkable. Peritoneum: No abnormal intraperitoneal fluid. No free air. Normal appendix. Ventral Wall: No significant ventral hernia. Abdominal Nodes: No retroperitoneal or mesenteric adenopathy by size criteria. Vessels: Aorta and inferior vena cava are normal in size. PELVIS: Pelvic Organs: Unremarkable. Bladder: No bladder wall thickening, accounting for underdistention. Pelvic Nodes: No enlarged lymph nodes. Miscellaneous: No inguinal hernias are seen. Bones: No aggressive osseous abnormality. IMPRESSION: Expected recent postoperative appearance, status post gallbladder resection and small bowel resection with widely patent anastomosis. No residual or recurrent bowel obstruction noted. No acute process identified. Dictated by: Kyle Robertson M.D. on 04/21/2025 at 17:30 Approved by: Kyle Robertson M.D. on 04/21/2025 at 17:34 ECG Data Interpretation: NSR HR 65 MN 186 QRS [address]-t wave change Change from 04/14/25 MDM Narrative Medical decision making narrative: All lab work, vital signs, nurse triage note, medication list, previous ER visits, and all imaging studies reviewed. CT abdomen and pelvis showed expected recent postop her appearance status post gallbladder resection and small bowel resection with widely patent anastomosis. No residual recurrent bowel obstruction noted. No acute process identified. WBC 6.0 hemoglobin 11.6 platelets 206 INR 1.0 8136 potassium 4.1 chloride 103 CO2 26 BUN 17 creatinine 0.98 glucose 116 calcium 9 LFTs normal lipase 126. Case d/w surgeon on-call consult and to admit to hospitalist service. Case d/w who has frank accepted pt for inpatient admission. Discharge Plan Departure Prescriptions: No Action Zepbound 5 mg/0.5 mL solution 5 mg SUBCUT QWEEK Qty: 2 0RF Zepbound 7.5 mg/0.5 mL solution 7.5 mg SUBCUT QWEEK Qty: 2 1RF omeprazole 20 mg capsule,delayed release(DR/EC) 20 mg PO DAILY naproxen sodium [Aleve] 220 mg tablet 440 mg PO DAILY PRN (Reason: pain) hydrocodone-acetaminophen 5-325 mg tablet 1 tab PO Q4H PRN (Reason: pain) Qty: 10 0RF Referrals: Eze Carranza MD [Primary Care Provider, Family Practice]
[2025-04-21 16:29] LABS: Add Manual Diff / Slide Review NO; Hematocrit 33.6 % (41-53); Hemoglobin 11.6 g/dL (13.5-17.5); Lymphocytes Absolute Auto 2200 /uL (1100-4500); Mean Corpuscular HGB Conc 34.6 % (30-36); Mean Corpuscular Hemoglobin 32.1 PG (26-34); Mean Corpuscular Volume 92.8 fL (80-100); Platelet Count 206 X10^3/uL (150-400)
--- NOTE | 2025-04-21 16:36 | DI.CT.S_ITS ---
PROCEDURE: CT ABDOMEN PELVIS W CON
--- NOTE | 2025-04-21 16:37 | EKG_ITS ---
[facility]
[2025-04-21 16:38] LABS: INR 1.0 (0.9-1.3); Prothrombin Time 11.0 SECONDS (9.4-12.5)
[2025-04-21 16:40] LABS: PTT Partial Thromboplastin Tim 28 SECONDS (25.1-36.5)
[2025-04-21 16:42] LABS: Alanine Aminotransferase 27 IU/L (<50); Albumin 4.3 g/dL (3.5-5.0); Albumin Globulin Ratio 1.4 (1.0-2.8); Alkaline Phosphatase 62 U/L (38-126); Blood Urea Nitrogen 17 mg/dL (9-20); Calcium 9.0 mg/dL (8.4-10.2); Carbon Dioxide 26 mmol/L (22-32); Chloride 103 mmol/L (98-107); Estimated Glomerular Filt Rate > 60 mL/min (>60); Globulin 3.0 g/dL (1.7-4.1); Glucose 116 mg/dL (70-99); HEMOLYSIS < 15 (0-50); Potassium 4.1 mmol/L (3.4-5.1); Sodium 136 mmol/L (137-145); Total Protein 7.3 g/dL (6.3-8.2)
[2025-04-21 17:00] LABS: Lipase 126 U/L (23-300)
[2025-04-21] MEDS: PANTOPRAZOLE 40 MG VIAL IV (18:42)
[2025-04-21] MEDS: SODIUM CHLORIDE 0.9% 1,000 ML 100 ML IV (19:04)
--- NOTE | 2025-04-21 19:37 | P.CONS_ITS ---
History of Present Illness
--- NOTE | 2025-04-21 19:37 | PM.CN.IH.1 ---
History of Present Illness Consult details Date Patient Seen: 04/21/25 Time Patient Seen: 19:37 Chief complaint: Post op, gi bleed Reason for consult: Postoperative GI bleed Narrative: Called to evaluate this 74-year-old gentleman who presented to the emergency room this p.m. with complaints of ?cranberry colored? blood per rectum. The patient's history is significant for a laparoscopic cholecystectomy with resection of a distal, ileal small bowel tumor on April 15, 2025. An ilea anastomosis was performed at that time. The patient was discharged the following day. He reports that he had a normal bowel movement on the day following discharge. However, on April 18, 2025, he began having profuse bloody bowel movements. He states on Monday, he had 6 voluminous, bloody bowel movements. He continued to have episodic bloody bowel movements over the weekend. His last bowel movement was today and was according to the picture the patient showed me, filled with clots, but was not very voluminous. He reports no fever, nausea, vomiting, abdominal pain other than mild incisional tenderness, or melena. He notes he is quite weak. He states his appetite has been good but he has not eaten very much. He does note that 3-4 years ago, he was evaluated and diagnosed with a small-bowel obstruction that was treated nonsurgically. This was at another institution. He does not have obstructive symptoms at this time. Meds Home Medications and Allergies Home Medications ?Medication ?Instructions ?Recorded ?Confirmed ?Type omeprazole 20 mg capsule,delayed 20 mg PO DAILY 10/19/20 04/17/25 History release tirzepatide (weight loss) 5 mg/0.5 5 mg (0.5 mL) SUBCUT QWEEK #2 mL 12/19/24 04/17/25 Rx mL subcutaneous solution (Zepbound) tirzepatide (weight loss) 7.5 7.5 mg (0.5 mL) SUBCUT QWEEK #2 mL 12/26/24 04/17/25 Rx mg/0.5 mL subcutaneous solution (Zepbound) naproxen sodium 220 mg tablet 440 mg PO DAILY PRN pain 04/14/25 04/17/25 History (Aleve) hydrocodone 5 mg-acetaminophen 325 1 tab PO Q4H PRN pain #10 tabs 04/16/25 04/17/25 Rx mg tablet Allergies Allergy/AdvReac Type Severity Reaction Status Date / Time No Known Drug Allergies Allergy Verified 04/14/25 06:19 Review of Systems Review of Systems Narrative: A 12 point review of systems is negative except for that stated in the history of present illness Exam Vital Signs (past 8 hours): - 04/21/25 16:07 04/21/25 16:31 04/21/25 16:32 Temperature 97.9 F Pulse Rate 74 70 Respiratory Rate 18 Blood Pressure 145/69 H Pulse Oximetry 99 99 99 Oxygen Delivery Method Room Air 04/21/25 16:32 04/21/25 17:00 04/21/25 17:11 Temperature Pulse Rate 66 62 Respiratory Rate 20 23 Blood Pressure 160/70 H Pulse Oximetry 98 99 Oxygen Delivery Method 04/21/25 17:11 04/21/25 17:30 04/21/25 17:30 Temperature Pulse Rate 63 Respiratory Rate 21 Blood Pressure 152/67 H 139/66 Pulse Oximetry 99 Oxygen Delivery Method 04/21/25 18:00 04/21/25 18:00 Temperature Pulse Rate 62 Respiratory Rate 16 Blood Pressure 143/68 H Pulse Oximetry 100 Oxygen Delivery Method Oxygen Delivery Method Room Air Narrative Exam Narrative: Afebrile; vital signs stable Alert and oriented x4 Regular rate and rhythm without murmur Respirations clear to auscultation bilaterally; chest wall excursion symmetrical; no wheezes, rales, or rhonchi appreciated Abdomen protuberant; mild infraumbilical incisional tenderness appreciated; good bowel sounds; no peritoneal signs Rectal per ER physician revealed guaiac-positive stool with normal rectal tone Moves all extremities x4 Objective Labs 04/21/25 16:19 04/21/25 16:19 Labs: Laboratory Results - last 24 hr 04/21/25 16:19 WBC 6.0 RBC 3.62 L Hgb 11.6 L Hct 33.6 L MCV 92.8 MCH 32.1 MCHC 34.6 RDW 12.8 Plt Count 206 Neut % (Auto) 41.7 L Lymph % (Auto) 37.1 [place] % (Auto) 13.6 Eos % (Auto) 6.5 H Baso % (Auto) 1.1 Neut # (Auto) 2500 Lymph # (Auto) 2200 [place] # (Auto) 800 Eos # (Auto) 400 Baso # (Auto) 100 PT 11.0 INR 1.0 APTT 28 Sodium 136 L Potassium 4.1 Chloride 103 Carbon Dioxide 26 BUN 17 Creatinine 0.98 Estimated GFR > 60 BUN/Creatinine Ratio 17.3 Glucose 116 H Calcium 9.0 Total Bilirubin 0.4 AST 31 ALT 27 Alkaline Phosphatase 62 Total Protein 7.3 Albumin 4.3 Globulin 3.0 Albumin/Globulin Ratio 1.4 Lipase 126 Blood Type O Positive Antibody Screen Negative PFSH Medical History (Updated 04/16/25 @ 07:54 by Marquis Mendoza MD) Small bowel obstruction History of melena Chronic right hip pain Acid reflux Essential hypertension Peripheral vascular disease Hernia (1987) Colon polyps (2016) GERD (gastroesophageal reflux disease) Hemorrhoids Mumps Chicken pox Acne (1961) Eczema (1950) Surgical History (Updated 04/14/25 @ 19:11 by Harish Timmons MD) H/O vein stripping History of colonoscopy with polypectomy (2016) Anesthesia History of carpal tunnel repair (04/26/17) Status post hernia repair (1997) Family History Brother Age: 81 Crohn's disease without complication, unspecified gastrointestinal tract location Father Alzheimer's dementia without behavioral disturbance, unspecified timing of dementia onset Tobacco use disorder Brother No problems noted. Grandfather No problems noted. Mother Hip fracture Social History household members: significant other Tobacco & Substance Use alcohol intake: current Assessment & Plan Assessment & Plan narrative: 74-year-old gentleman status post laparoscopic cholecystectomy with resection of distal ileal mass with ileo-ileal anastomosis, now with postoperative GI bleed -patient to be admitted per hospitalist; serial labs to be performed. -patient will be made NPO with hydration per IV -we will notify Dr. Mendoza of patient's admission in the a.m. -I appreciate the opportunity to participate in the care of this patient Time-Based Coding :: [TOTAL MINUTES] spent with patient and on the chart (including review of chart, obtaining history, exam, reviewing outside data, placing orders, documenting exam and treatment plan, and counseling patient) on [DATE]. PROFEE Charge Codes Inpatient or Observation consultation: 76916
--- NOTE | 2025-04-21 23:15 | P.HP_ITS ---
History of Present Illness
--- NOTE | 2025-04-21 23:15 | PM.HP.1 ---
History of Present Illness History of Present Illness Chief complaint: Post op, gi bleed Narrative: 74 years old male with history of hypertension, GERD, PVD, presented to the ER with rectal bleed. 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 Denies any fever, nausea, vomiting, abdominal pain, hematemesis, chest pain, shortness of breath or dysuria. History of small bowel obstruction around 4 years ago. Laboratory shows WBC 6, H&H 11.6/33.6, platelets 206, sodium 136, potassium 4.1, creatinine 0.98, blood sugar 116, LFT negative, lipase 126. Abdominal CT scan shows expected recent postoperative appearance, status post gallbladder resection and small bowel resection with widely patent anastomosis. EKG shows normal sinus rhythm of 65. Case was discussed with surgery on-call and recommended admission and n.p.o. after midnight. He was given Protonix 40 mg IV in the ER. [facility] Medical History (Updated 04/21/25 @ 22:41 by Dede Mott RN) Small bowel obstruction History of melena Chronic right hip pain Acid reflux Essential hypertension Peripheral vascular disease Hernia (1987) Colon polyps (2016) GERD (gastroesophageal reflux disease) Hemorrhoids Mumps Chicken pox Acne (1961) Eczema (1950) Surgical History (Updated 04/14/25 @ 19:11 by Harish Timmons MD) H/O vein stripping History of colonoscopy with polypectomy (2016) Anesthesia History of carpal tunnel repair (04/26/17) Status post hernia repair (1997) Family History Brother Age: 81 Crohn's disease without complication, unspecified gastrointestinal tract location Father Alzheimer's dementia without behavioral disturbance, unspecified timing of dementia onset Tobacco use disorder Brother No problems noted. Grandfather No problems noted. Mother Hip fracture Social History household members: significant other Smoking Status: Former smoker alcohol intake: current Meds Home Medications and Allergies Home Medications ?Medication ?Instructions ?Recorded ?Confirmed ?Type omeprazole 20 mg capsule,delayed 20 mg PO DAILY 10/19/20 04/21/25 History release tirzepatide (weight loss) 5 mg/0.5 5 mg (0.5 mL) SUBCUT QWEEK #2 mL 12/19/24 04/21/25 Rx mL subcutaneous solution (Zepbound) naproxen sodium 220 mg tablet 440 mg PO DAILY PRN pain 04/14/25 04/21/25 History (Aleve) Allergies Allergy/AdvReac Type Severity Reaction Status Date / Time No Known Drug Allergies Allergy Verified 04/14/25 06:19 Review of Systems Review of Systems ROS: Yes All systems reviewed with the patient and are negative except as otherwise documented Constitutional Constitutional: Reports as per HPI and Reports system reviewed and no additional complaints, except as documented Eyes Eyes: Reports as per HPI and Reports system reviewed and no additional complaints, except as documented ENT Ears, Nose, Mouth, and Throat: Yes as per HPI and Yes system reviewed and no additional complaints, except as documented Cardiovascular Cardiovascular: Reports system reviewed and no additional complaints, except as documented Respiratory Respiratory: Reports system reviewed and no additional complaints, except as documented Gastrointestinal Gastrointestinal: Reports system reviewed and no additional complaints, except as documented Genitourinary Genitourinary: Reports system reviewed and no additional complaints, except as documented Musculoskeletal Musculoskeletal: Reports system reviewed and no additional complaints, except as documented, Reports abnormal gait and Reports numbness Neurologic Neurologic: Reports system reviewed and no additional complaints, except as documented, Reports abnormal gait, Reports confusion and Reports numbness Psychiatric Psychiatric: Reports system reviewed and no additional complaints, except as documented and Reports confusion Exam Vital Signs (past 8 hours): - 04/21/25 16:07 04/21/25 16:31 04/21/25 16:32 Temperature 97.9 F Pulse Rate 74 70 Respiratory Rate 18 Blood Pressure 145/69 H Pulse Oximetry 99 99 99 Oxygen Delivery Method Room Air 04/21/25 16:32 04/21/25 17:00 04/21/25 17:11 Temperature Pulse Rate 66 62 Respiratory Rate 20 23 Blood Pressure 160/70 H Pulse Oximetry 98 99 Oxygen Delivery Method 04/21/25 17:11 04/21/25 17:30 04/21/25 17:30 Temperature Pulse Rate 63 Respiratory Rate 21 Blood Pressure 152/67 H 139/66 Pulse Oximetry 99 Oxygen Delivery Method 04/21/25 18:00 04/21/25 18:00 04/21/25 18:30 Temperature Pulse Rate 62 62 Respiratory Rate 16 Blood Pressure 143/68 H Pulse Oximetry 100 99 Oxygen Delivery Method 04/21/25 18:30 04/21/25 19:00 04/21/25 19:00 Temperature Pulse Rate 65 Respiratory Rate 15 Blood Pressure 146/73 H 157/73 H Pulse Oximetry 100 Oxygen Delivery Method 04/21/25 19:49 04/21/25 21:00 04/21/25 21:14 Temperature 97.0 F L Pulse Rate 68 66 Respiratory Rate 19 18 Blood Pressure 150/72 H 138/67 Pulse Oximetry 100 100 Oxygen Delivery Method Room Air Room Air Oxygen Delivery Method Room Air Const General: cooperative, comfortable and well developed Orientation: alert and oriented x3 HENMT Head: normal to inspection, normocephalic and atraumatic Face and sinus: normal facial exam Mouth: oral mucosae normal and moist mucous membranes Throat: posterior oropharynx normal Eyes General: appearance normal, both eyes and all related structures Pupils: PERRL EOM: EOM intact bilaterally Neck Neck: normal visual inspection and full ROM Chest Chest: normal inspection of the chest Resp Effort & Inspection: normal respiratory effort and able to speak in complete sentences Auscultation: clear to auscultation bilaterally Cardio Palpation: normal PMI Rate: regular rate Rhythm: regular rhythm Heart Sounds: S1 normal and S2 normal GI Inspection: normal to inspection Palpation: soft and no hepatosplenomegaly Auscultation: normal bowel sounds Skin General: no rashes or lesions noted Lesions: no lesions Rashes: no rashes Trauma: no lacerations or abrasions Neuro General: patient alert, patient awake, patient oriented x3 and no focal motor deficits Cranial Nerves: CN's II-XI intact bilaterally Cognition: normal cognition Speech: speech normal Gait: normal gait Motor: muscle tone normal throughout Sensory Exam: no sensory deficits noted Extrem General: full ROM and no calf tenderness Psych Appearance: grossly normal Mental Status: mental status grossly normal Speech and Movement: speech and movement normal Objective Labs 04/21/25 16:19 04/21/25 16:19 Labs: Laboratory Results - last 24 hr 04/21/25 16:19 WBC 6.0 RBC 3.62 L Hgb 11.6 L Hct 33.6 L MCV 92.8 MCH 32.1 MCHC 34.6 RDW 12.8 Plt Count 206 Neut % (Auto) 41.7 L Lymph % (Auto) 37.1 [place] % (Auto) 13.6 Eos % (Auto) 6.5 H Baso % (Auto) 1.1 Neut # (Auto) 2500 Lymph # (Auto) 2200 [place] # (Auto) 800 Eos # (Auto) 400 Baso # (Auto) 100 PT 11.0 INR 1.0 APTT 28 Sodium 136 L Potassium 4.1 Chloride 103 Carbon Dioxide 26 BUN 17 Creatinine 0.98 Estimated GFR > 60 BUN/Creatinine Ratio 17.3 Glucose 116 H Calcium 9.0 Total Bilirubin 0.4 AST 31 ALT 27 Alkaline Phosphatase 62 Total Protein 7.3 Albumin 4.3 Globulin 3.0 Albumin/Globulin Ratio 1.4 Lipase 126 Blood Type O Positive Antibody Screen Negative Assessment & Plan Assessment & Plan narrative: Acute lower GI bleeding. Status post laparoscopic cholecystectomy and small bowel resection with anastomosis on May 16, 2025. -Monitor H and H closely; will transfuse depending on dropping hemoglobin and hematocrit and hemodynamic status. -Keep patient NPO -IV fluids - Pain medications and antiemetics as needed - Restart Protonix 20 mg daily -Monitor hemodynamics - Surgery consulted. I performed this consultation using real-time telehealth tools, including a live video connection between my location and the patient's location. As the provider for this telehealth service, I attest that I introduced myself to the patient, provided my credentials, disclosed my location, and determined that, based on a review of the patients chart and/or a discussion with members of the patient's treatment team, telemedicine via a real-time, two-way, interactive audio and video platform is an appropriate and effective means of providing this service. The patient and I mutually agree that this visit is appropriate for telemedicine as well. Disclaimer Note: To increase efficiency, your provider may have prepared this document using voice recognition technology. In that case, if a word or phrase is confusing, or does not make sense, this is likely due to a recognition error within the program which was not discovered during the provider?s review. If you believe an error has occurred, please notify your provider?s office at your earliest convenience, so we can correct any mistakes. Time-Based Coding :: [TOTAL MINUTES] spent with patient and on the chart (including review of chart, obtaining history, exam, reviewing outside data, placing orders, documenting exam and treatment plan, and counseling patient) on [DATE]. Quality VTE Deep Vein Thrombosis/Pulmonary Embolism Present on Admission: No MIPS - Admit I confirm the patient?s Advance Care Plan is present, Code status is documented, Surrogate decision maker is in patient?s record [If Yes, STOP here]: Yes MIPS - Meds 'Current medications' to include all prescriptions, [id number] products, herbals, cannabis/cannabidiol products, and vitamin/mineral/dietary (nutritional) supplements. I have utilized all available resources to obtain, update, or review the patient?s current medications. [If Yes, STOP here]: Yes
[2025-04-22 00:11] VITALS: BP 172/74; PULSE 71; RESP 16; TEMP 35.9; O2SAT 97
[2025-04-22 00:23] LABS: Appearance Urine UA CLEAR; Bilirubin Urine UA NEGATIVE (NEGATIVE); Color Urine UA YELLOW; Glucose Urine UA NEGATIVE (Negative); Ketones Urine UA NEGATIVE (NEGATIVE); Leukocyte Esterase Urine UA NEGATIVE (NEGATIVE); Nitrite Urine UA NEGATIVE (Negative); Occult Blood Urine UA NEGATIVE (Negative); Protein Urine UA NEGATIVE (Negative); Specific Gravity Urine UA 1.015 (1.000-1.035); Urobilinogen Urine UA 0.2 E.U./dL (0.2); pH Urine UA 7.0 (4.5-8.0)
[2025-04-22 00:44] LABS: Culture Indicated Urine Cult Not Indicated
[2025-04-22 05:00] VITALS: BP 124/59; PULSE 68; RESP 16; TEMP 36.9; O2SAT 98
[2025-04-22] MEDS: SODIUM CHLORIDE 0.9% 1,000 ML 100 ML IV (05:08)
[2025-04-22 05:45] LABS: Add Manual Diff / Slide Review NO; Hematocrit 32.3 % (41-53); Hemoglobin 11.4 g/dL (13.5-17.5); Lymphocytes Absolute Auto 1700 /uL (1100-4500); Mean Corpuscular HGB Conc 35.2 % (30-36); Mean Corpuscular Hemoglobin 32.3 PG (26-34); Mean Corpuscular Volume 91.8 fL (80-100); Platelet Count 187 X10^3/uL (150-400)
[2025-04-22 05:46] LABS: Alanine Aminotransferase 21 IU/L (<50); Albumin 3.9 g/dL (3.5-5.0); Albumin Globulin Ratio 1.4 (1.0-2.8); Alkaline Phosphatase 57 U/L (38-126); Blood Urea Nitrogen 13 mg/dL (9-20); Calcium 8.7 mg/dL (8.4-10.2); Carbon Dioxide 24 mmol/L (22-32); Chloride 106 mmol/L (98-107); Estimated Glomerular Filt Rate > 60 mL/min (>60); Globulin 2.8 g/dL (1.7-4.1); Glucose 105 mg/dL (70-99); HEMOLYSIS < 15 (0-50); Potassium 4.1 mmol/L (3.4-5.1); Sodium 136 mmol/L (137-145); Total Protein 6.7 g/dL (6.3-8.2)
--- NOTE | 2025-04-22 07:34 | PM.PN.1 ---
Subjective Subjective Date Patient Seen: 04/22/25 Interval history: 74 years old male with history of hypertension, GERD, PVD, presented to the ER with rectal bleed. 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 Denies any fever, nausea, vomiting, abdominal pain, hematemesis, chest pain, shortness of breath or dysuria. History of small bowel obstruction around 4 years ago. Laboratory shows WBC 6, H&H 11.6/33.6, platelets 206, sodium 136, potassium 4.1, creatinine 0.98, blood sugar 116, LFT negative, lipase 126. Abdominal CT scan shows expected recent postoperative appearance, status post gallbladder resection and small bowel resection with widely patent anastomosis. EKG shows normal sinus rhythm of 65. Case was discussed with surgery on-call and recommended admission and n.p.o. after midnight. He was given Protonix 40 mg IV in the ER. Assessment & Plan Assessment & Plan narrative: Acute lower GI bleeding. Status post laparoscopic cholecystectomy and small bowel resection with anastomosis on May 16, 2025. -Monitor H and H closely; will transfuse depending on dropping hemoglobin and hematocrit and hemodynamic status. -Keep patient NPO -IV fluids - Pain medications and antiemetics as needed - Restart Protonix 20 mg daily -Monitor hemodynamics - Surgery consulted. Exam Vital Signs (past 8 hours): - 04/22/25 00:11 04/22/25 05:00 Temperature 96.7 F L 98.5 F Pulse Rate 71 68 Respiratory Rate 16 16 Blood Pressure 172/74 H 124/59 L Pulse Oximetry 97 98 Oxygen Flow Rate 0 0 Oxygen Delivery Method Room Air Oxygen Flow Rate 0 Objective Labs 04/22/25 05:08 04/22/25 05:08 Labs: Laboratory Results - last 24 hr 04/21/25 04/21/25 04/22/25 16:19 23:57 05:08 WBC 6.0 6.4 RBC 3.62 L 3.52 L Hgb 11.6 L 11.4 L Hct 33.6 L 32.3 L MCV 92.8 91.8 MCH 32.1 32.3 MCHC 34.6 35.2 RDW 12.8 12.9 Plt Count 206 187 Neut % (Auto) 41.7 L 49.2 L Lymph % (Auto) 37.1 26.9 [place] % (Auto) 13.6 16.2 H Eos % (Auto) 6.5 H 7.0 H Baso % (Auto) 1.1 0.7 Neut # (Auto) 2500 3200 Lymph # (Auto) 2200 1700 [place] # (Auto) 800 1000 H Eos # (Auto) 400 400 Baso # (Auto) 100 0 PT 11.0 INR 1.0 APTT 28 Sodium 136 L 136 L Potassium 4.1 4.1 Chloride 103 106 Carbon Dioxide 26 24 BUN 17 13 Creatinine 0.98 0.85 Estimated GFR > 60 > 60 BUN/Creatinine Ratio 17.3 15.3 Glucose 116 H 105 H Calcium 9.0 8.7 Total Bilirubin 0.4 0.5 AST 31 26 ALT 27 21 Alkaline Phosphatase 62 57 Total Protein 7.3 6.7 Albumin 4.3 3.9 Globulin 3.0 2.8 Albumin/Globulin Ratio 1.4 1.4 Lipase 126 Urine Color Yellow Urine Appearance Clear Urine pH 7.0 Ur Specific [place] 1.015 Urine Protein Negative Urine Glucose (UA) Negative Urine Ketones Negative Urine Occult Blood Negative Urine Nitrate Negative Urine Bilirubin Negative Urine Urobilinogen 0.2 Ur Leukocyte Esterase Negative Urine RBC None seen Urine WBC None seen Ur Squamous Epith Cells None seen Urine Bacteria None seen Ur Culture Indicated? Cult not indicated Vol Urine Centrifuged 10ml (spun) Blood Type O Positive Antibody Screen Negative [facility] Medical History (Updated 04/21/25 @ 22:41 by Dede Mott RN) Small bowel obstruction History of melena Chronic right hip pain Acid reflux Essential hypertension Peripheral vascular disease Hernia (1987) Colon polyps (2016) GERD (gastroesophageal reflux disease) Hemorrhoids Mumps Chicken pox Acne (1961) Eczema (1950) Surgical History (Updated 04/14/25 @ 19:11 by Harish Timmons MD) H/O vein stripping History of colonoscopy with polypectomy (2016) Anesthesia History of carpal tunnel repair (04/26/17) Status post hernia repair (1997) Family History Brother Age: 81 Crohn's disease without complication, unspecified gastrointestinal tract location Father Alzheimer's dementia without behavioral disturbance, unspecified timing of dementia onset Tobacco use disorder Brother No problems noted. Grandfather No problems noted. Mother Hip fracture Social History household members: significant other Smoking Status: Former smoker alcohol intake: current Assessment & Plan Time-Based Coding :: [TOTAL MINUTES] spent with patient and on the chart (including review of chart, obtaining history, exam, reviewing outside data, placing orders, documenting exam and treatment plan, and counseling patient) on [DATE]. Quality VTE Deep Vein Thrombosis/Pulmonary Embolism Present on Admission: No
[2025-04-22 08:10] VITALS: BP 133/67; PULSE 64; RESP 17; TEMP 36.6; O2SAT 97
--- NOTE | 2025-04-22 11:11 | PM.PN.IH.1 ---
Subjective Subjective Date Patient Seen: 04/22/25 Time Patient Seen: 11:11 Interval history: Without complaints this a.m.. Notes no pain, nausea, vomiting, or fatigue. ?starving?. No BM since arrival to emergency room. Hemoglobin this a.m. stable. Tolerating clear liquid diet. Exam Vital Signs (past 8 hours): - 04/22/25 05:00 04/22/25 08:10 Temperature 98.5 F 97.9 F Pulse Rate 68 64 Respiratory Rate 16 17 Blood Pressure 124/59 L 133/67 Pulse Oximetry 98 97 Oxygen Flow Rate 0 0 Oxygen Delivery Method Room Air Oxygen Flow Rate 0 Narrative Exam Narrative: AVSS Alert and oriented x4; sitting up in bed enjoying music Regular rate and rhythm without murmur Respirations clear to auscultation bilaterally; no wheezes rales or rhonchi Abdomen protuberant, with mild incisional tenderness, and great bowel sounds Wounds clean dry and intact without erythema Moves all extremities x4 Objective Labs 04/22/25 05:08 04/22/25 05:08 Labs: Laboratory Results - last 24 hr 04/21/25 04/21/25 04/22/25 16:19 23:57 05:08 WBC 6.0 6.4 RBC 3.62 L 3.52 L Hgb 11.6 L 11.4 L Hct 33.6 L 32.3 L MCV 92.8 91.8 MCH 32.1 32.3 MCHC 34.6 35.2 RDW 12.8 12.9 Plt Count 206 187 Neut % (Auto) 41.7 L 49.2 L Lymph % (Auto) 37.1 26.9 Day % (Auto) 13.6 16.2 H Eos % (Auto) 6.5 H 7.0 H Baso % (Auto) 1.1 0.7 Neut # (Auto) 2500 3200 Lymph # (Auto) 2200 1700 Day # (Auto) 800 1000 H Eos # (Auto) 400 400 Baso # (Auto) 100 0 PT 11.0 INR 1.0 APTT 28 Sodium 136 L 136 L Potassium 4.1 4.1 Chloride 103 106 Carbon Dioxide 26 24 BUN 17 13 Creatinine 0.98 0.85 Estimated GFR > 60 > 60 BUN/Creatinine Ratio 17.3 15.3 Glucose 116 H 105 H Calcium 9.0 8.7 Total Bilirubin 0.4 0.5 AST 31 26 ALT 27 21 Alkaline Phosphatase 62 57 Total Protein 7.3 6.7 Albumin 4.3 3.9 Globulin 3.0 2.8 Albumin/Globulin Ratio 1.4 1.4 Lipase 126 Urine Color Yellow Urine Appearance Clear Urine pH 7.0 Ur Specific [place] 1.015 Urine Protein Negative Urine Glucose (UA) Negative Urine Ketones Negative Urine Occult Blood Negative Urine Nitrate Negative Urine Bilirubin Negative Urine Urobilinogen 0.2 Ur Leukocyte Esterase Negative Urine RBC None seen Urine WBC None seen Ur Squamous Epith Cells None seen Urine Bacteria None seen Ur Culture Indicated? Cult not indicated Vol Urine Centrifuged 10ml (spun) Blood Type O Positive Antibody Screen Negative PFSH Medical History (Updated 04/21/25 @ 22:41 by Dede Mott RN) Small bowel obstruction History of melena Chronic right hip pain Acid reflux Essential hypertension Peripheral vascular disease Hernia (1987) Colon polyps (2016) GERD (gastroesophageal reflux disease) Hemorrhoids Mumps Chicken pox Acne (1961) Eczema (1950) Surgical History (Updated 04/14/25 @ 19:11 by Harish Timmons MD) H/O vein stripping History of colonoscopy with polypectomy (2016) Anesthesia History of carpal tunnel repair (04/26/17) Status post hernia repair (1997) Family History Brother Age: 81 Crohn's disease without complication, unspecified gastrointestinal tract location Father Alzheimer's dementia without behavioral disturbance, unspecified timing of dementia onset Tobacco use disorder Brother No problems noted. Grandfather No problems noted. Mother Hip fracture Social History household members: significant other Smoking Status: Former smoker alcohol intake: current Assessment & Plan Assessment & Plan narrative: 74-year-old gentleman, status post laparoscopic cholecystectomy with small bowel resection, now with postoperative GI bleed -GI bleed appears to have abated; H and H are now stable -may advance diet as tolerated -discussed with Dr. Mendoza who also saw the patient at the same time with me; in agreement with plan -we will discuss with hospitalist Time-Based Coding :: [TOTAL MINUTES] spent with patient and on the chart (including review of chart, obtaining history, exam, reviewing outside data, placing orders, documenting exam and treatment plan, and counseling patient) on [DATE]. 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
[2025-04-22 13:21] VITALS: BP 127/65; PULSE 73; RESP 17; TEMP 36.3; O2SAT 99
--- NOTE | 2025-04-22 14:12 | P.DS_ITS ---
History of Present Illness
--- NOTE | 2025-04-22 14:12 | PM.DS.1 ---
History of Present Illness History of Present Illness Date Patient Seen: 04/22/25 Chief complaint: Post op, gi bleed Narrative: 74 years old male with history of hypertension, GERD, PVD, presented to the ER with rectal bleed. 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 Denies any fever, nausea, vomiting, abdominal pain, hematemesis, chest pain, shortness of breath or dysuria. History of small bowel obstruction around 4 years ago. Laboratory shows WBC 6, H&H 11.6/33.6, platelets 206, sodium 136, potassium 4.1, creatinine 0.98, blood sugar 116, LFT negative, lipase 126. Abdominal CT scan shows expected recent postoperative appearance, status post gallbladder resection and small bowel resection with widely patent anastomosis. EKG shows normal sinus rhythm of 65. Case was discussed with surgery on-call and recommended admission and n.p.o. after midnight. He was given Protonix 40 mg IV in the ER. Discharge Providers Provider Date of admission: 04/21/25 18:40 Discharge Date: 04/22/25 Primary care physician: Eze Carranza MD Discharge provider: Harish Timmons MD Summary Hospital Course Hospital Course: 74 years old male with history of hypertension, GERD, PVD, presented to the ER with rectal bleed. 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 Acute lower GI bleeding. Status post laparoscopic cholecystectomy and small bowel resection with anastomosis on May 16, 2025. -The bleeding was not present on the day of admission and has not returned. The Hgb has remained stable at 11.4 today. -Surgery saw him and cleared him for discharge. Follow up with Dr. Mendoza as scheduled already. Status at Discharge Cognitive/behavioral status at discharge: at baseline, oriented Functional status at discharge: independent ambulation Overall status at discharge: patient is back to baseline Time Spent with Patient Time spent: Less than 30 minutes Exam Vital Signs (past 8 hours): - 04/22/25 08:10 04/22/25 13:21 Temperature 97.9 F 97.3 F L Pulse Rate 64 73 Respiratory Rate 17 17 Blood Pressure 133/67 127/65 Pulse Oximetry 97 99 Oxygen Flow Rate 0 0 Oxygen Delivery Method Room Air Oxygen Flow Rate 0 Narrative Exam Narrative: Alert and oriented x3. No apparent distress. Heart is regular rate and rhythm without murmur. Lungs are clear to auscultation bilaterally. Abdomen is obese, bowel sounds positive, nontender, no organomegaly. Extremities have no ankle edema. Objective Labs 04/22/25 05:08 04/22/25 05:08 Labs: Laboratory Results - last 24 hr 04/21/25 04/21/25 04/22/25 16:19 23:57 05:08 WBC 6.0 6.4 RBC 3.62 L 3.52 L Hgb 11.6 L 11.4 L Hct 33.6 L 32.3 L MCV 92.8 91.8 MCH 32.1 32.3 MCHC 34.6 35.2 RDW 12.8 12.9 Plt Count 206 187 Neut % (Auto) 41.7 L 49.2 L Lymph % (Auto) 37.1 26.9 [place] % (Auto) 13.6 16.2 H Eos % (Auto) 6.5 H 7.0 H Baso % (Auto) 1.1 0.7 Neut # (Auto) 2500 3200 Lymph # (Auto) 2200 1700 [place] # (Auto) 800 1000 H Eos # (Auto) 400 400 Baso # (Auto) 100 0 PT 11.0 INR 1.0 APTT 28 Sodium 136 L 136 L Potassium 4.1 4.1 Chloride 103 106 Carbon Dioxide 26 24 BUN 17 13 Creatinine 0.98 0.85 Estimated GFR > 60 > 60 BUN/Creatinine Ratio 17.3 15.3 Glucose 116 H 105 H Calcium 9.0 8.7 Total Bilirubin 0.4 0.5 AST 31 26 ALT 27 21 Alkaline Phosphatase 62 57 Total Protein 7.3 6.7 Albumin 4.3 3.9 Globulin 3.0 2.8 Albumin/Globulin Ratio 1.4 1.4 Lipase 126 Urine Color Yellow Urine Appearance Clear Urine pH 7.0 Ur Specific [place] 1.015 Urine Protein Negative Urine Glucose (UA) Negative Urine Ketones Negative Urine Occult Blood Negative Urine Nitrate Negative Urine Bilirubin Negative Urine Urobilinogen 0.2 Ur Leukocyte Esterase Negative Urine RBC None seen Urine WBC None seen Ur Squamous Epith Cells None seen Urine Bacteria None seen Ur Culture Indicated? Cult not indicated Vol Urine Centrifuged 10ml (spun) Blood Type O Positive Antibody Screen Negative PFSH Medical History (Updated 04/21/25 @ 22:41 by Dede Mott RN) Small bowel obstruction History of melena Chronic right hip pain Acid reflux Essential hypertension Peripheral vascular disease Hernia (1987) Colon polyps (2016) GERD (gastroesophageal reflux disease) Hemorrhoids Mumps Chicken pox Acne (1961) Eczema (1950) Surgical History (Updated 04/14/25 @ 19:11 by Harish Timmons MD) H/O vein stripping History of colonoscopy with polypectomy (2016) Anesthesia History of carpal tunnel repair (04/26/17) Status post hernia repair (1997) Family History Brother Age: 81 Crohn's disease without complication, unspecified gastrointestinal tract location Father Alzheimer's dementia without behavioral disturbance, unspecified timing of dementia onset Tobacco use disorder Brother No problems noted. Grandfather No problems noted. Mother Hip fracture Social History household members: significant other Smoking Status: Former smoker alcohol intake: current Discharge Plan Discharge Plan Patient Disposition: Home Provider Discharge Comment: Follow up with Dr. Mendoza as already scheduled Discharge orders & Medications Prescriptions: Continued Zepbound 5 mg/0.5 mL solution 5 mg SUBCUT QWEEK Qty: 2 0RF omeprazole 20 mg capsule,delayed release(DR/EC) 20 mg PO DAILY naproxen sodium [Aleve] 220 mg tablet 440 mg PO DAILY PRN (Reason: pain) Follow up/Referrals: Eze Carranza MD [Primary Care Provider, Family Practice] Diet/Activity/Treatments Diet: Regular Visit Report/Discharge Packet Stand Alone Forms: Patient Portal/API, Stroke Signs & Symptoms Discharge Data Primary Care Provider: Eze Carranza Quality VTE Deep Vein Thrombosis/Pulmonary Embolism Present on Admission: No
--- NOTE | 2025-04-22 14:41 | CM.DANOTE ---
DCP Assessment note pt is a 74yo readmit, lap clayton done a week ago by Dr. Mendoza. returned with concern for GI bleed. UPHOLSTERY REPAIRER reviewed EMR. per provider, H&H stable. no more stool with clots. able to tolerate diet. per surgeon note, cleared for DC home and OP f/u. UPHOLSTERY REPAIRER met with pt in room. confirms lives indep in [place] with partner. no DME/no hx SNF/HH. denies any DCP/CM needs at this time. only question was if he could eat. UPHOLSTERY REPAIRER updated RN, RN will f/u with pt on his diet orders. P: dc home today with partner support and OP f/u. no identified barriers to safe dc home at this time. 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 Unknown History Provided By Patient Prior Living House Arrangements Household Members significant other Type of Drives own vehicle transporation used prior to admit Independent with ADL Yes 's Is patient alert and Yes oriented? Discharge Plan Home Referrals Initiated None needed Review Status In Process Please Provide Date 04/22/25 Initial DC Assessment Was Performed Next Review Type Continued Stay Review
== END 2025-04-22 15:24 | disposition home or self-care (01) ==
LOC: ED 16:16 → AC 19:00
PROVIDERS: Admitting Provider Family Medicine; Emergency Provider Family Medicine; PCP Family Medicine; Referring Provider Family Medicine; Visit Provider Family Medicine
DX: K91.840 Postprocedural hemorrhage of a digestive system organ or structure following a digestive system procedure (principal); I10 Essential (primary) hypertension; K21.9 Gastro-esophageal reflux disease without esophagitis; I73.9 Peripheral vascular disease, unspecified; Z87.891 Personal history of nicotine dependence
CPT/HCPCS: 36415; 74177; 80053; 81001; 82272; 83690; 85025; 85610; 85730; 86850; 86900; 86901; 93005; 96361; 96374; 99284; G0378; J2470; J7030

== ENCOUNTER → 2025-06-16 13:25 | Outpatient (CLI) | payer MEDICARE, SELFPAY ==
[2025-04-21 21:51] VITALS: BMI 32.8
[2025-06-16 13:53] LABS: Add Manual Diff / Slide Review NO; Hematocrit 37.5 % (41-53); Hemoglobin 12.6 g/dL (13.5-17.5); Lymphocytes Absolute Auto 2500 /uL (1100-4500); Mean Corpuscular HGB Conc 33.8 % (30-36); Mean Corpuscular Hemoglobin 29.9 PG (26-34); Mean Corpuscular Volume 88.5 fL (80-100); Platelet Count 212 X10^3/uL (150-400)
[2025-06-16 14:05] LABS: Alanine Aminotransferase 17 IU/L (<50); Albumin 4.6 g/dL (3.5-5.0); Albumin Globulin Ratio 1.5 (1.0-2.8); Alkaline Phosphatase 69 U/L (38-126); Blood Urea Nitrogen 16 mg/dL (9-20); Calcium 9.3 mg/dL (8.4-10.2); Carbon Dioxide 25 mmol/L (22-32); Chloride 103 mmol/L (98-107); Estimated Glomerular Filt Rate > 60 mL/min (>60); Globulin 3.1 g/dL (1.7-4.1); Glucose 103 mg/dL (70-99); HEMOLYSIS < 15 (0-50); Potassium 4.8 mmol/L (3.4-5.1); Sodium 137 mmol/L (137-145); Total Protein 7.7 g/dL (6.3-8.2)
== END ==
PROVIDERS: PCP Family Medicine; Referring Provider Internal Medicine Hematology & Oncology; Visit Provider Internal Medicine Hematology & Oncology
DX: D3A.8 Other benign neuroendocrine tumors (principal)
CPT/HCPCS: 36415; 80053; 85025; 86316

== ENCOUNTER → 2025-06-18 12:56 | Outpatient (CLI) | payer MEDICARE, SELFPAY ==
[2025-04-21 21:51] VITALS: BMI 32.8
[2025-06-20 21:12] LABS: 5-HIAA, UR 24HR 7.8 mg/24 hr (0.0-14.9); 5-HIAA, Urine 2.6 mg/L (Undefined)
== END ==
PROVIDERS: PCP Family Medicine; Referring Provider Internal Medicine Hematology & Oncology; Visit Provider Internal Medicine Hematology & Oncology
DX: D3A.8 Other benign neuroendocrine tumors (principal)
CPT/HCPCS: 83497